=== PATIENT | male | born 1955 | race Caucasian/White ===

== ENCOUNTER 2023-05-11 09:18 | Inpatient (IN) | payer OTHER ==
--- OUTSIDE RECORDS SUMMARY | 2023-05-11 09:26 | XMS REPORT | Continuity of Care Document ---
:1955 Author Organization [facility] t Address [address] [place] [address] [place] [id number] Care Team Providers Name Role Phone Susan Hector Primary Care Physician Asaf Mosqueda RN Attending Clinician Unavailable Talya Stanley RN Attending Clinician Unavailable Margy Mike MD Attending Clinician Radha BERGMAN, Bigg Albright Attending Clinician Karoline PEÑA, Eugenio Blake Attending Clinician [phone] Domi Newman MD, Danita Attending Clinician [phone] Berry Morrow MD Attending Clinician Monty aPlm MD Attending Clinician Nisreen Haney MA Attending Clinician Unavailable Honey Hernandez RN Attending Clinician Unavailable Vandana Richard MD Attending Clinician [phone] Mary PEÑA, Virgilio Soto Attending Clinician [phone] Carol Akbar Attending Clinician Unavailable GARETT RANDLE Attending Clinician Unavailable Brittany Franco RN Attending Clinician Unavailable James SCHULTE, Aubrey Attending Clinician Unavailable Suzie Forrest RN Attending Clinician Unavailable Alex Del Valle Attending Clinician Unavailable Latoya Correa MA Attending Clinician Unavailable Faith Lux MD Attending Clinician [phone] Provider, Unknown Attending Clinician Unavailable Reny Attending Clinician Unavailable Herve PEÑA, Anoop Attending Clinician Renzo PEÑA, Leonidas Huitron Attending Clinician [phone] Scott Butler MA Attending Clinician Unavailable Mary Alice PE[facility] Gillian PEÑA, Herbie Attending Clinician Rodney MORALES, Rubens Azevedo Attending Clinician [phone] Rodriguez PEÑA, Kristopher Mckeon Attending Clinician Kayla MORALES, Linda Sewell Attending Clinician [phone] [facility], Ana Laura Attending Clinician Unavailable Natasha Toussaint Attending Clinician Unavailable Ashlie RN, Patricia Attending Clinician Unavailable Ailyn Rodriguez MA Attending Clinician Unavailable Ahmet Lamas MD Attending Clinician Kayy Attending Clinician Unavailable Talya Washington Attending Clinician Rolan Leal MD Attending Clinician Winter Mendoza APRN Attending Clinician Rajani Alves MA Attending Clinician Unavailable Cipriano Leiva MD Attending Clinician Darion Dykes Attending Clinician [phone] MD AHMET LAMAS Attending Clinician Unavailable Juaquin Tyler Attending Clinician [phone] EUGENIO MCKEON Admitting Clinician Unavailable FAITH LUX Admitting Clinician Unavailable Reny Admitting Clinician Unavailable ANOOP EDGAR Admitting Clinician Unavailable MD KRISTOPHER FRIAS Admitting Clinician Unavailable Kayy Admitting Clinician Unavailable AHMET LAMAS Admitting Clinician Unavailable ANDREW GOINS Admitting Clinician Unavailable Payers Payer Name Policy Type Policy Number Effective Date Expiration Date Margarita MCALLISTER (MEDICARE [id number] 2021 REPLACEMENT PPO) 00:00:00 ESVIN [id number] 2000 2021 00:00:00 00:00:00 Problems Condition Condition Condition Status Onset Resolution Last Treating Co mments Source Name Details Category Date Date Treatment Clinician Date Acute Acute Disease Active 2022-07 [facility] hepatic hepatic 0-08 st encephalop encephalop 00:00: Ho spita athy athy 00 l Other Other Disease Active [facility] ascites ascites 03-28 st 00:00: Hospita 00 l Disorder Disorder Disease Active [facility] di of liver of liver 03-28 st 00:00: Hospita 00 l AV block AV block Disease Active [facility] di 02-08 st 00:00: Hospita 00 l Diabetes Diabetes Disease Active [facility] di mellitus mellitus 02-08 st without without 00:00: Hospita complicati complicati 00 l on on Hyperlipid Hyperlipid Disease Active M ethodi emia emia 02-08 st 00:00: Hospita 00 l Rodney Rodney Problem Active Strong hematuria Hematuria 5-03 Metr o 00:00: Urology 00 Sick sinus Sick sinus Disease Active M ethodi syndrome syndrome 11-09 st 00:00: Hospita 00 l CAD CAD Disease Active Overview: Method i (coronary (coronary 3-15 Formattin s t artery artery 00:00: g of this Hospita disease) disease) 00 note l might be different from the original. 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 00:00: Hospit a 00 l Right Right Problem Active 2020-07 [facility] inguinal Inguinal 0-25 [facility] hernia Hernia 00:00: Urology 00 Neoplasm Neoplasm Problem Active 2018-07 [place] of of 1-13 [facility] prostate Prostate 00:00: Urolog y 00 Raised Raised Problem Active 2018-07 [facility] prostate Prostate 1-10 [facility] specific Specific 00:00: Urolog y antigen Antigen 00 Benign Benign Disease Active 2018-07 [facility] prostatic prostatic 0-03 st hyperplasi hyperplasi 00:00: Ho spita a with a with 00 l urinary urinary obstructio obstructio n n History of History of Problem Active 2018-07 H imer calculus Calculus 0-03 [facility] of kidney of Kidney 00:00: Urol ogy 00 Hypertensi Hypertensi Disease Active M ethodi ve ve 3-29 st disorder disorder 00:00: Hospit a 00 l Kidney Kidney Problem Active [facility] stone Stone 3-29 [facility] 00:00: Urology 00 Family Family Problem Active [facility] history of History of 3-29 Me tro prostate Prostate 00:00: Urolog y cancer Cancer 00 Arteriopat Arteriopat Problem Active H imer hic hic 3-29 [facility] impotence Impotence 00:00: Urol ogy 00 Liver Liver Disease Active [facility] cirrhosis cirrhosis st secondary secondary Hosp es to ANGUIANO to ANGUIANO l Allergies, Adverse Reactions, Alerts Allergy Allergy Status Severity Reaction(s) Onset Inactive Treating Comm ents Source Name Type Date Date Clinician Strawber Propensi Active Rash 2022-07 Method i ry ty to 0-09 st adverse 00:00: Hospita reaction 00 l s to drug Sulfa Propensi Active Rash 2020-07 [facility] (Sulfona ty to 1 st mide adverse 00:00: Hospita Antibiot reaction 00 l ics) s to drug SULFUR Allergy Active Moderate Hives [facility] to to severe [facility] substanc Urology e Social History Social Habit Start Date Stop Date Quantity Comments Source Gender identity 2021-05-11 Identifies as male M ethodist 10:57:57 gender (finding) Hospital Sexual orientation 2021-05-11 Heterosexual Meth odist 10:57:57 (finding) Hospital History of tobacco Passive smoker [facility] use Hospital History of Social 2023-04-24 2023-04-[address] function 00:00:00 00:00:00 Hospital Alcohol intake 2023-01-08 2023-01-08 Current drinker of Me [facility]ist 00:00:00 00:00:00 alcohol (finding) Hospita l Cigarette 2022-07-06 2022-07-06 [facility]into pack-years 00:00:00 00:00:00 Hospital Tobacco use and 2022-07-06 2022-07-06 Smokeless tobacco [facility] exposure 00:00:00 00:00:00 non-user Hospital Alcohol Comment 2022-01-02 2022-01-02 occasional [facility]into 00:00:00 00:00:00 Hospital Sex Ass[birth year] At [birth year] M [facility] 00:00:00 00:00:00 Hospital Smoking Status Start Date Stop Date Source Never smoked tobacco [facility] Medications Ordered Filled Start Stop Current Ordering Indication Dosage Frequency Signature Comments Components Source Medication Medication Date Date Medication? Clinician (SIG) Name Name lactulose 2022-07- No 200g Insert 300 M ethodi 20 gram/30 0-16 10-17 mL ([address] mL solution 00:00: 04:59 total) Hos jenni solution 00 :00 into the l rectum once for 1 dose. zinc 2022-07- Yes 1{capsu QD Take 1 [facility] sulfate 0-12 11-12 le} capsule by st (ZINCATE) 00:00: 05:59 mouth Hospit a 50 mg zinc 00 :00 daily for l (220 mg) 30 days. capsule vit 2022-07- No 1{tbl} QD Take 1 [facility] C/E/Zn/liz 0-11 10-[address] r/lutein/ze 15:33: 00:00 mouth Hosp es axan 43 :00 daily. l (PRESERVISI ON AREDS-2 ORAL) levothyroxi 2022-07 Yes 75ug QD Take 1 Meth ramesh ne 0-11 tablet (75 st (SYNTHROID) 15:33: mcg total) Hospita 75 mcg 41 by mouth l tablet every morning. cholecalcif 2022-07 Yes 5000U QD Take 1 Met hodi jass, 0-[address] vitamin D3, 15:33: (5,000 Hosp es 5,000 unit 41 Units l capsule total) by mouth daily. propranoloL 2022-07 Yes 10mg Q.5D Take 1 Meth ramesh (INDERAL) 0-11 tablet (10 st 10 MG 15:33: mg total) Hospita tablet 41 by mouth 2 l (two) times a day. AMILoride 2022-07 Yes 20mg QD Take 4 Method i (MIDAMOR) 5 0-[address] MG tablet 15:33: (20 mg Hospit a 41 total) by l mouth daily. Patient takes 4 tablets once daily traMADoL 2022-07 Yes [id number] 50mg Q6H Take 1 Method i (ULTRAM) 50 0-11 tablet (50 st mg tablet 15:33: mg total) Hos jenni 41 by mouth l every 6 (six) hours as needed for moderate pain .acute pain. lactulose 2022-07- Yes 20g [id number] Take 30 mL [facility] 20 gram/30 0-11 11-11 [id number] (20 g s t mL solution 00:00: 05:59 3D total) by Hospita 00 :00 mouth 3 l (three) times a day for 30 days. lactulose 2022-07- No 10g QD Take 15 mL M ethodi 10 gram/15 0-03 10-11 ([address] mL (15 mL) 00:00: 00:00 total) by H ospita solution 00 :00 mouth l daily for 30 days. furosemide 2022-07- Yes 40mg Q.5D Take 1 Meth ramesh (LASIX) 40 0-02 11-02 tablet (40 st mg tablet 00:00: 04:59 mg total) Ho spita 00 :00 by mouth 2 l (two) times a day for 30 days. lactulose 2022- No 10g Q.[id number] Take 15 mL [facility] (CHRONULAC) 9-12 10-02 [id number] ([address] 10 gram/15 00:00: 00:00 3D total) by H ospita mL solution 00 :00 mouth 3 l (three) times a day as needed (confusion ). riFAXimin 2022-0 Yes 550mg Q.5D Take 1 Metho di (Xifaxan) 9-[address] 550 mg 00:00: (550 mg Hospita tablet 00 total) by l mouth 2 (two) times a day. clopidogreL 2022-0 2022- No 75mg QD Take 1 Met hodi (PLAVIX) 75 12-18- tablet (75 s t mg tablet 00:00: 00:00 mg total) Ho spita 00 :00 by mouth l daily for 360 days. aspirin 2022-0 2022- No 81mg QD Take 1 [facility] (ECOTRIN) 12-18 08-10 tablet (81 st 81 MG 00:00: 00:00 mg total) Hospit a enteric 00 :00 by mouth l coated daily for tablet 360 days. aspirin 2022-0 2022- No 81mg QD Take 1 [facility] (ECOTRIN) 12-14- tablet (81 st 81 MG 11:24: 00:00 mg total) Hospit a enteric 24 :00 by mouth l coated daily. tablet Stop a year ago propranoloL 2022-0 Yes 10mg Q.5D Take 1 Meth ramesh (INDERAL) 4-29 tablet (10 st 10 MG 15:52: mg total) Hospita tablet 00 by mouth 2 l (two) times a day. AMILoride 2022-0 Yes 20mg QD Take 4 Method i (MIDAMOR) 5 4-[address] MG tablet 15:52: (20 mg Hospit a 00 total) by l mouth daily. Patient takes 4 tablets daily as per aspirin 2022-0 Yes 81mg QD Take 1 [facility] (ECOTRIN) 4-29 tablet (81 st 81 MG 15:52: mg total) Hospita enteric 00 by mouth l coated daily. tablet levothyroxi 2022-0 Yes 75ug QD Take 1 Meth ramesh ne 4-28 tablet (75 st (SYNTHROID) 15:54: mcg total) Hospita 75 mcg 15 by mouth l tablet daily. vit 2022-0 Yes Take by [facility] C/E/Zn/liz 4-[address] r/lutein/ze 15:54: Last dose H ospita axan 15 taken l (PRESERVISI 12/26/2021 ON AREDS-2 ORAL) cholecalcif 2022-0 Yes QD daily. Meth ramesh jass, 11-[address] vitamin D3, 15:54: taken Hospi ta 1,000 unit 15 12/26/2021 l tablet aspirin 2022-0 2022- No 81mg QD Take 1 [facility] (ECOTRIN) 11-09 tablet (81 st 81 MG 07:16: 00:00 mg total) Hospit a enteric 03 :00 by mouth l coated daily. tablet Last dose taken 12/26/2021 aspirin 2022-0 3- No 81mg QD Take 1 [facility] (ECOTRIN) 11-09 tablet (81 st 81 MG 07:16: 00:00 mg total) Hospit a enteric 03 :00 by mouth l coated daily. tablet Last dose taken 12/26/2021 cinnamon 2022-0 2022- No Q24H daily. Method i bark 500 mg 11-09 st capsule 07:15: 00:00 Hospita 14 :00 l cinnamon 2022-0 3- No Q24H daily. Method i bark 500 mg 11-09 st capsule 07:15: 00:00 Hospita 14 :00 l coenzyme 2022-0 2022- No 100mg QD Take 1 Metho di Q10 100 mg 11-[address] capsule 07:15: 00:00 (100 mg Hospit a 07 :00 total) by l mouth daily. Last dose taken 12/26/2021 coenzyme 2022-0 3- No 100mg QD Take 1 Metho di Q10 100 mg 11-[address] capsule 07:15: 00:00 (100 mg Hospit a 07 :00 total) by l mouth daily. Last dose taken 12/26/2021 cephalexin 2022-0 2022- No 250mg Q.5D Take 1 Met hodi (KEFLEX) 3-25 -[address] 250 MG 00:00: 04:59 (250 mg Hospita capsule 00 :00 total) by l mouth 2 (two) times a day for 7 days. cephalexin 2022-0 2022- No 250mg Q.5D Take 1 Met hodi (KEFLEX) 3-25 -[address] 250 MG 00:00: 04:59 (250 mg Hospita capsule 00 :00 total) by l mouth 2 (two) times a day for 7 days. pantoprazol 2021-07 Yes 40mg Q.5D Take 1 Meth ramesh e 0-17 tablet (40 st (PROTONIX) 00:00: mg total) Ho spita 40 MG EC 00 by mouth 2 l tablet (two) times a day. pantoprazol 2021-07 Yes 40mg Q.5D Take 1 Meth ramesh e 0-17 tablet (40 st (PROTONIX) 00:00: mg total) Ho spita 40 MG EC 00 by mouth 2 l tablet (two) times a day. spironolact 2021-07- No Metho di one 0- 04-28 st (ALDACTONE) 00:00: 00:00 Hospi ta 100 MG 00 :00 l tablet spironolact 2021-07- No Metho di one 0- 04-28 st (ALDACTONE) 00:00: 00:00 Hospi ta 100 MG 00 :00 l tablet furosemide Yes 40mg QD Take 1 Metho di (LASIX) 40 7-14 tablet (40 st mg tablet 00:00: mg total) Hos jenni 00 by mouth l daily. lactulose Yes TAKE BY Metho di (CHRONULAC) [address] 10 gram/15 00:00: TWICE A Hosp es mL solution 00 DAY l furosemide 2022- No 40mg QD Take 1 Meth ramesh (LASIX) 40 7-14 10-02 tablet (40 st mg tablet 00:00: 00:00 mg total) Ho spita 00 :00 by mouth l daily. lactulose 2022- No 10g Q.5D Take 15 mL M ethodi (CHRONULAC) 01-25-12 ([address] 10 gram/15 00:00: 00:00 total) by H ospita mL solution 00 :00 mouth 2 l (two) times a day. gabapentin 2021- No 100mg Q.[id number] Take 1 [facility] (NEURONTIN) 01-[id number] 100 mg 00:00: 04:59 3D (100 mg Hospita capsule 00 :00 total) by l mouth 3 (three) times a day for 5 days. traMADoL 2021- No [id number] 50mg Q6H Take 1 Metho di (Ultram) 50 01-12 tablet (50 s t mg tablet 00:00: 04:59 mg total) Ho spita 00 :00 by mouth l every 6 (six) hours as needed for moderate pain for up to 5 days .acute pain. acetaminoph 2021- No 1000mg Q6H Take 2 M ethodi en 01-[address] (TYLENOL) 00:00: 04:59 (1,000 mg Ho spita 500 MG 00 :00 total) by l tablet mouth every 6 (six) hours for 3 days. Lidocaine Lidocaine No Lidocaine Strong Viscous 2 % Viscous 2 % Viscous 2 [facility] mucosal mucosal % mucosal Urol ogy solution solution solution [place] 3-6-9 [facility] 3-6-9 No Q1D [place] Strong 1,200 mg 1,200 mg 3-6-9 [facility] capsule capsule 1,200 mg Urolo gy Take every Take every capsule day by oral day by oral Take every route. route. day by oral route. pantoprazol pantoprazol No pantoprazo [facility] e 40 mg e 40 mg le 40 mg [facility] tablet,jacinto tablet,jacinto tablet,del Urology yed release yed release ayed TAKE 1 TAKE 1 release TABLET BY TABLET BY TAKE 1 MOUTH TWO MOUTH TWO TABLET BY TIMES DAILY TIMES DAILY MOUTH TWO TIMES DAILY propranolol propranolol No propranolo Strong 10 mg 10 mg l 10 mg [facility] tablet TAKE tablet TAKE tablet Urology 1 TABLET BY 1 TABLET BY TAKE 1 MOUTH TWICE MOUTH TWICE TABLET BY A DAY A DAY MOUTH .START / .START /2 TWICE A DOSE FOR 1 DOSE FOR 1 DAY .START WEEK WEEK 1/2 DOSE FOR 1 WEEK tramadol 50 tramadol 50 No tramadol Strong mg tablet mg tablet 50 mg Metr o TAKE 1 TAKE 1 tablet Urology TABLET BY TABLET BY TAKE 1 MOUTH EVERY MOUTH EVERY TABLET BY 8 HOURS 8 HOURS MOUTH NEEDED FOR NEEDED FOR EVERY 8 PAIN START PAIN START HOURS AFTER AFTER NEEDED FOR PROCEDURE PROCEDURE PAIN START AFTER PROCEDURE Vitamin B6 Vitamin B6 No Vitamin B6 Strong QD QD QD [facility] Asprin Ec Asprin Ec No 1 Q1D Asprin Ec Strong Low Dose 81 Low Dose 81 Low Dose [facility] mg mg 81 mg Urology tablet,jacinto tablet,jacinto tablet,del yed release yed release ayed Take 1 Take 1 release tablet tablet Take 1 every day every day tablet by oral by oral every day route. route. by oral route. Cinnamon Cinnamon No Q1D Cinnamon Evin ston 500 mg 500 mg 500 mg [facility] capsule capsule capsule Urolog y Take every Take every Take every day by oral day by oral day by route. route. oral route. coenzyme coenzyme No coenzyme Evin ston Q10 QD Q10 QD Q10 QD [facility] Flucelvax Flucelvax No Flucelvax [facility] Quad Quad [facility] (PF) 60 mcg (PF) 60 mcg (PF) 60 (15 mcg x (15 mcg x mcg (15 4)/0.5 mL 4)/0.5 mL mcg x IM syringe IM syringe 4)/0.5 mL TO BE TO BE IM syringe ADMINISTERE ADMINISTERE TO BE D BY D BY ADMINISTER PHARMACIST PHARMACIST ED BY FOR FOR PHARMACIST IMMUNIZATIO IMMUNIZATIO FOR N N IMMUNIZATI ON irbesartan irbesartan No irbesartan [facility] 300 mg 300 mg 300 mg [facility] tablet TAKE tablet TAKE tablet Urology 1 TABLET BY 1 TABLET BY TAKE 1 MOUTH EVERY MOUTH EVERY TABLET BY DAY DAY MOUTH EVERY DAY levothyroxi levothyroxi No levothyrox [facility] ne 75 mcg ne 75 mcg ine 75 mcg [facility] tablet TAKE tablet TAKE tablet Urology 1 TABLET BY 1 TABLET BY TAKE 1 MOUTH EVERY MOUTH EVERY TABLET BY DAY DAY MOUTH EVERY DAY [facility] 3-6-9 [facility] 3-6-9 No Q1D [place] [facility] 1,200 mg 1,200 mg 3-6-9 [facility] capsule capsule 1,200 mg Urolo gy Take every Take every capsule day by oral day by oral Take every route. route. day by oral route. rosuvastati rosuvastati No rosuvastat [facility] n 10 mg n 10 mg in 10 mg [facility] tablet Take tablet Take tablet Urology 1 tablet 1 tablet Take 1 every day every day tablet by oral by oral every day route. route. by oral route. Shingrix Shingrix No Shingrix Evin ston (PF) 50 (PF) 50 (PF) 50 [facility] mcg/0.5 mL mcg/0.5 mL mcg/0.5 mL Urology intramuscul intramuscul intramuscu ar ar lar suspension, suspension, suspension kit kit , kit PHARMACY PHARMACY PHARMACY ADMINISTERE ADMINISTERE ADMINISTER D D ED Vitamin B6 Vitamin B6 No Vitamin B6 [facility] QD QD QD [facility] Asprin Ec Asprin Ec No 1 Q1D Asprin Ec [facility] Low Dose 81 Low Dose 81 Low Dose [facility] mg mg 81 mg Urology tablet,jacinto tablet,jacinto tablet,del yed release yed release ayed Take 1 Take 1 release tablet tablet Take 1 every day every day tablet by oral by oral every day route. route. by oral route. Cinnamon Cinnamon No Q1D Cinnamon Evin ston 500 mg 500 mg 500 mg [facility] capsule capsule capsule Urolog y Take every Take every Take every day by oral day by oral day by route. route. oral route. coenzyme coenzyme No coenzyme Evin ston Q10 QD Q10 QD Q10 QD [facility] Flucelvax Flucelvax No Flucelvax [facility] Quad Quad Quad [facility] (PF) 60 mcg (PF) 60 mcg (PF) 60 (15 mcg x (15 mcg x mcg (15 4)/0.5 mL 4)/0.5 mL mcg x IM syringe IM syringe 4)/0.5 mL TO BE TO BE IM syringe ADMINISTERE ADMINISTERE TO BE D BY D BY ADMINISTER PHARMACIST PHARMACIST ED BY FOR FOR PHARMACIST IMMUNIZATIO IMMUNIZATIO FOR N N IMMUNIZATI ON irbesartan irbesartan No irbesartan [facility] 300 mg 300 mg 300 mg [facility] tablet TAKE tablet TAKE tablet Urology 1 TABLET BY 1 TABLET BY TAKE 1 MOUTH EVERY MOUTH EVERY TABLET BY DAY DAY MOUTH EVERY DAY levothyroxi levothyroxi No levothyrox [facility] ne 75 mcg ne 75 mcg ine 75 mcg [facility] tablet TAKE tablet TAKE tablet Urology 1 TABLET BY 1 TABLET BY TAKE 1 MOUTH EVERY MOUTH EVERY TABLET BY DAY DAY MOUTH EVERY DAY [facility] 3-6-9 [facility] 3-6-9 No Q1D [facility] 1,200 mg 1,200 mg 3-6-9 [facility] capsule capsule 1,200 mg Urolo gy Take every Take every capsule day by oral day by oral Take every route. route. day by oral route. rosuvastati rosuvastati No rosuvastat [facility] n 10 mg n 10 mg in 10 mg [facility] tablet Take tablet Take tablet Urology 1 tablet 1 tablet Take 1 every day every day tablet by oral by oral every day route. route. by oral route. Shingrix Shingrix No Shingrix Evin ston (PF) 50 (PF) 50 (PF) 50 [facility] mcg/0.5 mL mcg/0.5 mL mcg/0.5 mL Urology intramuscul intramuscul intramuscu ar ar lar suspension, suspension, suspension kit kit , kit PHARMACY PHARMACY PHARMACY ADMINISTERE ADMINISTERE ADMINISTER D D ED Vitamin B6 Vitamin B6 No Vitamin B6 [facility] QD QD QD [facility] amiloride 5 amiloride 5 No amiloride Strong mg tablet mg tablet 5 mg [facility] TAKE 4 TAKE 4 tablet Urology TABLETS BY TABLETS BY TAKE 4 MOUTH EVERY MOUTH EVERY TABLETS BY DAY DAY MOUTH EVERY DAY Cinnamon Cinnamon No Q1D Cinnamon Evin ston 500 mg 500 mg 500 mg [facility] capsule capsule capsule Urolog y Take every Take every Take every day by oral day by oral day by route. route. oral route. coenzyme coenzyme No coenzyme Evin ston Q10 QD Q10 QD Q10 QD [facility] furosemide furosemide No furosemide [facility] 40 mg 40 mg 40 mg [facility] tablet TAKE tablet TAKE tablet Urology 1 TABLET BY 1 TABLET BY TAKE 1 MOUTH EVERY MOUTH EVERY TABLET BY DAY DAY MOUTH EVERY DAY gabapentin gabapentin No gabapentin [facility] 100 mg 100 mg 100 mg [facility] capsule capsule capsule Urolog y TAKE 1 TAKE 1 TAKE 1 CAPSULE CAPSULE CAPSULE (100 MG (100 MG (100 MG TOTAL) BY TOTAL) BY TOTAL) BY MOUTH 3 MOUTH 3 MOUTH 3 (THREE) (THREE) (THREE) TIMES A DAY TIMES A DAY TIMES A FOR 5 DAYS. FOR 5 DAYS. DAY FOR 5 DAYS. lactulose lactulose No lactulose [facility] 10 gram/15 10 gram/15 10 gram/15 [facility] mL oral mL oral mL oral Urolog y solution solution solution TAKE BY TAKE BY TAKE BY MOUTH 15ML MOUTH 15ML MOUTH 15ML TWICE A DAY TWICE A DAY TWICE A DAY levothyroxi levothyroxi No levothyrox [facility] ne 75 mcg ne 75 mcg ine 75 mcg [facility] tablet TAKE tablet TAKE tablet Urology 1 TABLET BY 1 TABLET BY TAKE 1 MOUTH EVERY MOUTH EVERY TABLET BY DAY IN THE DAY IN THE MOUTH MORNING ON MORNING ON EVERY DAY EMPTY EMPTY IN THE STOMACH FOR STOMACH FOR MORNING ON 90 DAYS 90 DAYS EMPTY STOMACH FOR 90 DAYS Lidocaine Lidocaine No Lidocaine [facility] Viscous 2 % Viscous 2 % Viscous 2 [facility] mucosal mucosal % mucosal Urol ogy solution solution solution [place] 3-6-9 [facility] 3-6-9 No Q1D [place] [facility] 1,200 mg 1,200 mg 3-6-9 [facility] capsule capsule 1,200 mg Urolo gy Take every Take every capsule day by oral day by oral Take every route. route. day by oral route. pantoprazol pantoprazol No pantoprazo Strong e 40 mg e 40 mg le 40 mg [facility] tablet,jacinto tablet,jacinto tablet,del Urology yed release yed release ayed TAKE 1 TAKE 1 release TABLET BY TABLET BY TAKE 1 MOUTH TWO MOUTH TWO TABLET BY TIMES DAILY TIMES DAILY MOUTH TWO TIMES DAILY propranolol propranolol No propranolo [facility] 10 mg 10 mg l 10 mg [facility] tablet TAKE tablet TAKE tablet Urology 1 TABLET BY 1 TABLET BY TAKE 1 MOUTH TWICE MOUTH TWICE TABLET BY A DAY A DAY MOUTH .START 07/16 .START 07/16 TWICE A DOSE FOR 1 DOSE FOR 1 DAY .START WEEK WEEK 07/16 DOSE FOR 1 WEEK tramadol 50 tramadol 50 No tramadol Strong mg tablet mg tablet 50 mg Metr o TAKE 1 TAKE 1 tablet Urology TABLET BY TABLET BY TAKE 1 MOUTH EVERY MOUTH EVERY TABLET BY 8 HOURS 8 HOURS MOUTH NEEDED FOR NEEDED FOR EVERY 8 PAIN START PAIN START HOURS AFTER AFTER NEEDED FOR PROCEDURE PROCEDURE PAIN START AFTER PROCEDURE Vitamin B6 Vitamin B6 No Vitamin B6 [facility] QD QD QD [facility] amiloride 5 amiloride 5 No amiloride Strong mg tablet mg tablet 5 mg [facility] TAKE 4 TAKE 4 tablet Urology TABLETS (20 TABLETS (20 TAKE 4 MG) BY MG) BY TABLETS MOUTH DAILY MOUTH DAILY (20 MG) BY WITH FOOD WITH FOOD MOUTH DAILY WITH FOOD Cinnamon Cinnamon No Q1D Cinnamon Evin ston 500 mg 500 mg 500 mg [facility] capsule capsule capsule Urolog y Take every Take every Take every day by oral day by oral day by route. route. oral route. coenzyme coenzyme No coenzyme Evin ston Q10 QD Q10 QD Q10 QD [facility] furosemide furosemide No furosemide [facility] 40 mg 40 mg 40 mg [facility] tablet TAKE tablet TAKE tablet Urology 1 TABLET BY 1 TABLET BY TAKE 1 MOUTH EVERY MOUTH EVERY TABLET BY DAY DAY MOUTH EVERY DAY gabapentin gabapentin No gabapentin [facility] 100 mg 100 mg 100 mg [facility] capsule capsule capsule Urolog y TAKE 1 TAKE 1 TAKE 1 CAPSULE CAPSULE CAPSULE (100 MG (100 MG (100 MG TOTAL) BY TOTAL) BY TOTAL) BY MOUTH 3 MOUTH 3 MOUTH 3 (THREE) (THREE) (THREE) TIMES A DAY TIMES A DAY TIMES A FOR 5 DAYS. FOR 5 DAYS. DAY FOR 5 DAYS. lactulose lactulose No lactulose [facility] 10 gram/15 10 gram/15 10 gram/15 [facility] mL oral mL oral mL oral Urolog y solution solution solution TAKE BY TAKE BY TAKE BY MOUTH 15ML MOUTH 15ML MOUTH 15ML TWICE A DAY TWICE A DAY TWICE A DAY levothyroxi levothyroxi No levothyrox [facility] ne 75 mcg ne 75 mcg ine 75 mcg [facility] tablet TAKE tablet TAKE tablet Urology 1 TABLET BY 1 TABLET BY TAKE 1 MOUTH EVERY MOUTH EVERY TABLET BY DAY IN THE DAY IN THE MOUTH MORNING ON MORNING ON EVERY DAY EMPTY EMPTY IN THE STOMACH FOR STOMACH FOR MORNING ON 90 DAYS 90 DAYS EMPTY STOMACH FOR 90 DAYS Immunizations Ordered Immunization Filled Immunization Date Status Commen ts Source Name Name MicroVisionID-19 2021-05-26 Completed Methodis t AD26 VACCINATION 00:00:00 [facility] FLUCELVAX QUAD PF 2021-04-[address] 00:00:00 [facility] [employer] COVID-19 2020-09-23 Completed Methodis t AD26 VACCINATION 00:00:00 [facility] zoster recombinant - zoster recombinant - 2020-05-[address] [facility] ea(s) ea(s) 00:00:00 Urology influenza, influenza, 2020-04-[address] [facility] injectable, injectable, 00:00:00 Urology quadrivalent, quadrivalent, preservative free preservative free influenza, influenza, 2020-04-[address] [facility] injectable, injectable, 00:00:00 Urology quadrivalent, quadrivalent, preservative free preservative free influenza, influenza, 2019-03-[address] [facility] injectable, injectable, 00:00:00 Urology quadrivalent quadrivalent influenza, influenza, 2019-03-[address] [facility] injectable, injectable, 00:00:00 Urology quadrivalent quadrivalent influenza, influenza, 2019-03-[address] [facility] injectable, injectable, 00:00:00 Urology quadrivalent quadrivalent influenza, influenza, 2019-03-[address] [facility] injectable, injectable, 00:00:00 Urology quadrivalent quadrivalent pneumococcal pneumococcal 2016-04-14 Completed [facility] tro polysaccharide PPV23 polysaccharide PPV23 00:00:00 Urology pneumococcal pneumococcal 2016-04-14 Completed [facility] tro polysaccharide PPV23 polysaccharide PPV23 00:00:00 Urology pneumococcal pneumococcal 2016-04-14 Completed [facility] tro polysaccharide PPV23 polysaccharide PPV23 00:00:00 Urology pneumococcal pneumococcal 2016-04-14 Completed [facility] polysaccharide PPV23 polysaccharide PPV23 00:00:00 Urology Pneumococcal 2016-04-14 Completed [facility] Pol[facility]00 [facility] P[facility] COVID-19 Unknown Completed [facility] FLUCELVAX QUAD PF Unknown [facility] Pneumococcal Unknown Completed [facility] Pol[facility] Vital Signs Vital Name Observation Time Observation Value Comments Source BP Diastolic 2022-11-21 00:00:00 80 [facility]Hg[facility] Height 2022-11-21 00:00:00 70 [in_i] [facility] BMI (Body Mass 2022-11-21 00:00:00 27.3 kg/m2 [place] Index) Urology BP Systolic 2022-11-21 00:00:00 139 mm[Hg] [facility] Body Weight 2022-11-21 00:00:00 190 [lb_av] [facility] BP Diastolic 2022-11-14 00:00:00 72 mm[Hg] [facility] Height 2022-11-14 00:00:00 70 [in_i] [facility] BMI (Body Mass 2022-11-14 00:00:00 27.3 kg/m2 [place] Index) Urology BP Systolic 2022-11-14 00:00:00 145 mm[Hg] [facility] Body Weight 2022-11-14 00:00:00 190 [lb_av] [facility] Height 2021-05-08 00:00:00 70 [in_i] [facility] BMI (Body Mass 2021-05-08 00:00:00 26.8 kg/m2 [place] Index) [facility] Body Weight 2021-05-08 00:00:00 187 [lb_av] [facility] Height 2021-04-19 00:00:00 70 [in_i] [facility] Systolic blood 2023-04-25 18:39:00 130 mm[Hg] [facility] pressure Diastolic blood 2023-04-25 18:39:00 56 mm[Hg] [facility] pressure Heart rate 2023-04-25 18:39:00 59 /min [facility] Body temperature 2023-04-25 18:39:00 35.72 Marcella [facility] Respiratory rate 2023-04-25 18:39:00 17 /min [facility] Body height 2023-04-25 18:39:00 190.5 cm [facility] Body weight 2023-04-25 18:39:00 75.388 kg [facility] BMI 2023-04-25 18:39:00 20.77 kg/m2 [facility] Oxygen saturation in 2023-04-25 18:39:00 99 /min [facility] Arterial blood by Pulse oximetry Systolic blood 2022-11-09 20:30:00 128 mm[Hg] [facility] pressure Diastolic blood 2022-11-09 20:30:00 74 mm[Hg] [facility] pressure Heart rate 2022-11-09 20:30:00 59 /min [facility] Respiratory rate 2022-11-09 20:30:00 20 /min [facility] Oxygen saturation in 2022-11-09 20:30:00 99 /min [facility] Arterial blood by Pulse oximetry Body temperature 2022-11-09 14:42:00 36.61 Marcella [facility] Body height 2022-11-09 11:59:00 179.1 cm [facility] Body weight 2022-11-09 11:59:00 84.641 kg [facility] BMI 2022-11-09 11:59:00 26.40 kg/m2 [facility] Procedures Procedure Date / Time Performing Source Performed Clinician BASIC METABOLIC PANEL 2023-05-10 17:44:00 Margy Mike [facility] CBC WITH PLATELET AND 2023-05-10 17:44:00 Margy Mike [facility] DIFFERENTIAL PROTHROMBIN TIME WITH INR 2023-05-10 17:44:00 Margy Mike [facility] HEPATIC FUNCTION PANEL 2023-05-10 17:44:00 Margy Mike [facility] CBC WITH PLATELET AND 2023-04-24 11:39:00 [facility] DI[facility]ENTIAL [place] PROTHROMBIN TIME WITH INR 2023-04-24 11:39:00 Dinakar, [facility] BASIC METABOLIC PANEL 2023-04-24 11:39:00 Dinakar, [facility] HEPATIC FUNCTION PANEL 2023-04-24 11:39:00 [facility], [facility] PHOSPHORUS LEVEL 2023-04-24 11:39:00 Dinakar, Eugenio [facility] [place] MAGNESIUM LEVEL 2023-04-24 11:39:00 Dinakar, Eugenio [facility] [place] AMMONIA LEVEL 2023-04-24 11:39:00 Domi Newman, Bernie Harrell spiliseth Danita ESTIMATED GFR 2023-04-24 11:39:00 Dinakar, Eug[facility]io [facility] [place] CBC WITH PLATELET AND 2023-04-23 08:28:00 Dinakar, [facility] DIFFERENTIAL [facility] PROTHROMBIN TIME WITH INR 2023-04-23 08:28:00 Dinakar, [facility] BASIC METABOLIC PANEL 2023-04-23 08:28:00 Dinakar, [facility] HEPATIC FUNCTION PANEL 2023-04-23 08:28:00 Dinakar, [facility] PHOSPHORUS LEVEL 2023-04-23 08:28:00 Dinakar, Eugenio [facility] MAGNESIUM LEVEL 2023-04-23 08:28:00 Dinakar, Eugenio Bernie [facility]rell [facility] [place] ESTIMATED GFR 2023-04-23 08:28:00 Dinakar, Eugenio Bernie [facility]rell [facility] [place] SMEAR REVIEW 2023-04-23 08:28:00 Dinakar, Eugenio Shinto spital [place] CBC WITH PLATELET AND 2023-04-22 09:32:00 Dinakar, [facility] DIFFERENTIAL [facility] PROTHROMBIN TIME WITH INR 2023-04-22 09:32:00 Dinakar, [facility] BASIC METABOLIC PANEL 2023-04-22 09:32:00 Dinakar, [facility] HEPATIC FUNCTION PANEL 2023-04-22 09:32:00 Dinakar, [facility] [place] PHOSPHORUS LEVEL 2023-04-22 09:32:00 Dinakar [facility] Shinto H [facility] MAGNESIUM LEVEL 2023-04-22 09:32:00 Dinakar, Eugenio Gibbs [facility] [place] ESTIMATED GFR 2023-04-22 09:32:00 DinAna María reevesh [facility] [place] SMEAR REVIEW 2023-04-22 09:32:00 Dinfrancheskar, Eugenio Shinto [facility] BLOOD CULTURE, AEROBIC & 2023-04-22 05:06:00 Dinakar, [facility] ANAEROBIC [facility] BLOOD CULTURE, AEROBIC & 2023-04-22 05:05:00 Dinakar, [facility] ANAEROBIC [facility] AMMONIA LEVEL 2023-04-22 03:41:00 Rehrer, [facility] XR CHEST 1 VW PORTABLE 2023-04-22 03:37:00 Rehrer, [facility] CT ABDOMEN PELVIS WO 2023-04-22 03:30:13 Rehrer, [facility] CONTRAST CT HEAD WO CONTRAST 2023-04-22 03:29:50 Rehrer, [facility] COVID-19, INFLUENZA A&B, AND 2023-04-22 03:06:00 Rehrer, [facility] RSV QUALITATIVE RT-PCR URINE CULTURE 2023-04-22 03:06:00 Rehrer, [facility] URINALYSIS SCREEN AND 2023-04-22 03:06:00 Rehrer, [facility] MICROSCOPY, WITH REFLEX TO CULTURE PROTHROMBIN TIME WITH INR 2023-04-22 02:29:00 Rehrer, [facility] PARTIAL THROMBOPLASTIN TIME 2023-04-22 02:29:00 Rehrer, [facility] (PTT) AMMONIA LEVEL 2023-04-22 02:28:00 Rehrer, [facility] CBC WITH PLATELET AND 2023-04-22 02:28:00 Rehrer, [facility] DIFFERENTIAL COMPREHENSIVE METABOLIC 2023-04-22 02:28:00 Rehrer, [facility] PANEL LACTIC ACID LEVEL 2023-04-22 02:28:00 [facility] ESTIMATED GFR 2023-04-22 02:28:00 Bayron Mckeon [facility] Dhruv SMEAR REVIEW 2023-04-22 02:28:00 [facility] BASIC METABOLIC PANEL 2023-04-19 16:30:00 [facility] CBC WITH PLATELET AND 2023-04-19 16:28:00 [facility] DIFFERENTIAL PROTHROMBIN TIME WITH INR 2023-04-19 16:27:00 [facility] HEPATIC FUNCTION PANEL 2023-04-19 16:25:00 [facility] PROTHROMBIN TIME WITH INR 2023-04-15 06:29:00 [facility] 2023-04-15 06:28:00 Kamille [facility] BASIC METABOLIC PANEL 2023-04-15 06:28:00 Shawnee Simental [facility] ESTIMATED GFR 2023-04-15 06:28:00 [facility] CBC WITH PLATELET AND 2023-04-15 06:28:00 Karoline [facility] DIFFERENTIAL [facility] POC GLUCOSE 2023-04-15 04:27:00 Karoline [facility] Ho spital [place] HEPATIC FUNCTION PANEL 2023-04-14 10:06:00 [facility] PROTHROMBIN TIME WITH INR 2023-04-14 10:06:00 [facility] CBC WITH PLATELET AND 2023-04-14 10:06:00 [facility] BASIC METABOLIC PANEL 2023-04-14 10:06:00 [facility] ESTIMATED GFR 2023-04-14 10:06:00 [facility] MAGNESIUM LEVEL 2023-04-14 10:06:00 [facility] PHOSPHORUS LEVEL 2023-04-14 10:06:00 Shawnee Simental [facility] POC GLUCOSE 2023-04-14 02:15:00 DinfrancheskarEugenio spital [place] MAGNESIUM LEVEL 2023-04-13 09:59:00 DinakarEugenio spital [place] PHOSPHORUS LEVEL 2023-04-13 09:59:00 DinakarEugenio ospital [place] HEPATIC FUNCTION PANEL 2023-04-13 09:59:00 [facility] PROTHROMBIN TIME WITH INR 2023-04-13 09:59:00 [facility] CBC WITH PLATELET AND 2023-04-13 09:59:00 Shawnee Simental [facility] BASIC METABOLIC PANEL 2023-04-13 09:59:00 Shawnee Simental [facility] ESTIMATED GFR 2023-04-13 09:59:00 [facility] POC GLUCOSE 2023-04-13 01:59:00 Bernie Trevino HEMOGLOBIN & HEMATOCRIT 2023-04-13 00:59:00 Jose Trevino [facility] Danita FIBRINOGEN 2023-04-12 15:03:00 Bernie Trevino PROTHROMBIN TIME WITH INR 2023-04-12 15:03:00 Margy Mike [facility] MAGNESIUM LEVEL 2023-04-12 09:46:00 DinEugenio reevestal [place] PHOSPHORUS LEVEL 2023-04-12 09:46:00 DinEugenio reeves ospital [place] HEPATIC FUNCTION PANEL 2023-04-12 09:46:00 Iris [facility] PROTHROMBIN TIME WITH INR 2023-04-12 09:46:00 Shereen [facility] BASIC METABOLIC PANEL 2023-04-12 09:46:00 Shawnee Simental [facility] HAPTOGLOBIN 2023-04-12 09:46:00 Shereen [facility] LDH 2023-04-12 09:46:00 Kamille [facility] RETICULOCYTE COUNT 2023-04-12 09:46:00 Kamille [facility] PATHOLOGIST REVIEW OF 2023-04-12 09:46:00 Iris [facility] PERIPHERAL SMEAR [place] ESTIMATED GFR 2023-04-12 09:46:[facility] P[facility]SE 2023-04-11 13:18:00 Bernie Trevino TYPE AND SCREEN 2023-04-11 10:37:00 Bernie Trevino HEMOGLOBIN & HEMATOCRIT 2023-04-11 10:37:00 Domi Newman [facility] PREPARE RBC 2023-04-11 10:37:00 Bernie Trevino BASIC METABOLIC PANEL 2023-04-11 09:28:00 Karoline [facility] CBC WITH PLATELET AND 2023-04-11 09:28:00 Karoline [facility] DIFFERENTIAL [facility] HEPATIC FUNCTION PANEL 2023-04-11 09:28:00 [facility] MAGNESIUM LEVEL 2023-04-11 09:28:00 Eugenio Mckeon [facility] PHOSPHORUS LEVEL 2023-04-11 09:28:00 Eugenio Mckeon [facility] PROTHROMBIN TIME WITH INR 2023-04-11 09:28:00 [facility] ESTIMATED GFR 2023-04-11 09:28:00 Eugenio Mckeonra SMEAR REVIEW 2023-04-11 09:28:00 Eugenio Mckeon [place] POC GLUCOSE 2023-04-11 01:56:00 Bernie Trevino TRANSFUSE CRYOPRECIPITATE 2023-04-10 22:43:00 [facility] P[facility] GLUCOSE 2023-04-10 21:12:00 Bernie Trevino TRANSFUSE CRYOPRECIPITATE 2023-04-10 21:08:00 [facility] Danita FIBRINOGEN 2023-04-10 17:45:00 Bernie Trevino PROTHROMBIN TIME WITH INR 2023-04-10 17:45:00 [facility] HEMOGLOBIN & HEMATOCRIT 2023-04-10 17:45:00 [facility] 2023-04-10 17:02:00 Bernie Trevino POC GLUCOSE 2023-04-10 13:02:00 Bernie Trevino POTASSIUM LEVEL 2023-04-10 11:49:00 Bernie Trevino AST (SGOT) 2023-04-10 11:49:00 Bernie Trevino BILIRUBIN DIRECT 2023-04-10 11:49:00 Bernie Trevino BASIC METABOLIC PANEL 2023-04-10 09:23:00 Dinakar, [facility] CBC WITH PLATELET AND 2023-04-10 09:23:00 Dinakar, [facility] DIFFERENTIAL [facility] HEPATIC FUNCTION PANEL 2023-04-10 09:23:00 [facility] MAGNESIUM LEVEL 2023-04-10 09:23:00 Dinfrancheskar, Eugenio ascencio [place] PHOSPHORUS LEVEL 2023-04-10 09:23:00 Dinakar, Eugenio Chakraborty ossharon [facility] PROTHROMBIN TIME WITH INR 2023-04-10 09:23:00 Dinleandro [facility] ESTIMATED GFR 2023-04-10 09:23:00 DinakarEugenio [place] POC GLUCOSE 2023-04-10 09:07:00 Bernie Trevino spital Danita POC GLUCOSE 2023-04-10 05:09:00 Domi PackersBernie spital [place] POC GLUCOSE 2023-04-10 01:09:00 Domi PackersBernie spital [place] POC GLUCOSE 2023-04-09 20:55:00 Domi PackersBernie spital [place] POC GLUCOSE 2023-04-09 17:00:00 Bernie Trevino spital [place] POC GLUCOSE 2023-04-09 12:58:00 Dinakar, Eugenio Harrell spital [place] BASIC METABOLIC PANEL 2023-04-09 10:31:00 Dinakar, [facility] CBC WITH PLATELET AND 2023-04-09 10:31:00 Dinakar, [facility] DIFFERENTIAL [facility] HEPATIC FUNCTION PANEL 2023-04-09 10:31:00 Dinakar, [facility] MAGNESIUM LEVEL 2023-04-09 10:31:00 Dinakar, Eugenio Gibbs [facility] PHOSPHORUS LEVEL 2023-04-09 10:31:00 Dinakar, Eugenio Chakraborty ospital [place] PROTHROMBIN TIME WITH INR 2023-04-09 10:31:00 Dinakar, [facility] ESTIMATED GFR 2023-04-09 10:31:00 Dinakar, Eugenio Harrell spital [place] POC GLUCOSE 2023-04-09 08:56:00 Dinakar, Eugenio Harrell spital [place] POC GLUCOSE 2023-04-09 04:59:00 Dinakar, Eugenio Harrell spital [place] POC GLUCOSE 2023-04-09 01:16:00 Dinakar, Eugenio Harrell spital [place] IR TIPS 2023-04-08 23:43:56 Margy Mike spital TRANSFUSE FRESH FROZEN 2023-04-08 20:58:00 Cipriano Bush [facility] PLASMA [place] ANESTHESIA INTUBATION 2023-04-08 20:53:00 Virgilio Hernandez [facility] Rhakel POC GLUCOSE 2023-04-08 19:04:00 Dinakar, Eugenio Gibbs spital [place] TRANSFUSE RED BLOOD CELLS 2023-04-08 17:29:00 [facility] William POC GLUCOSE 2023-04-08 17:00:00 Dinakar, Eugenio Gibbs spital [place] CBC WITH PLATELET AND 2023-04-08 15:56:00 [facility] DIFFERENTIAL William POTASSIUM LEVEL 2023-04-08 15:56:00 Dinakar, Eugenio Harrell spital [place] POC GLUCOSE 2023-04-08 15:46:00 Dinakar, Eugenio Harrell spital [place] POC GLUCOSE 2023-04-08 15:05:00 Dinakar, Eugenio Gibbs spital [place] POC GLUCOSE 2023-04-08 14:38:00 Dinakar, Eugenio Shinto spital [place] TRANSFUSE RED BLOOD CELLS 2023-04-08 11:24:00 Dinakar [facility] BASIC METABOLIC PANEL 2023-04-08 11:06:00 [facility] LACTIC ACID LEVEL 2023-04-08 11:06:00 [facility] ESTIMATED GFR 2023-04-08 11:06[facility]00 [facility] 2023-04-08 09:10:00 [facility] AMMONIA LEVEL 2023-04-08 09:10:00 [facility] CBC WITH PLATELET AND 2023-04-08 09:10:00 [facility] DIFFERENTIAL PROTHROMBIN TIME WITH INR 2023-04-08 09:10:00 [facility] BASIC METABOLIC PANEL 2023-04-08 09:08:00 Dinakar [facility] HEPATIC FUNCTION PANEL 2023-04-08 09:08:00 Dinakar [facility] MAGNESIUM LEVEL 2023-04-08 09:08:00 Dinakar, [facility] PHOSPHORUS LEVEL 2023-04-08 09:08:00 Eugenio Mckeon ESTIMATED GFR 2023-04-08 09:08:00 Eugenio Mckeon HEMOGLOBIN & HEMATOCRIT 2023-04-08 06:08:00 [facility] LACTIC ACID LEVEL 2023-04-08 06:08:00 Serafin Mirza [facility] POC GLUCOSE 2023-04-08 05:12:00 Eugenio Mckeon XR CHEST 1 VW PORTABLE 2023-04-08 03:16:29 [facility] CTA ABD/PEL FOR BLEEDING 2023-04-08 03:05:20 [facility] ECG 12-LEAD 2023-04-08 02:26:23 [facility] TYPE AND SCREEN 2023-04-08 02:19:00 [facility] PREPARE RBC 2023-04-08 02:19:00 Griffin Carson stefanie Thomas PREPARE FRESH FROZEN PLASMA 2023-04-08 02:19:00 Cipriano Bush [facility] Clayton PREPARE CRYOPRECIPITATE 2023-04-08 02:19:00 Domi Newman [facility] Danita POC GLUCOSE 2023-04-08 02:12:00 Eugenio Mckeon CBC WITH PLATELET AND 2023-04-08 02:00:00 [facility] DIFFERENTIAL COMPREHENSIVE METABOLIC 2023-04-08 02:00:00 [facility] PANEL LACTIC ACID LEVEL 2023-04-08 02:00:00 [facility] MAGNESIUM LEVEL 2023-04-08 02:00:00 [facility] NT-PROBNP 2023-04-08 02:00:00 [facility] PARTIAL THROMBOPLASTIN TIME 2023-04-08 02:00:00 [facility] (PTT) PHOSPHORUS LEVEL 2023-04-08 02:00:00 [facility] PROTHROMBIN TIME WITH INR 2023-04-08 02:00:00 [facility] TROPONIN T 2023-04-08 02:00:00 [facility] ESTIMATED GFR 2023-04-08 02:00:00 [facility] CBC WITH PLATELET AND 2023-04-07 23:28:00 Dinakar, [facility] DIFFERENTIAL [facility] BASIC METABOLIC PANEL 2023-04-07 10:53:00 Dinakar, [facility] CBC WITH PLATELET AND 2023-04-07 10:53:00 Dinakar, [facility] DIFFERENTIAL [facility] HEPATIC FUNCTION PANEL 2023-04-07 10:53:00 Dinakar, [facility] MAGNESIUM LEVEL 2023-04-07 10:53:00 Dinakar [facility] Shinto [facility] PHOSPHORUS LEVEL 2023-04-07 10:53:00 Dinakar, [facility] PROTHROMBIN TIME WITH INR 2023-04-07 10:53:00 Dinakar, [facility] ESTIMATED GFR 2023-04-07 10:53:00 Dinakar [facility] PROTHROMBIN TIME WITH INR 2023-04-06 08:42:00 Néstor, [facility] Usama CBC WITH PLATELET AND 2023-04-06 08:42:00 Néstor, [facility] DIFFERENTIAL Usama COMPREHENSIVE METABOLIC 2023-04-06 08:42:00 Néstor, [facility] PANEL Usama MAGNESIUM LEVEL 2023-04-06 08:42:00 Néstor, [facility]judit [facility] PHOSPHORUS LEVEL 2023-04-06 08:42:00 Néstor, [facility] ospital [place] ESTIMATED GFR 2023-04-06 08:42:00 Néstor, [facility] COMPREHENSIVE METABOLIC 2023-04-05 10:34:00 Néstor, [facility] PANEL Usama CBC WITH PLATELET AND 2023-04-05 10:34:00 Néstor [facility] DIFFERENTIAL Usama PROTHROMBIN TIME WITH INR 2023-04-05 10:34:00 [facility] Usama ESTIMATED GFR 2023-04-05 10:34:00 NéstorMonty shaver spiliseth Borreros CBC WITH PLATELET AND 2023 20:50:00 Rogelio [facility] DIFFERENTIAL Selin TTE COMPLETE, WO CONTRAST, W 2023 16:31:[address] [facility] AGITATED SALINE ([id number]) Selin CBC WITH PLATELET AND 2023 09:35:00 Dinakar, [facility] DIFFERENTIAL [facility] PROTHROMBIN TIME WITH INR 2023 09:35:00 Dinakar, [facility] BASIC METABOLIC PANEL 2023 09:35:00 Dinakar, [facility] HEPATIC FUNCTION PANEL 2023 09:35:00 Dinakar, [facility] PHOSPHORUS LEVEL 2023 09:35:00 Dinakar, [facility] Shinto H [facility]St[facility] MAGNESIUM LEVEL 2023 09:35:00 Dinakar, Eugenio [facility] [place] ESTIMATED GFR 2023 09:35:00 Dinakar, Eugenio Shinto [facility] CBC WITH PLATELET AND 2023-04-03 09:47:00 Dinakar, [facility] DIFFERENTIAL [facility] PROTHROMBIN TIME WITH INR 2023-04-03 09:47:00 Dinakar, [facility] BASIC METABOLIC PANEL 2023-04-03 09:47:00 Dinakar, [facility] HEPATIC FUNCTION PANEL 2023-04-03 09:47:00 Dinakar, [facility] PHOSPHORUS LEVEL 2023-04-03 09:47:00 Dinakar, [facility] Shinto H [facility]spi[facility] MAGNESIUM LEVEL 2023-04-03 09:47:00 Dinakar, Eugenio [facility] [place] ESTIMATED GFR 2023-04-03 09:47:00 Dinakar, Eugenio Harrell spital [place] COVID-19 QUALITATIVE RT-PCR 2023-04-02 23:04:00 Monty Palm [facility] Usama CBC WITH PLATELET AND 2023-04-02 09:21:00 Dinakar, [facility] DIFFERENTIAL [facility] PROTHROMBIN TIME WITH INR 2023-04-02 09:21:00 Dinakar, [facility] BASIC METABOLIC PANEL 2023-04-02 09:21:00 Dinakar, [facility] HEPATIC FUNCTION PANEL 2023-04-02 09:21:00 Dinakar, [facility] PHOSPHORUS LEVEL 2023-04-02 09:21:00 Dinakar, Eugenio Shinto H [facility]spiSt[facility] MAGNESIUM LEVEL 2023-04-02 09:21:00 Dinakar, Eugenio Harrell spital [place] ESTIMATED GFR 2023-04-02 09:21:00 Dinakar, Eugenio Gibbs [facility] [place] CBC WITH PLATELET AND 2023-04-01 09:36:00 Dinakar, [facility] DIFFERENTIAL [facility] PROTHROMBIN TIME WITH INR 2023-04-01 09:36:00 Dinakar, [facility] BASIC METABOLIC PANEL 2023-04-01 09:36:00 Dinakar, [facility] HEPATIC FUNCTION PANEL 2023-04-01 09:36:00 [facility], [facility] PHOSPHORUS LEVEL 2023-04-01 09:36:00 Dinakar, [facility]enio [facility] MAGNESIUM LEVEL 2023-04-01 09:36:00 Dinakar, Eugenio [facility] [place] ESTIMATED GFR 2023-04-01 09:36:00 Dinakar, Eugenio Bernie [facility] [place] CBC WITH PLATELET AND 2023-03-31 11:24:00 Dinakar, [facility] DIFFERENTIAL [facility] PROTHROMBIN TIME WITH INR 2023-03-31 11:24:00 Dinakar, [facility] BASIC METABOLIC PANEL 2023-03-31 11:24:00 Dinakar, [facility] HEPATIC FUNCTION PANEL 2023-03-31 11:24:00 Dinakar, [facility] PHOSPHORUS LEVEL 2023-03-31 11:24:00 Dinakar, Eugenio [facility]into [facility] MAGNESIUM LEVEL 2023-03-31 11:24:00 Dinakar, Eugenio Shinto [facility] [place] ESTIMATED GFR 2023-03-31 11:24:00 Dinakar, Eugenio Shinto [facility] [place] ECG 12-LEAD 2023-03-30 23:46:06 Dinakar, Eugen[facility] CBC WITH PLATELET AND 2023-03-30 09:37:00 Dinakar, [facility] DIFFERENTIAL [facility] PROTHROMBIN TIME WITH INR 2023-03-30 09:37:00 Dinakar, [facility] BASIC METABOLIC PANEL 2023-03-30 09:37:00 Dinakar, [facility] HEPATIC FUNCTION PANEL 2023-03-30 09:37:00 Dinakar, [facility] PHOSPHORUS LEVEL 2023-03-30 09:37:00 Dinakar, Eugenio [facility] MAGNESIUM LEVEL 2023-03-30 09:37:00 Dinakar, Eugenio Shinto [facility] ESTIMATED GFR 2023-03-30 09:37:00 Dinakar, [facility] GASTROINTEST[facility]AL PATHOGENS 2023-03-29 21:08:00 Dinakar, [facility] PANEL, PCR [facility] LACTIC ACID LEVEL - NOW AND 2023-03-29 09:44:00 Berry [facility] REPEAT 2X EVERY 3 HOURS CBC WITH PLATELET AND 2023-03-29 09:44:00 Dinakar, [facility] DIFFERENTIAL [facility] PROTHROMBIN TIME WITH INR 2023-03-29 09:44:00 Dinakar, [facility] BASIC METABOLIC PANEL 2023-03-29 09:44:00 Dinakar, [facility] HEPATIC FUNCTION PANEL 2023-03-29 09:44:00 Dinakar, [facility] PHOSPHORUS LEVEL 2023-03-29 09:44:00 Ana María Mckeonh [facility]into [facility]spital [place] MAGNESIUM LEVEL 2023-03-29 09:44:00 DinEugenio reeves spiliseth Blake HEMOGLOBIN A1C 2023-03-29 09:44:00 DinEugenio reeves spiliseth [place] ESTIMATED GFR 2023-03-29 09:44:00 Eugenio Mckeon [facility] [place] RESPIRATORY PATHOGEN PANEL 2023-03-28 22:51:00 Karoline [facility] WITH COVID-19 RT-PCR [facility] BLOOD CULTURE, AEROBIC & 2023-03-28 22:36:00 Karoline [facility] ANAEROBIC [facility] LACTIC ACID LEVEL - NOW AND 2023-03-28 22:36:00 [facility] REPEAT 2X EVERY 3 HOURS BLOOD CULTURE, AEROBIC & 2023-03-28 22:26:00 Karoline [facility] ANAEROBIC [facility] URINE CULTURE 2023-03-28 20:57:00 [facility] CT RENAL STONE PROTOCOL 2023-03-28 20:53:27 [facility] URINALYSIS SCREEN AND 2023-03-28 20:32:00 [facility] MICROSCOPY, WITH REFLEX TO CULTURE CBC WITH PLATELET AND 2023-03-28 20:11:00 [facility] DIFFERENTIAL COMPREHENSIVE METABOLIC 2023-03-28 20:11:00 [facility] PANEL LACTIC ACID LEVEL - NOW AND 2023-03-28 20:11:00 [facility] REPEAT 2X EVERY 3 HOURS LIPASE LEVEL 2023-03-28 20:11:00 [facility] AMMONIA LEVEL 2023-03-28 20:11:00 [facility] ESTIMATED GFR 2023-03-28 20:11:00 [facility] [place] CRITICAL CARE ILL/INJURED 2023-03-28 19:54:52 [facility] Berry [facility] PATIENT INIT 30-74 MIN BASIC METABOLIC PANEL 2023-03-28 16:56:00 Rayne [facility] HEPATIC FUNCTION PANEL 2023-03-28 16:56:00 Rayne [facility] PROTHROMBIN TIME WITH INR 2023-03-28 16:56:00 Darielwvbill [facility] CBC WITH PLATELET AND 2023-03-28 16:56:00 Darielwvbill [facility] DIFFERENTIAL ALPHA FETOPROTEIN 2023-03-28 16:56:[address] [facility] MAGNESIUM LEVEL 2023-03-28 16:56:00 Darielwvbill Margy [facility] spital PHOSPHORUS LEVEL 2023-03-28 16:56:00 [facility] ESTIMATED GFR 2023-03-28 16:56:00 [facility] US ABDOMINAL PARACENTESIS 2023-02-26 19:25:42 Rayne [facility] IMAGING BODY FLUID CULTURE 2023-02-26 18:30:[address] [address] [facility] GRAM STAIN ONLY 2023-02-26 18:30:00 Margy Mike [facility] spital PROTEIN, MISC FLUID 2023-02-26 18:30:00 Margy Mike [facility] CELL COUNT AND DIFFERENTIAL, 2023-02-26 18:30:[address] [facility] BODY FLUID BODY FLUID CONSULT 2023-02-26 18:30:[address] [facility] FIBRINOGEN 2023-02-21 21:45:00 [facility]y [facility] BASIC METABOLIC PANEL 2023-02-21 21:45:00 [facility] WITH [facility]LET AND 2023-02-21 21:45:00 Darielwvbill [facility] DIFFERENTIAL HEPATIC FUNCTION PANEL 2023-02-21 21:45:00 Darielwvbill [facility] PROTHROMBIN TIME WITH INR 2023-02-21 21:45:00 [facility] ESTIMATED GFR 2023-02-21 21:45:00 Margy Mikeist Ho spital ESTIMATED GFR 2023-02-21 21:35:00 Malik Wheat Shinto Ho spital ESTIMATED GFR 2023-02-21 20:29:00 Margy Mike spital BASIC METABOLIC PANEL 2023-01-24 15:28:00 [facility] HEPATIC FUNCTION PANEL 2023-01-24 15:28:00 [facility] PROTHROMBIN TIME WITH INR 2023-01-24 15:28:00 [facility] PARTIAL THROMBOPLASTIN TIME 2023-01-24 15:28:00 [facility] (PTT) CBC WITH PLATELET AND 2023-01-24 15:28:00 [facility] DIFFERENTIAL ALPHA FETOPROTEIN 2023-01-24 15:28:00 [facility] CBC WITH PLATELET AND 2023-01-08 17:50:00 [facility] DIFFERENTIAL Mike HEPATIC FUNCTION PANEL 2023-01-08 17:50:00 [facility] Mike PROTHROMBIN TIME WITH INR 2023-01-08 17:50:00 [facility] Mike ALPHA FETOPROTEIN 2023-01-08 17:50:00 [facility] Mike PARTIAL THROMBOPLASTIN TIME 2023-01-08 17:50:00 [facility] (PTT) Mike BASIC METABOLIC PANEL 2023-01-08 17:50:00 [facility] Mike ESTIMATED GFR 2023-01-08 17:50:00 [facility] spital Mike CT ABDOMEN W WO CONTRAST 2023-01-08 17:07:32 Margy Mike [facility] ECG PRE/POST OP 2022-12-17 20:47:53 Marquis Whitehead [facility] CV PCI STENT 2022-12-17 19:57:05 Faith Luxist H ospiliseth [place] CV LEFT HEART CATH LV GRAM 2022-12-17 19:57:05 Faith Lux [facility] WITH CORS Rolly CV RIGHT HEART CATH 2022-12-17 19:57:05 [facility] IVUS OCT CORONARY 2022-12-17 19:57:05 Agustín [facility] ACTIVATED CLOTTING TIME 2022-12-17 19:27:00 Agustín [facility] BASIC METABOLIC PANEL 2022-12-17 17:18:00 [facility] ESTIMATED GFR 2022-12-17 17:18:00 Agustín [facility] ospital [place] CBC WITH PLATELET AND 2022-12-17 17:10:00 [facility] DIFFERENTIAL [place] PROTHROMBIN TIME WITH INR 2022-12-17 17:10:00 [facility] PRE/POST OP 2022-12-17 16:27:54 Agustín [employer] Shinto H ospital [place] CT, abdomen + pelvis, w/wo 2022-11-14 00:00:00 H [facility] contrast Urology ECG 12-LEAD 2022-11-09 20:06:22 Moni Edgar Shinto Ho spital XR CHEST 1 VW PORTABLE 2022-11-09 14:55:00 [facility] EP PACEMAKER INSERTION NEW 2022-11-09 14:22:00 [facility] OR REPLACEMENT EP PACEMAKER INSERTION NEW 2022-11-09 14:22:00 [facility] OR REPLACEMENT TYPE AND SCREEN 2022-11-09 12:09:00 Moni Edgar Shinto Ho spital ECG PRE/POST OP 2022-11-09 11:17:44 Herve [facility] Shinto Ho spital COVID-19 QUALITATIVE RT-PCR 2022-11-05 15:56:00 [facility] PROTHROMBIN TIME WITH INR 2022-11-05 15:56:00 [facility] MAGNESIUM LEVEL 2022-11-05 15:56:00 Herve [facility] Shinto Ho spital CBC WITH PLATELET AND 2022-11-05 15:56:00 [facility] DIFFERENTIAL COMPREHENSIVE METABOLIC 2022-11-05 15:56:00 [facility] PANEL ESTIMATED GFR 2022-11-05 15:56:00 Anoop Edgar spital URINE CULTURE 2022-10-06 06:35:00 [facility] URINALYSIS SCREEN AND 2022-10-06 05:54:00 [facility] MICROSCOPY, WITH REFLEX TO CULTURE CT RENAL STONE PROTOCOL 2022-10-06 05:38:39 [facility] CBC WITH PLATELET AND 2022-10-06 05:08:00 [facility] DIFFERENTIAL PROTHROMBIN TIME WITH INR 2022-10-06 05:08:00 [facility] PARTIAL THROMBOPLASTIN TIME 2022-10-06 05:08:00 [facility] ([facility]) BASIC METABOLIC PANEL 2022-10-06 05:08:[address] [facility] ESTIMATED GFR 2022-10-06 05:08:00 FrenchJaylen [facility]ital SPIROMETRY, DIFFUSION, LUNG 2022-09-12 18:41:40 [facility] VOLUMES Mike ARTERIAL BLOOD GAS, 2022-09-12 18:19:00 [facility] PULMONARY FUNC DEPT Mike US CAROTID DUPLEX BILATERAL 2022-09-12 17:30:00 [facility] Mike TTE COMPLETE, WO CONTRAST, W 2022-09-12 17:00:00 [facility] AGITATED SALINE ([id number]) Mike MRI ABDOMEN W WO CONTRAST 2022-09-12 15:55:00 [facility] Mike BONE DENSITY 2022-09-10 21:07:36 Rodriguez, [facility] spital Mike XR PANOREX 2022-09-10 20:27:25 Rodriguez [facility] spital Mike XR CHEST 2 VW 2022-09-10 20:26:57 [facility] Mike LISSETH-BEGUM VIRUS ANTIBODY 2022-09-10 18:40:00 [facility] TEST Mike NICOTINE AND COTININE, SERUM 2022-09-10 18:40:00 Rodriguez [facility] Mike BASIC METABOLIC PANEL 2022-09-10 18:40:00 Rodriguez [facility] Mike HEPATIC FUNCTION PANEL 2022-09-10 18:40:00 Rodriguez [facility] Mike LIPID PANEL 2022-09-10 18:40:00 Rodriguez, [facility] spital Mike LIPOPROTEIN (A) 2022-09-10 18:40:00 Rodriguez [facility] Ho spital Mike GGT 2022-09-10 18:40:00 Rodriguez [facility] spital Mike TOTAL IRON BINDING CAPACITY 2022-09-10 18:40:00 [facility] Mike FERRITIN LEVEL 2022-09-10 18:40:00 [facility] spital Mike MAGNESIUM LEVEL 2022-09-10 18:40:00 Rodriguez [facility] spital Mike PHOSPHORUS LEVEL 2022-09-10 18:40:00 [facility] ospital Mike VITAMIN D 25 HYDROXY LEVEL 2022-09-10 18:40:00 [facility] THYROID STIMULATING HORMONE 2022-09-10 18:40:00 [facility] Mike ANTINUCLEAR ANTIBODIES (PATRICIA) 2022-09-10 18:40:00 [facility] WITH REFLEX TO TITER AND Mike PATTERN, IMMUNOFLUORESCENCE CYTOMEGALOVIRUS AB, IGG 2022-09-10 18:40:00 [facility] Mike CYTOMEGALOVIRUS AB, IGM 2022-09-10 18:40:00 [facility] Mike HEMOGLOBIN A1C 2022-09-10 18:40:00 [facility] spital Mike HEPATITIS A ANTIBODY TOTAL 2022-09-10 18:40:00 [facility] HEPATITIS A ANTIBODY IGM 2022-09-10 18:40:[address] [facility] Mike HEPATITIS B SURFACE ANTIGEN 2022-09-10 18:40:00 [facility] Mike HEPATITIS B SURFACE ANTIBODY 2022-09-10 18:40:00 [facility] Mike HEPATITIS B CORE ANTIBODY 2022-09-10 18:40:00 [facility] TOTAL Mike HEPATITIS C ANTIBODY 2022-09-10 18:40:00 [facility] Mike HIV 1/2 ANTIGEN/ANTIBODY, 2022-09-10 18:40:00 [facility] FOURTH GENERATION, WITH Mike REFLEXES SYPHILIS TREPONEMA SCREEN 2022-09-10 18:40:00 [facility] WITH RPR CONFIRMATION Mike (REVERSE ALGORITHM) SMOOTH MUSCLE ANTIBODIES 2022-09-10 18:40:[address] [facility] WITH REFLEX TO TITER, IFA Mike CBC WITH PLATELET AND 2022-09-10 18:40:00 [facility] DIFFERENTIAL Mike PROTHROMBIN TIME WITH INR 2022-09-10 18:40:00 [facility] Mike PARTIAL THROMBOPLASTIN TIME 2022-09-10 18:40:00 [facility] (PTT) Mike ABORH - TRANSPLANT 2022-09-10 18:40:00 [facility] Mike ALCOHOL LEVEL, BLOOD 2022-09-10 18:40:00 [facility] Mike ALPHA FETOPROTEIN 2022-09-10 18:40:00 [facility] Mike CARCINOEMBRYONIC ANTIGEN 2022-09-10 18:40:[address] [facility] (CEA) Mike CANCER ANTIGEN 19-9 2022-09-10 18:40:00 [facility] Mike ALPHA-1 ANTITRYPSIN LEVEL 2022-09-10 18:40:00 [facility] Mike CERULOPLASMIN LEVEL 2022-09-10 18:40:00 [facility] Mike FIBRINOGEN 2022-09-10 18:40:00 RodriguezKristopher mar spital Mike TB T-SPOT 2022-09-10 18:40:00 RodriguezKristopher bartlett spital Mike C-REACTIVE PROTEIN 2022-09-10 18:40:00 Rodriguez, [facility] PREALBUMIN LEVEL 2022-09-10 18:40:00 RodriguezKristopher [facility] o[facility] Mike ZINC LEVEL, SERUM 2022-09-10 18:40:00 Rodriguez, [facility] PROSTATE SPECIFIC ANTIGEN 2022-09-10 18:40:00 [facility] Mike DRUG LAINEZ 9, SER/ESTUARDO, SCRN 2022-09-10 18:40:00 Rodriguez [facility] W/RFLX TO CONF Mike ESTIMATED GFR 2022-09-10 18:40:00 RodriguezKristopher maher spital Mike HLA TYPING 2022-09-10 18:40:00 RodriguezKristopher maher spital Mike SINGLE ANTIGEN BEADS 2022-09-10 18:40:00 [facility] Mike HEPATITIS C VIRUS (HCV), 2022-09-10 18:40:00 Rodriguez, [facility] QUALITATIVE Mike ECG 12-LEAD 2022-09-10 15:44:54 RodriguezKristopher [facility] Mike COVID-19 QUALITATIVE RT-PCR 2022-09-10 15:30:00 Rodriguez, [facility] Mike MRI ABDOMEN W WO CONTRAST 2022-02-05 17:46:00 Margy Mike [facility] US ABDOMEN COMPLETE 2022-01-12 16:23:40 [facility] US ABDOMINAL DOPPLER 2022-01-12 16:20:02 [facility] ALPHA FETOPROTEIN 2022-01-12 14:17:00 [facility] ANTINUCLEAR ANTIBODIES (PATRICIA) 2022-01-12 14:17:00 [facility] WITH REFLEX TO TITER AND PATTERN, IMMUNOFLUORESCENCE SMOOTH MUSCLE ANTIBODIES 2022-01-12 14:17:00 [facility] WITH REFLEX TO TITER, IFA GGT 2022-01-12 14:17:00 [facility] POC GLUCOSE 2022-01-12 13:19:00 Ahmet Lamas [facility] FIBRINOGEN 2022-01-12 10:51:00 Detandre [facility] ospital LDH 2022-01-12 10:51:00 Detz [facility] ospiva hospital BASIC METABOLIC PANEL 2022-01-12 10:51:00 [facility] CBC WITH PLATELET AND 2022-01-12 10:51:00 [facility] DIFFERENTIAL [place] MAGNESIUM LEVEL 2022-01-12 10:51:00 Burt [facility] spital [place] PHOSPHORUS LEVEL 2022-01-12 10:51:00 Burt [facility] HEPATIC FUNCTION PANEL 2022-01-12 10:51:00 [facility] ESTIMATED GFR 2022-01-12 10:51:00 [facility] POC GLUCOSE 2022-01-12 09:16:00 Cydney [facility] POC GLUCOSE 2022-01-12 00:36:00 Cydney [facility] SURGICAL PATHOLOGY REQUEST 2022-01-11 18:32:00 Cydney [facility] CBC WITH PLATELET AND 2022-01-11 17:53:00 Lila [facility] DIFFERENTIAL PROTHROMBIN TIME WITH INR 2022-01-11 17:53:00 Lila [facility] PARTIAL THROMBOPLASTIN TIME 2022-01-11 17:53:00 Lila [facility] (PTT) BASIC METABOLIC PANEL 2022-01-11 17:53:00 [facility] HE[facility] PANEL 2022-01-11 17:53:00 Detandre [facility] MAGNESIUM LEVEL 2022-01-11 17:53:00 [facility] PHOSPHORUS LEVEL 2022-01-11 17:53:[address] [facility] ACUTE VIRAL HEPATITIS PANEL 2022-01-11 17:53:00 [facility] (HAV, HBV, HCV) ESTIMATED GFR 2022-01-11 17:53:00 Cydney [facility] CELL COUNT AND DIFFERENTIAL, 2022-01-11 17:35:00 [facility] BODY FLUID ALBUMIN, [facility] FLUID 2022-01-11 17:35:00 [facility] PROTEIN, [facility] FLUID 2022-01-11 17:35:00 Cydney [facility] CYTOLOGY (NON-GYNECOLOGICAL) 2022-01-11 16:44:00 Cydney [facility] REQUEST AEROBIC CULTURE 2022-01-11 16:30:00 Cydney [facility] [employer] CULTURE 2022-01-11 16:30:00 Cydney [facility] FUNGUS CULTURE 2022-01-11 16:30:[address] [facility] FUNGUS SMEAR 2022-01-11 16:30:[address] [facility] [employer] STAIN 2022-01-11 16:30:[address] [facility] ANESTHESIA INTUBATION 2022-01-11 15:32:00 Mark Larios [facility] Auriel REPAIR, HERNIA, INGUINAL, 2022-01-11 15:22:00 Ahmet Lamas [facility] LAPAROSCOPIC, ROBOT-ASSISTED COVID-19 QUALITATIVE RT-PCR 2022-01-08 17:00:[address] [facility] XR KUB KIDNEY URETER BLADDER 2022-01-08 16:38:22 Raul Leiva [facility] XR CHEST 2 VW 2022-01-02 22:12:[address] [facility] HEMOGLOBIN A1C 2022-01-02 21:43:00 Winter Mendoza [facility] ospital TYPE AND SCREEN 2022-01-02 21:43:[address] LouisAhmet schulte [facility] COMPREHENSIVE METABOLIC 2022-01-02 21:43:00 [facility] PAN[facility] CBC WITH PLATELET AND 2022-01-02 21:43:[address] LouisAhmet schulte [facility] DIFFERENTIAL ESTIMATED GFR 2022-01-02 21:43:[address] LouisAhmet schulte Luz Maria [facility] PARTIAL THROMBOPLASTIN TIME 2022-01-02 21:43:00 [facility] (PTT) PROTHROMBIN TIME WITH INR 2022-01-02 21:43:00 [facility] ECG 12-LEAD 2022-01-02 21:27:59 [facility] XR, knee, 3 view 2021-12-21 00:00:00 Ana [facility] opedic Sports Medicine Uro.alpha- Eswl 2017-04-26 00:00:00 [facility]rology Extra Corporeal Shock Wave 2017-04-26 00:00:00 mier Qureshiro Lithotripsy (Surg) Urology CARDIO- Heart Surgery 2014-07-15 00:00:00 Iris Mendenhall (Stents) Urology Diagnostic Colonoscopy 2009-07-15 00:00:00 Saumya [facility]- Knee Surgery 1982-07-15 00:00:00 [facility]- Shoulder Surgery 1971-07-15 00:00:00 [facility] - Laser Ureteral- Stone Iris vera [facility] Orchiopexy (Daniel-echevarria) Evin maldonado [facility] Urology Plan of Care Planned Activity Planned Date Details Comments Source Future Scheduled Test 2023-05-11 [facility] 09:21:29 malignant neoplasm of colon (procedure) [code = 565969161] Future Scheduled Test 2023-05-11 [facility] 09:21:29 malignant neoplasm of colon (procedure) [code = 153064288] Future Scheduled Test 2023-05-11 [facility] 09:21:29 malignant neoplasm of colon (procedure) [code = 376377377] Future Scheduled Test 2023-05-11 SHINGLES VACCINES (1 [facility] 09:21:29 of 2) [code = SHINGLES VACCINES (1 of 2)] Future Scheduled Test 2023-05-11 HEPATITIS B VACCINES [facility] 09:21:29 (1 of 3 - Risk 3-dose series) [code = HEPATITIS B VACCINES (1 of 3 - Risk 3-dose series)] Future Scheduled Test 2023-05-11 65+ PNEUMOCOCCAL [facility] 09:21:29 VACCINE (2 - PCV) [code = 65+ PNEUMOCOCCAL VACCINE (2 - PCV)] Future Scheduled Test 2023-05-11 Screening for [facility] 09:21:29 malignant neoplasm of colon (procedure) [code = 416943179] Future Scheduled Test 2023-05-11 Screening for [facility] 09:21:29 malignant neoplasm of colon (procedure) [code = 763821674] Future Scheduled Test 2023-05-11 COVID-19 VACCINE ([address] [place] [address] 09:21:29 season) [code = COVID-19 VACCINE ( season)] Future Scheduled Test 2023-05-11 INFLUENZA VACCINE [facility] 09:21:29 (#1) [code = INFLUENZA VACCINE (#1)] Diagnostic Test 2022-11-21 urinalysis, dipstick [place] Pending 00:00:00 [code = urinalysis, Urology dipstick] Future Scheduled Test 2022-11-14 COLONOSCOPY SCREENING [facility] 11:25:23 [code = COLONOSCOPY SCREENING] Future Scheduled Test 2022-11-14 SHINGLES VACCINES (1 [facility] 11:25:23 of 2) [code = SHINGLES VACCINES (1 of 2)] Future Scheduled Test 2022-11-14 HEPATITIS B VACCINES [facility] 11:25:23 (1 of 3 - Risk 3-dose series) [code = HEPATITIS B VACCINES (1 of 3 - Risk 3-dose series)] Future Scheduled Test 2022-11-14 65+ PNEUMOCOCCAL [facility] 11:25:23 VACCINE (2 - PCV) [code = 65+ PNEUMOCOCCAL VACCINE (2 - PCV)] Future Scheduled Test 2022-11-14 COVID-19 VACCINE ([address] [place] [address] 11:25:23 Booster for Porsha series) [code = COVID-19 VACCINE (3 - Booster for Porsha series)] Future Scheduled Test 2022-11-14 INFLUENZA VACCINE [facility] 11:25:23 [code = INFLUENZA VACCINE] Future Appointment 2023-05-24 Curry Major 00:00:00 [address]; , [place] [address] Instructions Ana [facility] Sports Medicine Encounters Start End Encounter Admission Attending Care Care Encounter Source Date/Time Date/Time Type Type Clinicians Facility Department ID 2023-01-28 [facility] [id number] [place] 05:39:07 [id number] Health 2023-05-10 2023-05-10 Orders Panda, [id number] Methodi 00:00:00 00:00:00 Only Asaf [id number] [id number] Hospit a .3.035432 l .8 2023-05-03 2023-05-03 Orders Panda, 1.2.840.1 [id number] 944949 9990 Methodi 00:00:00 00:00:00 Only Asaf 11580.1.[address] 3.430.2.7 Hospit a .3.563602 l .8 2023-04-29 2023-04-29 Orders Stanley, 1.2.840.1 958501994 2100 975813 Methodi 00:00:00 00:00:00 Only Talya 12954.1.[address] 3.430.2.7 Hospit a .3.343138 l .8 2023-04-26 2023-04-26 Orders Mosqueda, 1.2.840.1 [id number] 661219 1371 Methodi 00:00:00 00:00:00 Only Asaf 47157.1.[address] 3.430.2.7 Hospit a .3.832806 l .8 2023-04-25 2023-04-25 Office Rayne, 1.2.840.1 [id number] 85440 01445 Methodi 15:30:00 15:45:00 Visit Margy Lutz.1.[address] 3.430.2.7 Hospit a .3.600793 l .8 2023-04-25 2023-04-25 Outpatient RAYNE, [facility] 708162 4327 [place] 00:00:00 00:00:00 MARGY [address] 2023-04-21 2023-04-24 [facility] Clarkin 1.2.840.1 104 847710 [id number] Methodi 21:08:00 15:33:00 Encounter Eugenio Mckeon 81457.1.[address] [facility] Newman Danita 3.430.2.7 Hospita .3.759802 l .8 2023-04-21 2023-04-24 Inpatient [facility] [id number] 58 [place] 00:00:00 00:00:00 [place] [facility] Method i DANITA st 2023-04-18 2023-04-18 Orders Panda, 1.2.840.1 [id number] 620129 5572 Methodi 00:00:00 00:00:00 Only Asaf 22621.1.[address] 3.430.2.7 Hospit a .3.462993 l .8 2023-04-16 2023-04-16 Documentat Panda, 1.2.840.1 [id number] 829 [id number] Methodi 00:00:00 00:00:00 ion Asaf 03715.1.[address] 3.430.2.7 Hospit a .3.966867 l .8 2023-03-28 2023-04-15 [facility] Berry Toscano 1.2.840.1 1040 32082 [id number] Methodi 14:35:00 14:55:00 Encounter Eugenio Mckeon 20251.1.[address] NéstorMonty 3.430.2.7 Hospita [facility] Danita Newman .3.634012 l .8 2023-04-15 2023-04-15 Telephone Medina 1.2.840.1 [id number] 714 [id number] Methodi 00:00:00 00:00:[address] 3.430.2.7 Hospit a .3.737105 l .8 2023-04-15 2023-04-15 Documentat Honey Hernandez 1.2.840.1 [id number] [id number] Methodi 00:00:00 00:00:[address] 3.430.2.7 Hospit a .3.410244 l .8 2023-03-28 2023-04-15 [facility] 287 [id number] 482 [place] 00:00:00 00:00:00 [facility] [address] 2023-04-10 2023-04-10 Documentat Mosqueda, 1.2.840.1 868802081 027 [id number] Methodi 00:00:00 00:00:00 ion Asaf 82567.1.[address] 3.430.2.7 Hospit a .3.551714 l .8 2023-04-10 2023-04-10 Documentat Mosqueda, 1.2.840.1 791858301 065 4113855 Methodi 00:00:00 00:00:00 ion Asaf 25967.1.[address] 3.430.2.7 Hospit a .3.841609 l .8 2023-04-09 2023-04-09 Documentat Mosqueda, 1.2.840.1 683667749 906 [id number] Methodi 00:00:00 00:00:00 ion Asaf 44580.1.[address] 3.430.2.7 Hospit a .3.229286 l .8 2023-04-08 2023-04-08 Anesthesia Vandana Richard ta 1.2.840.1 475010478 [id number] Methodi 15:36:00 18:21:00 Event Virgilio Hernandez 44825.1.[address] 3.430.2.7 Hospit a .3.499909 l .8 2023-04-08 2023-04-08 Documentat Mosqueda, 1.2.840.1 033546917 955 [id number] Methodi 00:00:00 00:00:00 ion Asaf 44679.1.[address] 3.430.2.7 Hospit a .3.854180 l .8 2023-03-29 2023-03-29 Documentat Panda, 1.2.840.1 282695585 090 7609983 Methodi 00:00:00 00:00:00 ion Asaf 59303.1.[address] 3.430.2.7 Hospit a .3.272043 l .8 2023-03-28 2023-03-28 Office Shyambill, 1.2.840.1 349932067 60659 87137 Methodi 13:45:00 14:00:00 Visit Margy 52231.1.[address] 3.430.2.7 Hospit a .3.664186 l .8 2023-03-28 2023-03-28 Outpatient [facility], [facility] 048255 1420 [place] 00:00:00 00:00:00 MARGY [address] 2023-03-28 2023-03-28 Outpatient [facility] 754106 6650 [place] 00:00:00 00:00:00 MARGY [address] 2023-03-26 2023-03-26 Refill Lizeth, 1.2.840.1 647526534 2100 023455 Methodi 00:00:00 00:00:[address] 3.430.2.7 Hospit a .3.447477 l .8 2023-03-21 2023-03-21 Telephone Raffy 1.2.840.1 879285124 454 0961064 Methodi 00:00:00 00:00:00 Carol Araiza 41333.1.[address] 3.430.2.7 Hospit a .3.052694 l .8 2023-03-21 2023-03-21 Orders Lizeth 1.2.840.1 119293642 2100 074802 Methodi 00:00:00 00:00:00 Only Talya 45044.1.[address] 3.430.2.7 Hospit a .3.400801 l .8 2023-03-20 2023-03-20 Telephone Stanley, 1.2.840.1 [id number] 21 [id number] Methodi 00:00:00 00:00:[address] 3.430.2.7 Hospit a .3.855646 l .8 2023-03-08 2023-03-08 Orders Duchini, 1.2.840.1 426107467 18892 35936 Methodi 00:00:00 00:00:00 Only Margy 01870.1.[address] 3.430.2.7 Hospit a .3.170651 l .8 2023-03-06 2023-03-06 Outpatient [facility] 444311 8770 [place] 00:00:00 00:00:00 GARETT [address] 2023-03-01 2023-03-01 Orders Duchibill, 1.2.840.1 712935335 82739 69288 Methodi 00:00:00 00:00:00 Only Margy 23317.1.[address] 3.430.2.7 Hospit a .3.668108 l .8 2023-02-26 2023-02-26 Hospital Ducwvbill, 1.2.840.1 641014507 2100 360813 Methodi : 23:59:00 Encounter Margy 90700.1.[address] 3.430.2.7 Hospit a .3.902464 l .8 2023-02-26 2023-02-26 Outpatient [facility] 348538 5843 [place] 00:00:00 00:00:00 MARGY [address] 2023-02-22 2023-02-22 Transcribe Duchini, 1.2.840.1 277555509 21 [id number] Methodi 00:00:00 00:00:00 Orders Margy 20167.1.[address] 3.430.2.7 Hospit a .3.191583 l .8 2023-02-22 2023-02-22 Telephone Salvador, 1.2.840.1 302521723 2100 155795 Methodi 00:00:00 00:00:[address] 3.430.2.7 Hospit a .3.126891 l .8 2023-02-21 2023-02-21 Office Ducrosana, 1.2.840.1 789944843 85286 88780 Methodi 14:45:00 15:00:00 Visit Margy 80696.1.[address] 3.430.2.7 Hospit a .3.233750 l .8 2023-02-21 2023-02-21 Telephone Pops, 1.2.840.1 744149546 2099 237667 Methodi 00:00:00 00:00:[address] 3.430.2.7 Hospit a .3.843160 l .8 2023-02-21 2023-02-21 Orders Stanley, 1.2.840.1 459555087 2099 676555 Methodi 00:00:00 00:00:00 Only Talya 38895.1.[address] 3.430.2.7 Hospit a .3.934090 l .8 2023-02-21 2023-02-21 Outpatient DUCHINI, [facility] 574502 9204 [place] 00:00:00 00:00:00 MARGY [address] 2023-02-21 2023-02-21 Outpatient DUCHINI, [facility] 350627 6323 [place] 00:00:00 00:00:00 MARGY [address] 2023-02-18 2023-02-18 Orders Lizeth, 1.2.840.1 992091790 2099 681691 Methodi 00:00:00 00:00:00 Only Talya 52041.1.[address] 3.430.2.7 Hospit a .3.090933 l .8 2023-01-29 2023-01-29 Outpatient DUCHINI, [facility] 252485 9256 [place] 00:00:00 00:00:00 MARGY [address] 2023-01-25 2023-01-25 Documentat Lon, 1.2.840.1 008884956 21 32626266 Methodi 00:00:00 00:00:00 ion Shezmine 40163.1.[address] Cruz 3.430.2.7 Hospit a .3.113732 l .8 2023-01-23 2023-01-23 Orders Lon, 1.2.840.1 160323951 75546 18567 Methodi 00:00:00 00:00:00 Only Shezmine 13380.1.[address] Cruz 3.430.2.7 Hospit a .3.780106 l .8 2023-01-23 2023-01-23 Telephone Lon, 1.2.840.1 753641313 622 5903990 Methodi 00:00:00 00:00:[address] Cruz 3.430.2.7 Hospit a .3.498079 l .8 2023-01-08 2023-01-08 Hospital Duchini, 1.2.840.1 417639001 2100 384506 Methodi 10:53:01 23:59:00 Encounter Margy 02839.1.[address] 3.430.2.7 Hospit a .3.263678 l .8 2023-01-08 2023-01-08 Orders Lon, 1.2.840.1 334908124 97838 95574 Methodi 00:00:00 00:00:00 Only Shezmine 20453.1.[address] Cruz 3.430.2.7 Hospit a .3.515561 l .8 2023-01-08 2023-01-08 Outpatient DUCHINI, [facility] [id number] 1316 [place] 00:00:00 00:00:00 MARGY [address] 2023-01-08 2023-01-08 Outpatient DUCHINI, [facility] 436907 1267 [place] 00:00:00 00:00:00 MARGY [address] 2023-01-01 2023-01-01 Documentat Lon, 1.2.840.1 106220251 21 [id number] Methodi 00:00:00 00:00:00 ion Shezmine 79852.1.[address] Cruz 3.430.2.7 Hospit a .3.092240 l .8 2023-01-01 2023-01-01 Orders Eligio, 1.2.840.1 787203076 141550 4863 Methodi 00:00:00 00:00:00 Only Alex 97298.1.[address] Doug 3.430.2.7 Hospit a .3.624896 l .8 2023-01-01 2023-01-01 Orders Lon, 1.2.840.1 525923001 84872 22425 Methodi 00:00:00 00:00:00 Only Shezmine 75198.1.[address] Cruz 3.430.2.7 Hospit a .3.867952 l .8 2023-01-01 2023-01-01 Telephone Correa, 1.2.840.1 292595636 191 7360988 Methodi 00:00:00 00:00:[address] 3.430.2.7 Hospit a .3.155717 l .8 2022-12-17 2022-12-17 [facility], 1.2.840.1 [id number] 2099 025197 Methodi 11:00:00 19:55:00 Encounter Faith 32198.1.[address] Rolly 3.430.2.7 Hospit a .3.106800 l .8 2022-12-17 2022-12-17 [facility], 1.2.840.1 627600177 37598 15745 Methodi 13:00:00 14:20:[address] Rolly 3.430.2.7 Hospit a .3.015950 l .8 2022-12-17 2022-12-17 Travel 1.2.840.1 1.2.642.754 6716 125856 Methodi 00:00:00 00:00:[address] 3.430.2.7 0.2.7.3.698 Ho spita .3.058065 084.8 l .8 2022-12-17 2022-12-17 [facility] 021 985460 7137 [place] 00:00:00 00:00:00 FAITH [address] 2022-12-14 2022-12-14 Documentat Provider, 1.2.840.1 [id number] 2 [id number] Methodi 00:00:00 00:00:00 ion Unknown 47675.1.[address] 3.430.2.7 Hospit a .3.280698 l .8 2022-11-21 2022-11-21 Outpatient Boon_M [facility] [place] [place] 2360 [place]utz 00:00:00 00:00:00 70986 [facility] 2022-11-21 2022-11-21 Outpatient Boon_M [facility] 2360 [place] 00:00:00 00:00:00 79930 [facility] 2022-11-21 2022-11-21 Cipriano [facility] - [id number] [facility] 00:00:00 00:00:00 BowillaTae MD: 65[address] [facility] [address], [place] [address] , Ph. 2022-11-14 2022-11-14 Outpatient Abbie_M [facility] [place] [place] 2360 [place] 00:00:00 00:00:00 52165 [facility] 2022-11-14 2022-11-14 Cipriano [facility] - [id number] [facility] 00:00:00 00:00:00 BowillaTae MD: 65[address] [facility] [address], [place] [address] , Ph. 2022-11-12 2022-11-12 Outpatient Abbie_M U U 2360 [place] 00:00:00 00:00:00 75820 [facility] 2022-11-09 2022-11-09 [facility] Herve, 1.2.840.1 [id number] 06444 79425 Methodi 05:55:00 15:52:00 Encounter Nadim 98194.1.[address] 3.430.2.7 Hospit a .3.118611 l .8 2022-11-09 2022-11-09 Anesthesia Renzo, 1.2.840.1 733191303 [id number] Methodi 07:48:00 09:43:00 Event Leonidas 86678.1.[address] [place] 3.430.2.7 Hos jenni .3.668217 l .8 2022-11-09 2022-11-09 Anesthesia Renzo, 1.2.840.1 [id number] Methodi 07:48:00 09:43:00 Event Leonidas 42658.1.[address] [facility] 3.430.2.7 Hos jenni .3.857907 l .8 2022-11-09 2022-11-09 Surgery Herve, 1.2.840.1 952248445 565476 9333 Methodi 07:30:00 09:00:[address] 3.430.2.7 Hospit a .3.406147 l .8 2022-11-09 2022-11-09 Surgery Herve, 1.2.840.1 921142324 513315 6765 Methodi 07:30:00 09:00:[address] 3.430.2.7 Hospit a .3.670669 l .8 2022-11-09 2022-11-09 Travel 1.2.840.1 1.2.902.994 4778 340496 Methodi 00:00:00 00:00:[address] 3.430.2.7 0.2.7.3.698 Ho spita .3.944937 084.8 l .8 2022-11-09 2022-11-09 [facility] 021 [id number] 0 Strong 00:00:00 00:00:00 Encounter NADIM [address] 2022-11-09 2022-11-09 Travel 1.2.840.1 1.2.047.154 1845 445580 Methodi 00:00:00 00:00:[address] 3.430.2.7 0.2.7.3.698 Ho spita .3.200103 084.8 l .8 2022-11-05 2022-11-05 Lab Herve, 1.2.840.1 565873238 660942 2230 Methodi 10:40:00 10:45:[address] 3.430.2.7 Hospit a .3.606031 l .8 2022-11-05 2022-11-05 Lab Herve, 1.2.840.1 990004460 896477 7768 Methodi 10:40:00 10:45:[address] 3.430.2.7 Hospit a .3.170314 l .8 2022-11-05 2022-11-05 Travel 1.2.840.1 1.2.539.826 6910 655747 Methodi 00:00:00 00:00:[address] 3.430.2.7 0.2.7.3.698 Ho spita .3.427994 084.8 l .8 2022-11-05 2022-11-05 [facility], 1.2.840.1 [id number] 2099996 Methodi 00:00:00 00:00:00 Orders Nadim 08934.1.[address] 3.430.2.7 Hospit a .3.163509 l .8 2022-11-05 2022-11-05 Travel 1.2.840.1 1.2.929.235 5217 615150 Methodi 00:00:00 00:00:[address] 3.430.2.7 0.2.7.3.698 Ho spita .3.319387 084.8 l .8 2022-11-05 2022-11-05 [facility], 1.2.840.1 152156545 2099996 Methodi 00:00:00 00:00:00 Orders Nadim 02063.1.[address] 3.430.2.7 Hospit a .3.944999 l .8 2022-10-10 2022-10-10 Telephone Luke, 1.2.840.1 847756146 2099 349409 Methodi 00:00:00 00:00:[address] 3.430.2.7 Hospit a .3.929353 l .8 2022-10-10 2022-10-10 Orders Mary Alice, 1.2.840.1 [id number] 231938 8875 Methodi 00:00:00 00:00:00 Only Malki 57870.1.[address] 3.430.2.7 Hospit a .3.997932 l .8 2022-10-10 2022-10-10 Telephone Luke, 1.2.840.1 186198740 2099 434930 Methodi 00:00:00 00:00:[address] 3.430.2.7 Hospit a .3.322044 l .8 2022-10-10 2022-10-10 Orders Mary Alice, 1.2.840.1 224857140 980376 7059 Methodi 00:00:00 00:00:00 Only Malik 62000.1.[address] 3.430.2.7 Hospit a .3.041672 l .8 2022-10-05 2022-10-06 Emergency French, 1.2.840.1 876171107 2099 693870 Methodi 22:07:00 02:00:[address] 3.430.2.7 Hospit a .3.401621 l .8 2022-10-06 2022-10-06 Travel 1.2.840.1 1.2.794.502 2964 395909 Methodi 00:00:00 00:00:[address] 3.430.2.7 0.2.7.3.698 Ho spita .3.104432 084.8 l .8 2022-10-06 2022-10-06 Travel 1.2.840.1 1.2.128.952 4296 616239 Methodi 00:00:00 00:00:[address] 3.430.2.7 0.2.7.3.698 Ho spita .3.838936 084.8 l .8 2022-10-05 2022-10-06 [facility], [facility] [id number] [place] [address] 00:00:00 00:00:[address] 2022-09-10 2022-10-02 Office Delantar, 1.2.840.1 [id number] 2099 041294 Methodi 10:30:00 09:34:33 Visit Rechel 90421.1.[address] Guinares 3.430.2.7 Hospi ta .3.627233 l .8 2022-09-10 2022-10-02 [facility], 1.2.840.1 849689117 2099 403547 Methodi 10:30:00 09:34:33 Visit Rechel 58904.1.[address] Guinares 3.430.2.7 Hospi ta .3.594678 l .8 2022-09-10 2022-09-29 Office Kristopher Frias Mike 1.2.840.1 104 747760 9964337730 Methodi 10:15:00 12:48:10 Visit KaylaLawLindapatricia Masseye 89297.1.[address] 3.430.2.7 Hospit a .3.658830 l .8 2022-09-10 2022-09-29 Office Kristopher Frias Mike 1.2.840.1 104 204491 9968905959 Methodi 10:15:00 12:48:10 Visit Victor MreidLinda Patrese 43078.1.[address] 3.430.2.7 Hospit a .3.810865 l .8 2022-09-26 2022-09-26 Orders Kayla, 1.2.840.1 [id number] 21 [id number] Methodi 00:00:00 00:00:00 Only Linda 64447.1.[address] Patrese 3.430.2.7 Hospit a .3.649336 l .8 2022-09-26 2022-09-26 Orders Kayla, 1.2.840.1 003425950 21 [id number] Methodi 00:00:00 00:00:00 Only Linda 92382.1.[address] Patrese 3.430.2.7 Hospit a .3.011118 l .8 2022-09-20 2022-09-20 Documentat Huetter, Happy 1.2.840.1 588487045 [id number] Methodi 00:00:00 00:00:[address] 3.430.2.7 Hospit a .3.566895 l .8 2022-09-20 2022-09-20 Documentat [facility] 1.2.840.1 [id number] [id number] Methodi 00:00:00 00:00:[address] 3.430.2.7 Hospit a .3.441836 l .8 2022-09-16 2022-09-16 Documentat Eligio, 1.2.840.1 086786165 259 9963550 Methodi 00:00:00 00:00:00 ion Alex 57698.1.[address] Doug 3.430.2.7 Hospit a .3.088487 l .8 2022-09-16 2022-09-16 Documentat Eligio, 1.2.840.1 416169474 471 5518162 Methodi 00:00:00 00:00:00 ion Alex 40202.1.[address] Doug 3.430.2.7 Hospit a .3.945115 l .8 2022-09-12 2022-09-12 [facility], 1.2.840.1 933127804 941 6869239 Methodi 11:37:07 23:59:00 Encounter Marsabi Mike 64541.1.[address] 3.430.2.7 Hospit a .3.804910 l .8 2022-09-12 2022-09-12 [facility], 1.2.840.1 [id number] 999 5481482 Methodi 11:37:07 23:59:00 Encounter Rafik Mike 89350.1.[address] 3.430.2.7 Hospit a .3.939622 l .8 2022-09-12 2022-09-12 [facility], 1.2.840.1 985690668 109 2658939 Methodi 10:48:52 11:36:00 Encounter Rafik Mike 21323.1.[address] 3.430.2.7 Hospit a .3.135890 l .8 2022-09-12 2022-09-12 [facility], 1.2.840.1 037983982 943 6022069 Methodi 10:48:52 11:36:00 Encounter Rafik Mike 56106.1.[address] 3.430.2.7 Hospit a .3.404233 l .8 2022-09-12 2022-09-12 [facility], 1.2.840.1 009959591 771 3604683 Methodi 10:00:00 10:47:00 Encounter Rafik Mike 16019.1.[address] 3.430.2.7 Hospit a .3.901549 l .8 2022-09-12 2022-09-12 [facility], 1.2.840.1 529665342 664 4772724 Methodi 10:00:00 10:47:00 Encounter Rafik Mike [address]3350.1.[address] 3.430.2.7 Hospit a .3.357499 l .8 2022-09-12 2022-09-12 [facility], 1.2.840.1 [id number] 497 9252781 Methodi 09:00:00 09:59:00 Encounter Rafik Mike 33498.1.[address] 3.430.2.7 Hospit a .3.119348 l .8 2022-09-12 2022-09-12 [facility], 1.2.840.1 739498455 373 4120570 Methodi 09:00:00 09:59:00 Encounter Rafik Mike [address]2658.1.[address] 3.430.2.7 Hospit a .3.982790 l .8 2022-09-12 2022-09-12 Travel 1.2.840.1 1.2.281.667 7878 232096 Methodi 00:00:00 00:00:[address] 3.430.2.7 0.2.7.3.698 Ho spita .3.077115 084.8 l .8 2022-09-12 2022-09-12 Travel 1.2.840.1 1.2.876.758 9807 597711 Methodi 00:00:00 00:00:[address] 3.430.2.7 0.2.7.3.698 Ho spita .3.412868 084.8 l .8 2022-09-10 2022-09-10 [facility], 1.2.840.1 [id number] 844 8590623 Methodi 14:04:37 23:59:00 Encounter Rafik Mike 21342.1.[address] 3.430.2.7 Hospit a .3.131558 l .8 2022-09-10 2022-09-10 [facility], 1.2.840.1 [id number] 874 2743091 Methodi 14:04:37 23:59:00 Encounter Rafik Mike 69806.1.[address] 3.430.2.7 Hospit a .3.373479 l .8 2022-09-10 2022-09-10 [facility], 1.2.840.1 [id number] 297 1905021 Methodi 14:04:04 23:59:00 Encounter Rafik Mike 80731.1.[address] 3.430.2.7 Hospit a .3.487522 l .8 2022-09-10 2022-09-10 [facility], 1.2.840.1 305304819 538 6986816 Methodi 14:04:04 23:59:00 Encounter Rafik Mike [address]808.1.[address] 3.430.2.7 Hospit a .3.521935 l .8 2022-09-10 2022-09-10 [facility], 1.2.840.1 [id number] 495 1667888 Methodi 14:03:43 14:03:43 Encounter Kristopher Mike 19331.1.[address] 3.430.2.7 Hospit a .3.260811 l .8 2022-09-10 2022-09-10 [facility], 1.2.840.1 [id number] 926 [id number] Methodi 14:03:43 14:03:43 Encounter Kristopher Mike 85746.1.[address] 3.430.2.7 Hospit a .3.402245 l .8 2022-09-10 2022-09-10 [facility], 1.2.840.1 [id number] 132 [id number] Methodi 14:00:00 14:02:00 Encounter Kristopher Mike 13193.1.[address] 3.430.2.7 Hospit a .3.783771 l .8 2022-09-10 2022-09-10 [facility], 1.2.840.1 [id number] 046 [id number] Methodi 14:00:00 14:02:00 Encounter Kristopher Mike 44039.1.[address] 3.430.2.7 Hospit a .3.613372 l .8 2022-09-10 2022-09-10 [facility]1 [id number] 209 [id number] Methodi 13:00:00 14:00:00 Work Dherlene 29728.1.[address] 3.430.2.7 Hospit a .3.575470 l .8 2022-09-10 2022-09-10 [facility].2.840[facility]1 [id number] 679 [id number] Methodi 13:00:00 14:00:00 Work Dherlene 58674.1.[address] 3.430.2.7 Hospit a .3.146589 l .8 2022-09-10 2022-09-10 Nutrition 1.2.840.1 [id number] 2099 918295 Methodi 10:00:00 11:00:[address] 3.430.2.7 Hospit a .3.332857 l .8 2022-09-10 2022-09-10 Nutrition 1.2.840.1 [id number] 2099 171639 Methodi 10:00:00 11:00:[address] 3.430.2.7 Hospit a .3.634682 l .8 2022-09-10 2022-09-10 Clinical Ulysses Randleish 1.2.840.1 [id number] [id number] Methodi 09:00:00 10:30:00 Support Natasha Toussaint 37553.1.1 952 s t 3.430.2.7 Hospit a .3.128767 l .8 2022-09-10 2022-09-10 Clinical Hermelindo Garett 1.2.840.1 8282809 [id number] Methodi 09:00:00 10:30:00 Support Natasha Toussaint 52411.1.1 952 s t 3.430.2.7 Hospit a .3.657474 l .8 2022-09-10 2022-09-10 [facility]1 [id number] 21 [id number] Methodi 00:00:00 00:00:00 ion Patricia 33693.1.[address] 3.430.2.7 Hospit a .3.109205 l .8 2022-09-10 2022-09-10 Travel 1.2.840.1 1.2.904.771 6378 964566 Methodi 00:00:00 00:00:[address] 3.430.2.7 0.2.7.3.698 Ho spita .3.850141 084.8 l .8 2022-09-10 2022-09-10 Documentat [facility], 1.2.840.1 [id number] 21 [id number] Methodi 00:00:00 00:00:00 ion Patricia 17640.1.[address] 3.430.2.7 Hospit a .3.377942 l .8 2022-09-10 2022-09-10 Travel 1.2.840.1 1.2.349.809 3319 145704 Methodi 00:00:00 00:00:[address] 3.430.2.7 0.2.7.3.698 Ho spita .3.596296 084.8 l .8 2022-09-10 2022-09-10 Outpatient [facility] [address]06 [address]13 [place] 00:00:00 00:00:[address] 2022-09-10 2022-09-10 Outpatient [facility] 80597 40359 [place] 00:00:00 00:00:[address] 2022-09-08 2022-09-08 Travel 1.2.840.1 1.2.375.684 1538 918601 Methodi 00:00:00 00:00:[address] 3.430.2.7 0.2.7.3.698 Ho spita .3.262096 084.8 l .8 2022-09-08 2022-09-08 Travel 1.2.840.1 1.2.276.807 2950 200889 Methodi 00:00:00 00:00:[address] 3.430.2.7 0.2.7.3.698 Ho spita .3.636768 084.8 l .8 2022-09-06 2022-09-06 Orders Eligio, 1.2.840.1 [id number] 766548 5924 Methodi 00:00:00 00:00:00 Only Alex 46100.1.[address] Doug 3.430.2.7 Hospit a .3.044744 l .8 2022-09-06 2022-09-06 Orders Eligio, 1.2.840.1 [id number] 360737 0666 Methodi 00:00:00 00:00:00 Only Alex 90051.1.[address] Doug 3.430.2.7 Hospit a .3.144333 l .8 2022-08-07 2022-08-07 Orders Eligio, 1.2.840.1 100039253 900541 1609 Methodi 00:00:00 00:00:00 Only Alex 31639.1.[address] Doug 3.430.2.7 Hospit a .3.519889 l .8 2022-08-07 2022-08-07 Orders Eligio, 1.2.840.1 [id number] 190836 5815 Methodi 00:00:00 00:00:00 Only Alex 66337.1.[address] Doug 3.430.2.7 Hospit a .3.067082 l .8 2022-07-13 2022-07-13 Telephone Michael, 1.2.840.1 [id number] 203 [id number] Methodi 00:00:00 00:00:[address] 3.430.2.7 Hospit a .3.612802 l .8 2022-07-13 2022-07-13 Telephone Michael, 1.2.840.1 [id number] 847 [id number] Methodi 00:00:00 00:00:[address] 3.430.2.7 Hospit a .3.600016 l .8 2022-07-05 2022-07-05 Telephone Pops, 1.2.840.1 [id number] 2099 607742 Methodi 00:00:00 00:00:[address] 3.430.2.7 Hospit a .3.766614 l .8 2022-07-05 2022-07-05 Telephone Pops, 1.2.840.1 [id number] 2099 547150 Methodi 00:00:00 00:00:[address] 3.430.2.7 Hospit a .3.928815 l .8 2022-04-20 2022-04-20 Outpatient AbbieJose Juan [facility] [address] [place] 00:00:00 00:00:00 [address]47[address] [facility] 2022-04-18 2022-04-18 Outpatient [facility] [address] [place] 00:00:00 00:00:00 [facility] 2022-04-09 2022-04-09 Outpatient [facility] [address] [place] 00:00:00 00:00:00 47027 [facility] 2022-03-31 2022-03-31 Outpatient [facility] [address] [place] 00:00:00 00:00:00 42582 [facility] 2022-02-23 2022-02-23 Outpatient [facility] [address] [place] 00:00:00 00:00:00 92329 [facility] 2022-02-05 2022-02-[address] [facility], 1.2.840.1 [id number] 2100 939779 Methodi 10:54:52 23:59:00 Encounter Margy 88777.1.[address] 3.430.2.7 Hospit a .3.713354 l .8 2022-02-05 2022-02-05 Travel 1.2.840.1 1.2.257.138 2957 217986 Methodi 00:00:00 00:00:[address] 3.430.2.7 0.2.7.3.698 [facility]3.798146 084.8 l .8 2022-01-29 2022-01-29 Office [facility], 1.2.840.9 [id number] 54003 90376 Methodi 14:15:00 16:20:40 Visit Ahmet Herrera 99596.1.1 412 [address] t 3.430.2.7 Hospit a .3.055856 l .8 2022-01-29 2022-01-29 Travel 1.2.840.1 1.2.288.203 7111 842369 Methodi 00:00:00 00:00:[address] 3.430.2.7 0.2.7.3.698 lavonneta .3.056219 084.8 l .8 2022-01-26 2022-01-26 [facility] Rayne, 1.2.840.1 [id number] 908 [id number] Methodi 00:00:00 00:00:00 George Aguilar 87940.1.[address] 3.430.2.7 Hospit a .3.929357 l .8 2022-01-24 2022-01-24 Outpatient FOG_Elkousy [facility] AO 629 7244-20 Ana 05:16:00 05:16:00 _Mayte 626947 [facility] 2022-01-20 2022-01-20 Outpatient Reny [facility] [address] [place] 04:00:00 04:00:00 51617 [facility] 2022-01-11 2022-01-12 [facility], 1.2.840.1 [id number] 60087 05599 Methodi 08:08:00 14:35:00 Encounter Ahmet Herrera 26334.1.[address] 3.430.2.7 Hospit a .3.923817 l .8 2022-01-12 2022-01-12 Outpatient Reny [facility] [address] [place] 07:10:00 07:10:00 20825 [facility] 2022-01-12 2022-01-12 Documentat Felix, 1.2.840.1 [id number] Methodi 00:00:00 00:00:[address] 3.430.2.7 Hospit a .3.768520 l .8 2022-01-11 2022-01-11 [facility] 1.2.840.1 [id number] Methodi 10:30:00 13:30:00 Ahmet Herrera 58014.1.1 458 s t 3.430.2.7 Hospit a .3.387351 l .8 2022-01-11 2022-01-11 Anesthesia Rolan Leal 1.2.840.1 [id number] Methodi 10:22:00 12:19:00 Event Winter Mendoza 51344.1.[address] 3.430.2.7 Hospit a .3.970380 l .8 2022-01-11 2022-01-11 Travel 1.2.840.1 1.2.493.703 3471 [id number] Methodi 00:00:00 00:00:[address] 3.430.2.7 0.2.7.3.698 Ho spita .3.251335 084.8 l .8 2022-01-10 2022-01-10 Telephone Alves, 1.2.840.8 [id number] 21 [id number] Methodi 00:00:00 00:00:[address] 3.430.2.7 Hospit a .3.931439 l .8 2022-01-08 2022-01-08 [facility], 1.2.840.1 [id number] 697 [id number] Methodi 11:24:53 23:59:00 Encounter Cipriano 93472.1.[address] 3.430.2.7 Hospit a .3.891743 l .8 2022-01-08 2022-01-08 Pre-Admiss [facility], 1.2.840.1 [id number] Methodi 13:00:00 14:00:00 gabriele Herrera 98167.1.1 389 s t Testing 3.430.2.7 Hospit a .3.568561 l .8 2022-01-08 2022-01-08 Outpatient Abbie_[facility] [address] 11:35:00 11:35:00 [facility] 2022-01-02 2022-01-08 Pre-Admiss [facility], 1.2.840.1 [id number] Methodi 16:40:00 00:05:25 gabriele Herrera 90104.1.1 441 s t Testing 3.430.2.7 Hospit a .3.157691 l .8 2022-01-08 2022-01-08 Travel 1.2.840.1 1.2.496.165 8421 [id number] Methodi 00:00:00 00:00:[address] 3.430.2.7 0.2.7.3.698 Ho spita .3.178515 084.8 l .8 2022-01-08 2022-01-08 Transcribe Chudinora, 1.2.840.1 [id number] 2 [id number] Methodi 00:00:00 00:00:00 Orders Cipriano 57406.1.[address] 3.430.2.7 Hospit a .3.953216 l .8 2022-01-02 2022-01-02 Hospital [facility], 1.2.840.1 [id number] 88626 21487 Methodi 16:15:00 23:59:00 Encounter Ahmet Herrera 49063.1.[address] 3.430.2.7 Hospit a .3.986257 l .8 2022-01-02 2022-01-02 Travel 1.2.840.1 1.2.889.929 2334 [id number] Methodi 00:00:00 00:00:[address] 3.430.2.7 0.2.7.3.698 Ho spita .3.283717 084.8 l .8 2021-12-21 2021-12-21 Outpatient FOG_[place] AOSM AOSM 629 7244-20 Ana 12:22:00 12:22:00 _Richard_ [id number] Orth ope dic [facility] Medicin e 2021-12-21 2021-12-21 Outpatient [place], AOSM AOSM 2648fd e8-e 00:00:00 00:00:00 Darion Eubanks 810-11ec-a [id number]-593e1c ce2b70 2021-12-21 2021-12-21 Darion Eubanks AOSM [place] - Ortho 56291 609 Ana 00:00:00 00:00:00 Jenny Dykes MD: 7401 FOG_Ofc dic [facility] [place] [address] , Ph. [id number] 2021-12-05 2021-12-05 Orders Long, 1.2.840.8 [id number] 2100 [id number] Methodi 00:00:00 00:00:00 Only Rajani 86251.1.[address] 3.430.2.7 Hospit a .3.008723 l .8 2021-11-27 2021-11-27 Office Cydney, 1.2.840.5 [id number] 11580 Methodi 14:15:00 16:49:07 Visit Ahmet Herrera 29466.1.1 054 s t 3.430.2.7 Hospit a .3.194399 l .8 2021-11-27 2021-11-27 Travel 1.2.840.1 1.2.788.055 6057 [id number] Methodi 00:00:00 00:00:[address] 3.430.2.7 0.2.7.3.698 Ho spita .3.849367 084.8 l .8 2021-11-14 2021-11-14 Travel 1.2.840.1 1.2.232.163 1870 238671 Methodi 00:00:00 00:00:[address] 3.430.2.7 0.2.7.3.698 Ho spita .3.615628 084.8 l .8 2021-06-26 2021-06-26 Outpatient Chudinoraon_M [facility] [address] 02:32:00 02:32:00 02882 [facility] 2021-05-24 2021-05-24 Outpatient Boon_M [facility] [address] 01:13:00 01:13:00 87746 [facility] 2021-05-16 2021-05-16 [id number] [address] 00:00:00 00:00:00 AHMET Joshua [facility] 2021-05-09 2021-05-09 Outpatient Lewitton_M [facility] [address] 09:50:00 09:50:00 03230 [facility] 2021-05-08 2021-05-08 Outpatient [place]on_M [facility] [address] 02:41:00 02:41:00 77336 [facility] 2021-05-08 2021-05-08 Outpatient RIMMA Leiva [facility] 06a58 38e-3 00:00:00 00:00:00 Cipriano 0g0-62fb-c [id number] 2a77e8 2021-05-08 2021-05-08 Cipriano U [place] - [id number] H imer 00:00:00 00:00:00 Tae Leiva MD: 6560 [facility] [place] [id number] [facility], [place] [address] , Ph. 2021-05-04 2021-05-04 Outpatient [place]on_M [facility] [address] 12:43:00 12:43:00 22582 [facility] 2021-04-28 2021-04-28 Outpatient [place]on_M [facility] [address] 02:17:00 02:17:00 36516 [facility] 2021-04-27 2021-04-27 Outpatient [place]on_M [facility] [address] 05:54:00 05:54:00 47101 [facility] 2021-04-25 2021-04-25 Outpatient [place]on_M [facility] [address] 02:01:00 02:01:00 48551 [facility] 2021-04-19 2021-04-19 Outpatient [place]on_M [facility] [address] 02:49:00 02:49:00 25917 [facility] 2021-04-19 2021-04-19 Outpatient JaysonJuaquin [facility] a9c2 2a50-2 00:00:00 00:00:00 Long Howard 7f7-56mg-0 g0d-et6n96 d01e3e 2021-04-19 2021-04-19 Juaquin Alves [facility] [place] [place] - [id number] 00:00:00 00:00:00 Anita Tyler MD: [place] [facility] [address] [facility] [place], [place] [address] , Ph. 2020-11-15 2020-11-15 Outpatient Reny [facility] [address] 03:33:00 03:33:00 35284 [facility] Results Test Description Test Time Test Comments Results Result Comments Source Basic metabolic panel 2023-05-11 08:21:00 Test Item Value Reference Range Interpretation Comme nts Glucose (test code = 142 mg/dL 65-139 H Non-fa sting reference 2345-7) interval BUN (test code = 3094-0) 10 mg/dL 7-25 Creatinine (test code = 0.87 mg/dL 0.70-1.35 2160-0) eGFR (test code = 66958-4) 95 See_Comment [Automated message] The system MD2U generated this result transmitted ref erence range: > OR = 6 0 mL/min/1.73m2. The reference range was not used to int erpret this result as normal/abnormal . BUN/creatinine ratio (test SEE NOTE: See_Comment Not Reported: BUN and code = 3097-3) Creatinine ar e within reference range . [Automated mess age] The system MD2U generated this result transmitted ref erence range: 6 - 22 ( calc). The reference r linda was not used to interpret this result as normal/abnor mal. Sodium (test code = 138 mmol/L 639-077 6728-2) Potassium (test code = 3.8 mmol/L 3.5-5.3 2823-3) Chloride (test code = 101 mmol/L 98-110 2075-0) CO2 (test code = 2027-9) 30 mmol/L 20-32 Calcium (test code = 9.3 mg/dL 8.6-10.3 74892-7) ISAIAH (test code = ISAIAH) FASTING:NO FASTING: NO RAC (test code = RAC) Performing Organization Information: Site ID: AILYN [email or web address] Lab Address: [address] [place] [id number] Director: Olga Mccabe Lab Interpretation (test Abnormal code = 83050-8) [facility] Antonio[facility] function [id number] 08:21:00 Test Item Value Reference Range Interpretation Comments Protein (test code = 7.4 g/dL 6.1-8.1 2885-2) Albumin (test code = 3.3 g/dL 3.6-5.1 L 7) Globulin, total 4.1 See_Comment H [Automated (test code = message] The ) system which generated this result transmitted reference range : 1.9 - 3.7 g/dL (calc). The reference range was not used to interpret this result as normal/abnormal . Albumin/globulin 0.8 See_Comment L [Automated ratio (test code = message] The ) system which generated this result transmitted reference range : 1.0 - 2.5 (calc ). The reference range was not used to interpr et this result as normal/abnormal . Total bilirubin 3.5 mg/dL 0.2-1.2 H (test code = 1974-08) Bilirubin direct 1.3 mg/dL See_Comment H [Automated (test code = 1968-01) message ] The system which generated this result transmitted reference range : < OR = 0.2. The reference range was not used to interpret this result as normal/abnormal . Bilirubin, indirect 2.2 See_Comment H [Automa fermín (test code = 1970-07) message ] The system which generated this result transmitted reference range : 0.2 - 1.2 mg/dL (calc). The reference range was not used to interpret this result as normal/abnormal . Alkaline phosphatase 209 U/L 35-144 H (test code = 6768-6) AST (test code = 62 U/L 10-35 H 1920-8) ALT (test code = 37 U/L 9-46 1742-6) ISAIAH (test code = FASTING:NO ISAIAH) FASTING: NO RAC (test code = Performing RAC) Organization Information: Site ID: ARDIANAA [facility] Address: [address] [place] [address] Director: Olga Mccabe Lab Interpretation Abnormal (test code = 64851-9) [facility] with platelet and njmfwvgnbzyq2497-92-68 08:21:00 Test Item Value Reference Range Interpretation Comments WBC (test code = 6.0 See_Comment [Automated 6690-2) message] The system which generated this result transmitted reference range : 3.8 - 10.8 Thousand/uL. Th e reference range was not used to interpret this result as normal/abnormal . RBC (test code = 3.79 See_Comment L [Automated 789-8) message] The system which generated this result transmitted reference range : 4.20 - 5.80 Million/uL. The reference range was not used to interpret this result as normal/abnormal . HGB (test code = 11.7 g/dL 13.2-17.1 L 718-7) HCT (test code = 33.7 % 38.5-50.0 L 4544-3) MCV (test code = 88.9 fL 80.0-100.0 787-2) MCH (test code = 30.9 pg 27.0-33.0 785-6) MCHC (test code = 34.7 g/dL 32.0-36.0 786-4) RDW (test code = 15.6 % 11.0-15.0 H 788-0) Platelet count (test 114 See_Comment L [Autom ated code = 777-3) message] The system which generated this result transmitted reference range : 140 - 400 Thousand/uL. Th e reference range was not used to interpret this result as normal/abnormal . MPV (test code = 11.8 fL 7.5-12.5 776-5) Neutrophils, 3810 See_Comment [Automated absolute (test code message] The = 751-8) system which generated this result transmitted reference range : 1,500 - 7,800 cells/uL. The reference range was not used to interpret this result as normal/abnormal . Lymphocytes, 1224 See_Comment [Automated absolute (test code message] The = 731-0) system which generated this result transmitted reference range : 850 - 3,900 cells/uL. The reference range was not used to interpret this result as normal/abnormal . Monocytes, absolute 654 See_Comment [Automa fermín (test code = 742-7) message] The system which generated this result transmitted reference range : 200 - 950 cells/uL. The reference range was not used to interpret this result as normal/abnormal . Eosinophils, 240 See_Comment [Automated absolute (test code message] The = 711-2) system which generated this result transmitted reference range : 15 - 500 cells/uL. The reference range was not used to interpret this result as normal/abnormal . Basophils, absolute 72 See_Comment [Automa fermín (test code = 704-7) message] The system which generated this result transmitted reference range : 0 - 200 cells/u L. The reference range was not used to interpr et this result as normal/abnormal . Neutrophils (test 63.5 % code = 770-8) Lymphocytes (test 20.4 % code = 736-9) Monocytes (test code 10.9 % = 5905-5) Eosinophils (test 4.0 % code = 713-8) Basophils + RC (test 1.2 % code = 706-2) ISAIAH (test code = FASTING:NO ISAIAH) FASTING: NO RAC (test code = Performing RAC) Organization Information: Site ID: RGA Name: [facility] Lab Address: [address] [place] [address] Director: Olga Mccabe Lab Interpretation Abnormal (test code = 37737-9) [facility] AntonioProthrombin time with [id number] 08:21:00 Test Item Value Reference Range Interpretation Comments INR (test code = 1.6 H Reference R linda 6301-6) 0.9-1.1Moderate -i ntensity Warfar in Therapy 2.0-3.0Higher-i nt ensity Warfarin Therapy 3.0-4.0 Prothrombin time 16.1 See_Comment H For additio nal (test code = 5902-2) informa tion, please refer tohttp://educat io n.questdiagnost [facility]/faq/FAQ10 4( This link is being provided for informational/e du cational purpos es only.) [Automat ed message] The system which generated this result transmitted reference range : 9.0 - 11.5 sec. The reference range was not used to interpr et this result as normal/abnormal . ISAIAH (test code = FASTING:NO ISAIAH) FASTING: NO RAC (test code = Performing RAC) Organization Information: Site ID: RGA Name: [facility] Lab Address: [address] [place] [address] Director: Olga Mccabe Lab Interpretation Abnormal (test code = 93879-0) [facility] Antonio[facility]rine [id number] 03:42:00 Test Item Value Reference Range Interpretation Comments Urine culture (test SEE COMMENT Bacteriu guero screen code = 7984242) negative. [facility] AntonioInfluenza virus A and B [id number] 00:01:44 Test Item Value Reference Range Interpretation Comments SARS-CoV-2 (COVID-19) RNA [Presence] Detected in Respiratory specimen by CRYSTAL with probe detection (test code = 78959-1) Whether patient resides in a No congregate care setting (test code = 34569-3) Date and time of symptom onset (test Unknown code = 61513-2) Whether the patient was hospitalized No for condition of interest (test code = 35231-3) Whether the patient was admitted to No intensive care unit (ICU) for condition of interest (test code = 59999-8) Whether patient is employed in a No healthcare setting (test code = 45302-8) Whether the patient has symptoms No related to condition of interest (test code = 27987-0) status (test code = No 86697-3) [facility] [id number] 04:33:00 Test Item Value Reference Range Interpretation Comments POC glucose (test code 138 mg/dL 65-99 H Opera tor Name: Asaolu = 62940-0) AbiodunDevice I D: [id number] able: [facility] Notified contact center representative Interpretation Abnormal (test code = 22059-4) [facility] Antonio[facility]are RBC, 1 [id number] 14:31:00 Test Item Value Reference Range Interpretation Comments Product name (test code Red Cells AS1 Leukored = 25) Irrad Unit number (test code [id number] = 7347394) Product code (test code X8263N96 = 3092) Dispense status (test Transfused code = 24) Blood expiration date (test code = 302) Blood type code (test 5100 code = 308) Blood type (test code = O POSITIVE 1314) Compatibility (test Compatible code = 6400) ISAIAH (test code = ISAIAH) [facility] cryoprecipitate, 10 [id number] 20:50:00 Test Item Value Reference Range Interpretation Comments Product name (test Pooled Cryoprecipitate code = 25) Thawed Unit number (test code [id number] = 7967302) Product code (test Z5086P19 code = 3092) Dispense status (test Transfused code = 24) Blood expiration date (test code = 302) Blood type code (test 6200 code = 308) Blood type (test code A POSITIVE = 1314) Compatibility (test Not required code = 6400) [facility] fresh frozen plasma, 1 [id number] 20:34:00 Test Item Value Reference Range Interpretation Comments Product name (test code = 25) Thawed Plasma Unit number (test code = [id number] 7821315) Product code (test code = 3092) [id number] Dispense status (test code = Transfused 24) Blood expiration date (test code = 302) Blood type code (test code = 6200 308) Blood type (test code = 1314) A POSITIVE Compatibility (test code = Not required 6400) [facility] 12 [id number] 13:16:14 Test Item Value Reference Range Interpretation Comments Ventricular rate (test 77 code = 253) Atrial rate (test code = 77 255) FL interval (test code = 162 266) QRSD interval (test code 120 = 260) QT interval (test code = 446 264) QTC interval (test code 504 = 265) P axis 1 (test code = -53 267) QRS axis 1 (test code = 18 268) T wave axis (test code = 29 270) EKG impression (test Unusual P axis, code = 273) possible ectopic atrial rhythm-Low voltage QRS-Right bundle branch block-Abnormal [facility] RNA [Presence] in Respiratory specimen by CRYSTAL with probe [id number] 21:39:34 Test Item Value Reference Range Interpretation Comments SARS-CoV-2 (COVID-19) RNA Not detected [Presence] in Respiratory specimen by CRYSTAL with probe detection (test code = 49800-0) Whether patient is employed in a Unknown healthcare setting (test code = 83473-7) Whether the patient has symptoms Unknown related to condition of interest (test code = 03603-9) Whether the patient was Unknown hospitalized for condition of interest (test code = 33882-6) Whether the patient was admitted Unknown to intensive care unit (ICU) for condition of interest (test code = 03982-0) Whether patient resides in a Unknown congregate care setting (test code = 58466-3) status (test code = Unknown 99231-8) Date and time of symptom onset Unknown (test code = 83960-6) [facility] WESTCell count and differential, body [id number] 16:14:00 Test Item Value Reference Range Interpretation Comments Misc fluid type (test Ascitic code = 81937-3) Color, fluid (test Pale yellow code = 6824-7) Appearance, fluid Hazy (test code = 9335-1) RBC, fluid (test code SEE COMMENT See_Comment 2+ (50 0 - 10,000 = 33763-4) RBC/CMM) [Autom ated message] The sy stem which generated this result transmit fermín reference range : /CMM. The refer ence range was not u sed to interpret this result as normal/abnor mal. Nucleated cells, 452 See_Comment [Automated message] fluid (test code = The syste m which 59506-3) generated this result transmitted ref erence range: /CMM. Th e reference range was not used to int erpret this result as normal/abnormal . Fluid mononuclear See Diff cell (test code = 1407) Neutrophils, fluid 20 % Reviewed by Eriberto (test code = 19918-1) Torrey parada M.D. Lymphocytes, fluid 4 % (test code = 48594-8) Mesothelial cells, 51 % fluid (test code = 98912-4) Macrophages, fluid 23 % (test code = 32821-2) Plasma cells, fluid 2 % (test code = 90012-0) [facility] CenterBody fluid [id number] 16:14:00 Test Item Value Reference Range Interpretation Comments Body fluid consult Done Reactive mesothelial cells (test code = 987) and mixed inflammation.Re viewed by Eriberto Nunez M.D. [facility] AntonioGram stain [id number] 10:47:00 Test Item Value Reference Range Interpretation Comments Gram stain No WBC's or Specimen result (test organisms seen InformationSp ecimen code = 664-3) Source: Ascite s FluidSpecimen S ite: Not otherwise speci fied [facility] AntonioProtein, misc [id number] 00:44:00 Test Item Value Reference Range Interpretation Comments Fluid type (test Ascitic code = 77875-9) Protein, fluid 1.0 g/dL The reference interval(s) (test code = and other metho d 2881-1) performance spe cifications have not been e stablished for this body f luid. The test results mu st be integrated into the clinical contex t for interpretation. This test has been modifi ed from the record keeper?s instructions. T he performance bere racteristics were determined by [facility] in a manner consiste nt with CLIA requirements. T his test has not been cleare d or approved by the U.S. Food and Drug Admini stration. [facility] AntonioECG Pre/Post Op (in AM)2022-12-18 01:20:24 Test Item Value Reference Range Interpretation Comments Ventricular rate (test 50 code = 253) Atrial rate (test code 50 = 255) FL interval (test code 198 = 266) QRSD interval (test 134 code = 260) QT interval (test code 502 = 264) QTC interval (test code 457 = 265) QRS axis 1 (test code = 36 268) T wave axis (test code 49 = 270) EKG impression (test Atrial-paced code = 273) rhythm-Right bundle branch block-Abnormal ECG-In automated comparison with ECG of 17-DEC-2022 11:27,-No significant change was found- [facility] AntonioActivated clotting [id number] 19:34:00 Test Item Value Reference Range Interpretation Comments Activated clotting time 468 See_Comment H Oper ator Name: (test code = 5298) Dani Appiah ID: [id number] [Automated mess age] The system MD2U generated this result transmitted ref erence range: 96 - 152 sec. The reference r linda was not used to interpret this result as normal/abnor mal. Lab Interpretation (test Abnormal code = 43018-8) [facility]Urinalysis macro (dipstick) panel - [id number] 12:55:00 Test Item Value Reference Range Interpretation Comments leukocytes (test code negative neg = leukocytes) urobilinogen (test 0.2 E.U./dL sm amt (.5-1mg/dL) code = urobilinogen) protein (test code = negative See_Comment [Autom ated protein) message] The sy stem which generated this result transmitted reference range : <=150 mg/d. The reference range was not used to interpret this result as normal/abnormal . pH (test code = pH) 6.5 4.5-8 blood (test code = negative See_Comment [Automat ed blood) message] The sy stem which generated this result transmitted reference range : <=3 RBC. The reference range was not used to interpret this result as normal/abnormal . specific gravity 1.015 1.005-1.025 (test code = specific gravity) ketone (test code = negative none ketone) bilirubin (test code negative neg = bilirubin) glucose (test code = negative See_Comment [Autom ated glucose) message] The sy stem which generated this result transmitted reference range : <=130 mg/d. The reference range was not used to interpret this result as normal/abnormal . color (test code = yellow yellow color) clarity (test code = clear clear or cloudy clarity) nitrite (test code = negative neg nitrite) [facility] UrologyCytology report of Specimen Cyto [id number] 00:00:00 Non-oxygen therapy teacher [facility]ologySt. [facility] UrologyECG 12 [id number] 23:26:24 Test Item Value Reference Range Interpretation Comments Ventricular rate (test 50 code = 253) Atrial rate (test code 50 = 255) FL interval (test code 198 = 266) QRSD interval (test 134 code = 260) QT interval (test code 484 = 264) QTC interval (test code 441 = 265) P axis 1 (test code = 83 267) QRS axis 1 (test code = 12 268) T wave axis (test code 35 = 270) EKG impression (test Atrial-paced code = 273) rhythm-Right bundle branch block-Abnormal ECG-In automated comparison with ECG of 09-NOV-2022 06:17,-Electronic atrial pacemaker has replaced Sinus rhythm- [facility] AntonioEC Pre/Post [id number] 20:18:45 Test Item Value Reference Range Interpretation Comments Ventricular rate (test 56 code = 253) Atrial rate (test code 56 = 255) FL interval (test code 200 = 266) QRSD interval (test 134 code = 260) QT interval (test code 498 = 264) QTC interval (test code 480 = 265) P axis 1 (test code = -4 267) QRS axis 1 (test code = 24 268) T wave axis (test code 36 = 270) EKG impression (test Sinus code = 273) bradycardia-Right bundle branch block-Abnormal ECG-In automated comparison with ECG of 10-SEP-2022 09:44,-No significant change was found- [facility] AntonioCOVID-19 qualitative [id number] 19:52:48 Test Item Value Reference Interpretation Comments Range Interpretation Negative results do (test code = not preclude COVID-19 7472040) infection and should not be used asthe sole basis for treatment or other patient management decisions. Negativeresults must be combined with clinical observations, patient history, andepidemiological information. COVID-19 Not-Detected Not-Detected DISCLAIMER:This qualitative RT-PCR test was result (test code performed using = 99744-0) the [employer] SARS-CoV-2 Assa y ([employer]). This assay is available for i n vitro diagnosti c use under Food and Drug Administration (FDA) Emergency Use Authorizati on (EUA) and has been verified f or clinical use by the [facility]. Information on the FDA policy for diagnostic tests for coronavirus disease- 2019 i s available at:https://www. fd a.gov/medical-d ev ices/emergency- si tuations-medica l- devices/faqs-di ag nostic-testing- sa rs-cov-2It is critical that health care providers and patients review the applicable fact sheet(s) i n interpreting or understanding t he test results th at are available upon request.RADHAO ROSSY GY:This assay utilizes reagen ts for nucleic aci d extraction, amplification, and real-time reverse drafter electromechanical polymerase reji n reaction. COVID-19 See link below for PDF Case Number: qualitative RT-PCR Lab Report [id number] PDF (test code = 7070) Bernie StatonARS-CoV-2 (COVID-19) RNA [Presence] in Respiratory specimen by CRYSTAL with probe [id number] 14:52:48 Test Item Value Reference Range Interpretation Comments SARS-CoV-2 (COVID-19) RNA Not detected [Presence] in Respiratory specimen by CRYSTAL with probe detection (test code = 22361-1) Whether patient is employed in a Unknown healthcare setting (test code = 11253-6) Whether the patient has symptoms Unknown related to condition of interest (test code = 10936-9) Whether the patient was Unknown hospitalized for condition of interest (test code = 71779-2) Whether the patient was admitted Unknown to intensive care unit (ICU) for condition of interest (test code = 85402-1) Whether patient resides in a Unknown congregate care setting (test code = 87280-0) status (test code = Unknown 80720-1) Date and time of symptom onset Unknown (test code = 10191-6) TAE GIBBS WESTUrine [id number] 21:14:00 Test Item Value Reference Range Interpretation Comments Urine culture growth after Specimen isolate (test 24 hours InformationSpe [facility] 43141-2) Source: Urin eSpecimen Site: Clean cat [facility], [facility], lung [id number] 18:41:40 Test Item Value Reference Range Interpretation Comments VC Pre (test code = 4.33 L 5374) VC Predicted (test 4.79 code = 5372) VC LLN (test code = 3.81 5373) VC % Pre of Predicted 90.5 % (test code = 5375) TLC Pre (test code = 7.87 L 5416) TLC Predicted (test 7.18 code = 5414) TLC LLN (test code = 5.71 5415) TLC % Pre of Predicted 109.7 % (test code = 5417) RV Pre (test code = 3.54 L 5402) RV Predicted (test 2.42 code = 5400) RV LLN (test code = 1.47 5401) RV % Pre of Predicted 146.2 % (test code = 5403) RV % TLC Pre (test 44.95 % code = 5409) RV % TLC Predicted 33 (test code = 5407) RV % TLC LLN (test 23 code = 5408) RV % TLC % Pre of 135.1 % Predicted (test code = 5410) R0.5IN Pre (test code 1.89 cmH2O*s/L = 5514) R0.5IN Predicted (test 3.06 code = 5512) R0.5IN LLN (test code 3.06 = 5513) R0.5IN % Pre of 61.7 % Predicted (test code = 5515) FRCpl Pre (test code = 4.50 L 5388) FRCpl % Predicted 3.78 (test code = 5386) FRCpl % LLN (test code 2.62 = 5387) FRCpl % Pre of 119.2 % Predicted (test code = 5389) ERV Pre (test code = 0.97 L 5381) ERV Predicted (test 1.27 code = 5379) ERV LLN (test code = 0.43 5380) ERV % Pre of Predicted 76.1 % (test code = 5382) IC Pre (test code = 3.37 L 5395) IC Predicted (test 3.46 code = 5393) IC LLN (test code = 2.42 5394) IC % Pre of Predicted 97.3 % (test code = 5396) sR0.5IN Pre (test code 8.88 cmH2O*s = 5521) sR0.5IN LLN (test code 12.00 = 5520) sR0.5IN Predicted 12.00 (test code = 5519) sR0.5IN % Pre of 74.0 % Predicted (test code = 5522) Raw Pre (test code = 2.70 cmH2O*s/L 5507) Raw Predicted (test 3.06 code = 5505) Raw LLN (test code = 3.06 5506) Raw % Pre of Predicted 88.3 % (test code = 5508) sGaw Predicted (test 0.08 See_Comment [Autom ated message] code = 5528) The system MD2U generated this result transmitted ref erence range: 1/(cmH2O *s). The reference range was not used to interpr et this result as normal/abnormal . sGaw Predicted (test 0.08 code = 5526) sGaw LLN (test code = 0.08 5527) sGaw % Pre of 94.3 % Predicted (test code = 5529) FEV1 Pre (test code = 2.92 L 5348) FEV1 Predicted (test 3.35 code = 5302) FEV1 LLN (test code = 2.46 5347) FEV1 % Pre of 87.2 % Predicted (test code = 5308) FVC Pre (test code = 4.18 L 5354) FVC Predicted (test 4.39 code = 5307) FVC LLN (test code = 3.29 5353) FVC % Pre of Predicted 95.3 % (test code = 5355) FEV1/FVC % Pre (test 69.76 % code = 5361) FEV1/FVC % Predicted 77 (test code = 5359) FEV1/FVC % LLN (test 64 code = 5360) FEV1/FVC % Pre of 91.2 % Predicted (test code = 5362) FEF 25-75% Pre (test 1.78 L/s code = 5547) FEF 25-75% Predicted 2.63 (test code = 5546) FEF 25-75% LLN (test 1.20 code = 5545) FEF 25-75% % Pre of 67.9 % Predicted (test code = 5548) PEF Pre (test code = 7.32 L/s 5367) PEF Predicted (test 8.74 code = 5310) PEF LLN (test code = 6.42 5366) PEF % Pre of Predicted 83.8 % (test code = 5368) DLCO Pre (test code = 22.96 See_Comment [Auto mated message] 5423) The system MD2U generated this result transmitted ref erence range: 19.61 - 34.63 ml/(min*mmHg). The reference range was not used to interpr et this result as normal/abnormal . DLCO Predicted (test 26.48 code = 5421) DLCO LLN (test code = 19.61 5422) DLCO % Pre of 86.7 % Predicted (test code = 5424) DLCOc Pre (test code = 23.58 See_Comment [Aut omated message] 5430) The system MD2U generated this result transmitted ref erence range: 19.61 - 34.63 ml/(min*mmHg). The reference range was not used to interpr et this result as normal/abnormal . DLCOc Predicted (test .48 code = 5428) DLCOc LLN (test code = 19.61 5429) DLCOc % Pre of 89.1 % Predicted (test code = 5431) DL/VA Pre (test code = 3.41 See_Comment [Aut omated message] 5437) The system MD2U generated this result transmitted ref erence range: 3.08 - 5 .25 ml/(min*mmHg*L) . The reference range was not used to interpr et this result as normal/abnormal . DL/VA Predicted (test 4.12 code = 5435) DL/VA LLN (test code = 3.08 5436) DL/VA % Pre of 82.9 % Predicted (test code = 5438) KCOc SB Pre (test code 3.50 See_Comment [Aut omated message] = 5535) The system MD2U generated this result transmitted ref erence range: 3.08 - 5 .25 ml/(min*mmHg*L) . The reference range was not used to interpr et this result as normal/abnormal . KCOc SB Predicted 4.12 (test code = 5533) KCOc SB LLN (test code 3.08 = 5534) KCOc SB % Pre of 85.1 % Predicted (test code = 5536) VA SB Pre (test code = 6.73 L 5.22-7.82 5444) VA SB Predicted (test 6.47 code = 5442) VA SB LLN (test code = 5.22 5443) VA SB % Pre of 104.0 % Predicted (test code = 5445) Hb Pre (test code = 13.70 g(Hb)/dL 5540) [facility], diffusion, lung [id number] 18:41:40 Test Item Value Reference Range Interpretation Comments VC Pre (test code = 4.33 L 5374) VC Predicted (test 4.79 code = 5372) VC LLN (test code = 3.81 5373) VC % Pre of Predicted 90.5 % (test code = 5375) TLC Pre (test code = 7.87 L 5416) TLC Predicted (test 7.18 code = 5414) TLC LLN (test code = 5.71 5415) TLC % Pre of Predicted 109.7 % (test code = 5417) RV Pre (test code = 3.54 L 5402) RV Predicted (test 2.42 code = 5400) RV LLN (test code = 1.47 5401) RV % Pre of Predicted 146.2 % (test code = 5403) RV % TLC Pre (test 44.95 % code = 5409) RV % TLC Predicted 33 (test code = 5407) RV % TLC LLN (test 23 code = 5408) RV % TLC % Pre of 135.1 % Predicted (test code = 5410) R0.5IN Pre (test code 1.89 cmH2O*s/L = 5514) R0.5IN Predicted (test 3.06 code = 5512) R0.5IN LLN (test code 3.06 = 5513) R0.5IN % Pre of 61.7 % Predicted (test code = 5515) FRCpl Pre (test code = 4.50 L 5388) FRCpl % Predicted 3.78 (test code = 5386) FRCpl % LLN (test code 2.62 = 5387) FRCpl % Pre of 119.2 % Predicted (test code = 5389) ERV Pre (test code = 0.97 L 5381) ERV Predicted (test 1.27 code = 5379) ERV LLN (test code = 0.43 5380) ERV % Pre of Predicted 76.1 % (test code = 5382) IC Pre (test code = 3.37 L 5395) IC Predicted (test 3.46 code = 5393) IC LLN (test code = 2.42 5394) IC % Pre of Predicted 97.3 % (test code = 5396) sR0.5IN Pre (test code 8.88 cmH2O*s = 5521) sR0.5IN LLN (test code 12.00 = 5520) sR0.5IN Predicted 12.00 (test code = 5519) sR0.5IN % Pre of 74.0 % Predicted (test code = 5522) Raw Pre (test code = 2.70 cmH2O*s/L 5507) Raw Predicted (test 3.06 code = 5505) Raw LLN (test code = 3.06 5506) Raw % Pre of Predicted 88.3 % (test code = 5508) sGaw Predicted (test 0.08 See_Comment [Autom ated message] code = 5528) The system MD2U generated this result transmitted ref erence range: 1/(cmH2O *s). The reference range was not used to interpr et this result as normal/abnormal . sGaw Predicted (test 0.08 code = 5526) sGaw LLN (test code = 0.08 5527) sGaw % Pre of 94.3 % Predicted (test code = 5529) FEV1 Pre (test code = 2.92 L 5348) FEV1 Predicted (test 3.35 code = 5302) FEV1 LLN (test code = 2.46 5347) FEV1 % Pre of 87.2 % Predicted (test code = 5308) FVC Pre (test code = 4.18 L 5354) FVC Predicted (test 4.39 code = 5307) FVC LLN (test code = 3.29 5353) FVC % Pre of Predicted 95.3 % (test code = 5355) FEV1/FVC % Pre (test 69.76 % code = 5361) FEV1/FVC % Predicted 77 (test code = 5359) FEV1/FVC % LLN (test 64 code = 5360) FEV1/FVC % Pre of 91.2 % Predicted (test code = 5362) FEF 25-75% Pre (test 1.78 L/s code = 5547) FEF 25-75% Predicted 2.63 (test code = 5546) FEF 25-75% LLN (test 1.20 code = 5545) FEF 25-75% % Pre of 67.9 % Predicted (test code = 5548) PEF Pre (test code = 7.32 L/s 5367) PEF Predicted (test 8.74 code = 5310) PEF LLN (test code = 6.42 5366) PEF % Pre of Predicted 83.8 % (test code = 5368) DLCO Pre (test code = 22.96 See_Comment [Auto mated message] 5423) The system MD2U generated this result transmitted ref erence range: 19.61 - 34.63 ml/(min*mmHg). The reference range was not used to interpr et this result as normal/abnormal . DLCO Predicted (test 26.48 code = 5421) DLCO LLN (test code = 19.61 5422) DLCO % Pre of 86.7 % Predicted (test code = 5424) DLCOc Pre (test code = 23.58 See_Comment [Aut omated message] 5430) The system MD2U generated this result transmitted ref erence range: 19.61 - 34.63 ml/(min*mmHg). The reference range was not used to interpr et this result as normal/abnormal . DLCOc Predicted (test 26.48 code = 5428) DLCOc LLN (test code = 19.61 5429) DLCOc % Pre of 89.1 % Predicted (test code = 5431) DL/VA Pre (test code = 3.41 See_Comment [Aut omated message] 5437) The system MD2U generated this result transmitted ref erence range: 3.08 - 5 .25 ml/(min*mmHg*L) . The reference range was not used to interpr et this result as normal/abnormal . DL/VA Predicted (test 4.12 code = 5435) DL/VA LLN (test code = 3.08 5436) DL/VA % Pre of 82.9 % Predicted (test code = 5438) KCOc SB Pre (test code 3.50 See_Comment [Aut omated message] = 5535) The system MD2U generated this result transmitted ref erence range: 3.08 - 5 .25 ml/(min*mmHg*L) . The reference range was not used to interpr et this result as normal/abnormal . KCOc SB Predicted 4.12 (test code = 5533) KCOc SB LLN (test code 3.08 = 5534) KCOc SB % Pre of 85.1 % Predicted (test code = 5536) VA SB Pre (test code = 6.73 L 5.22-7.82 5444) VA SB Predicted (test 6.47 code = 5442) VA SB LLN (test code = 5.22 5443) VA SB % Pre of 104.0 % Predicted (test code = 5445) Hb Pre (test code = 13.70 g(Hb)/dL 5540) [facility] CampusScirkrupBXAE-XiO-4 (COVID-19) RNA [Presence] in Respiratory specimen by CRYSTAL with probe [id number] 13:35:40 Test Item Value Reference Range Interpretation Comments SARS-CoV-2 (COVID-19) RNA Not detected [Presence] in Respiratory specimen by CRYSTAL with probe detection (test code = 61967-5) Whether patient is employed in a Unknown healthcare setting (test code = 28015-1) Whether the patient has symptoms Unknown related to condition of interest (test code = 28089-1) Whether the patient was Unknown hospitalized for condition of interest (test code = 74162-3) Whether the patient was admitted Unknown to intensive care unit (ICU) for condition of interest (test code = 80948-1) Whether patient resides in a Unknown congregate care setting (test code = 05762-5) status (test code = Unknown 47209-0) Date and time of symptom onset Unknown (test code = 91320-2) STRONG BERNIE DONOVANAFB [id number] 00:14:00 Test Item Value Reference Range Interpretation Comments AFB culture No growth Specimen isolate (test after 6 weeks InformationSp ecimen code = 543-9) of Source: Ascite s incubation. FluidSpecimen S ite: Not otherwise speci fied [facility]Fung[facility] [id number] 00:15:00 Test Item Value Reference Range Interpretation Comments Fungus culture No growth Specimen isolate (test after 4 weeks InformationSp ecimen code = 580-1) of Source: Ascite s incubation. FluidSpecimen S ite: Not otherwise speci fied [facility] [id number] 16:32:30 Test Item Value Reference Range Interpretation Comments Case number (test code = [id number]) Surgical pathology See link below for report (test code = PDF Lab Report 2251) Result status (test code This is Final Report = [id number]) for [id number] [facility]Aerobic [id number] 21:47:00 Test Item Value Reference Range Interpretation Comments Aerobic culture No growth Specimen isolate (test after 3 days. InformationSp ecimen code = 25756-1) Source: Asci steve FluidSpecimen S ite: Not otherwise speci fied [facility]Cytology (non-gynecological) [id number] 18:55:30 Test Item Value Reference Range Interpretation Comments Case number (test code = [id number]) Cytology See link below for (non-gynecological) PDF Lab Report report (test code = 1178) Result status (test code This is Final Report = [id number]) for [id number] [facility] HospitalAFB [id number] 18:07:00 Test Item Value Reference Range Interpretation Comments AFB stain No acid fast Specimen (test code = bacilli (AFB) InformationSpe cimen 676-7) seen. Source: Ascites FluidSpecimen S ite: Not otherwise speci fied [facility] HospitalFungus [id number] 17:18:00 Test Item Value Reference Range Interpretation Comments Fungus smear No fungi Specimen (test code = observed. InformationSpec imen Source: 1443) Ascites FluidSp ecimen Site: Not otherwise s pecified [facility] [id number] 13:20:00 Test Item Value Reference Range Interpretation Comments POC glucose (test code = 117 mg/dL 65-99 H Ope rator Name: [id number]) Terry Moyer ID: [id number] able: [facility] Notified contact center representative Interpretation (test Abnormal code = 84106-0) [facility]Cell count and differential, body [id number] 03:19:00 Test Item Value Reference Range Interpretation Comments Misc fluid type (test Ascitic code = 97497-3) Color, fluid (test Yellow code = 6824-7) Appearance, fluid Hazy (test code = 9335-1) RBC, fluid (test code SEE COMMENT See_Comment 2+ (50 0 - 10,000 = 91928-4) RBC/CMM) [Autom ated message] The sy stem which generated this result transmit fermín reference range : /CMM. The refer ence range was not u sed to interpret this result as normal/abnor mal. Nucleated cells, 219 See_Comment [Automated message] fluid (test code = The syste m which 88449-4) generated this result transmitted ref erence range: /CMM. Th e reference range was not used to int erpret this result as normal/abnormal . Fluid mononuclear See Diff cell (test code = 1407) Neutrophils, fluid 1 % (test code = 99868-7) Lymphocytes, fluid 63 % (test code = 43315-4) Eosinophils, fluid 1 % (test code = 78349-4) Mesothelial cells, 5 % fluid (test code = 76417-0) Macrophages, fluid 30 % (test code = 60841-8) [facility] AntonioGram [id number] 23:56:00 Test Item Value Reference Range Interpretation Comments Gram stain No WBC's or Specimen isolate (test organisms seen. Information Specimen code = 1469) Source: Ascites FluidSpecimen S ite: Not otherwise speci fied [facility] AntonioAlbum[facility], [facility] [place] [id number] 22:07:00 Test Item Value Reference Range Interpretation Comments Fluid type (test Ascitic code = 75396-3) Albumin, fluid 0.5 g/dL The reference interval(s) (test code = and other metho d 1747-5) performance spe cifications have not been e stablished for this body f luid. The test results mu st be integrated into the clinical contex t for interpretation. This test has been modifi ed from the record keeper?s instructions. T he performance bere racteristics were determined by [facility] in a manner consiste nt with CLIA requirements. T his test has not been cleare d or approved by the U.S. Food and Drug Admini stration. [facility] AntonioProtein, [facility] [place] [id number] 22:07:00 Test Item Value Reference Range Interpretation Comments Fluid type (test Ascitic code = 63445-4) Protein, fluid 0.9 g/dL The reference interval(s) (test code = and other metho d 2881-1) performance spe cifications have not been e stablished for this body f luid. The test results mu st be integrated into the clinical contex t for interpretation. This test has been modifi ed from the record keeper?s instructions. T he performance bere racteristics were determined by [facility] in a manner consiste nt with CLIA requirements. T his test has not been cleare d or approved by the U.S. Food and Drug Admini stration. Bernie Menendez-CoV-2 (COVID-19) RNA [Presence] in Respiratory specimen by CRYSTAL with probe [id number] 19:36:11 Test Item Value Reference Range Interpretation Comments SARS-CoV-2 (COVID-19) RNA Not detected [Presence] in Respiratory specimen by CRYSTAL with probe detection (test code = 58624-3) Whether patient is employed in a Unknown healthcare setting (test code = 48409-7) Whether the patient has symptoms Unknown related to condition of interest (test code = 29167-2) Whether the patient was Unknown hospitalized for condition of interest (test code = 96200-6) Whether the patient was admitted Unknown to intensive care unit (ICU) for condition of interest (test code = 09425-2) Whether patient resides in a Unknown congregate care setting (test code = 08216-0) status (test code = Unknown 35901-0) Date and time of symptom onset Unknown (test code = 15765-8) TAE NICKERSON-CoV-2 (COVID-19) RNA [Presence] in Respiratory specimen by CRYSTAL with probe [id number] 18:52:05 Test Item Value Reference Range Interpretation Comments SARS-CoV-2 (COVID-19) RNA Not detected Not-Detected [Presence] in Respiratory specimen by CRYSTAL with probe detection (test code = 06622-2) Whether patient is employed in a healthcare setting (test code = 85602-0) Whether the patient has symptoms related to condition of interest (test code = 31785-2) Patient was hospitalized because of this condition (test code = 47071-2) Whether the patient was admitted to intensive care unit (ICU) for condition of interest (test code = 83350-6) Whether patient resides in a congregate care setting (test code = 89483-1) TAE DONOVAN
[2023-05-11] MEDS ORDERED: HYDROMORPHONE HCL 1 MG/ML INJ ONE (10:13)
[2023-05-11] MEDS ORDERED: ONDANSETRON 4 MG/2 ML VIAL ONE (10:13)
[2023-05-11 11:18] LABS: Absolute Lymphocytes (CBC) 0.8 K/uL (0.7-4.9); Hematocrit 35.1 % (39.6-49.0); Lymphocytes % 13.2 % (15.3-44.8); MCV 94.9 fL (80-100); MPV 9.1 fL (7.6-11.3); Platelets 103 thou/uL (152-406)
[2023-05-11 11:35] LABS: Bilirubin Total 3.7 mg/dL (0.2-1.0); Potassium 3.9 mEq/L (3.5-5.1); Protein, Total 7.8 g/dL (6.4-8.2)
--- NOTE | 2023-05-11 12:03 | RAD REPORT ---
EXAM DESCRIPTION: CTAbdomen Pelvis W Contrast - 05/11/2023 11:51 am CLINICAL HISTORY: inguinal hernia;Abd pain COMPARISON: No comparisons TECHNIQUE: CT of the abdomen and pelvis was performed. All CT scans are performed using dose optimization technique as appropriate and may include automated exposure control or mA/KV adjustment according to patient size. FINDINGS: Lower chest: Coronary artery calcifications. Liver: Cirrhotic liver morphology with TIPS in place. Biliary: No biliary ductal dilatation. Stomach: No significant focal abnormality. Duodenum: No significant focal abnormality. Pancreas: No significant abnormality. Spleen: Mild splenomegaly. Mild perihepatic ascites. Adrenal: No suspicious lesions. Kidney/ureter: No hydronephrosis. No renal calculi. Mild right renal scarring. Retroperitoneum: No retroperitoneal adenopathy. Vascular: No aneurysm. Bowel: Small bowel containing right inguinal hernia as noted below. No bowel obstruction. Moderate st ool.. Peritoneum: Small volume of pleural free fluid. Narrow neck small bowel containing right inguinal her rodrigo. The mesentery within the hernia has vascular engorgement. There is diminished enhancement of the loops of small bowel within the hernia. There is also some fluid within the hernia. Mild nonspecific omental mesenteric edema. Bladder: Grossly unremarkable. Reproductive: No adnexal masses. Bones: No acute fracture. Other: n/a IMPRESSION: Narrow neck small bowel containing right inguinal hernia. Diminished enhancement and mes enteric edema could reflect incarceration and/or strangulation. Recommend surgical consultation.
--- NOTE | 2023-05-11 12:23 | EDPHYS ---
Physician Documentation [facility] Name: Eamon Mullen Age: 68 yrs Sex: Male : 1955 Arrival Date: 05/11/2023 Time: 09:18 Bed 15 Private MD: ED Physician Olegario Mora HPI: 05/11 09:53 This 68 yrs old Male presents to ER via Wheelchair with complaints of Abdominal Pain, sb4 hernia. 09:53 The patient presents with abdominal pain. sb4 10:32 patient with complicated medical history, has chronic liver failure, TIPs procedure sb4 done 1 month ago, on liver transplant list. has a known right inguinal hernia that they have been monitoring. states this morning it became larger and significantly more painful. was trying to get him to [facility] where his medical team is but the pain was too severe. Historical: - Allergies: 09:40 Sulfa (Sulfonamide Antibiotics); hb 09:40 Strawberries; hb - Home Meds: 09:45 Lactulose Oral [Active]; Temazepam Oral [Active]; Lasix Oral [Active]; amlodipine oral hb [Active]; cholecalciferol (vitamin D3) oral [Active]; levothyroxine oral [Active]; Protonix Oral [Active]; Propranolol Oral [Active]; Xifaxan oral [Active]; clopidogrel oral [Active]; Zinc Sulfate Oral [Active]; - PMHx: 09:40 Ascites; Acute Hepatic Encephalopathy; Enlarged Prostate; HTN; Hyperlipidemia; Sick hb Sinus Syndrome; Inguinal hernia; Cirrhosis s/t ANGUIANO; CAD; Adenocarcinoma of Prostate; 09:44 ON LIVER TRANSPLANT LIST; hb - PSHx: 09:44 Hernia Repair; Cardiac Stents; Shoulder - Left; Knee - Right; Pacemaker; TIPS; hb Testicular Torsion; - Immunization history:: Adult Immunizations up to date. - Social history:: Smoking status: Patient denies any tobacco usage or history of. ROS: 10:32 Constitutional: Negative for fever, chills, and weight loss, sb4 10:32 Abdomen/GI: Positive for abdominal pain, 10:32 Abdomen/GI: Positive for 10:32 : Positive for 10:32 All other systems are negative, 10:34 Abdomen/GI: Positive for nausea, sb4 Exam: 10:34 Head/Face: Normocephalic, atraumatic. Cardiovascular: Regular rate and rhythm with a sb4 normal S1 and S2. Respiratory: Lungs have equal breath sounds bilaterally, clear to auscultation and percussion. No rales, rhonchi or wheezes noted. No increased work of breathing, no retractions or nasal flaring. MS/ Extremity: Pulses equal, no cyanosis. Neurovascular intact. Full, normal range of motion. Neuro: Awake and alert, GCS 15, oriented to person, place, time, and situation. Motor strength 5/5 in all extremities. Sensory grossly intact. 10:34 Constitutional: The patient appears alert, awake, in obvious pain, 10:34 Eyes: Sclera: icterus, is present, 10:34 Abdomen/GI: Palpation: severe abdominal tenderness, Hernia: noted in the right inguinal area, tenderness, that is severe, 10:34 Skin: Appearance: Color: jaundiced, Vital Signs: 09:38 BP 158 / 76; Pulse 50; Resp 16; Temp 97.6(O); Pulse Ox 100% on R/A; Weight 76.2 kg; hb Height 5 ft. 10 in. ; Pain 10/10; 11:05 BP 152 / 63; Pulse 50; Resp 18; Pulse Ox 99% ; Pain 10/10; nj1 12:23 BP 161 / 64; Pulse 50; Resp 18; Pulse Ox 100% on R/A; Pain 10/10; nj1 14:51 Pain 8/10; ld1 14:52 BP 142 / 54; Pulse 50; Resp 18; Pulse Ox 99% ; Pain 8/10; ld1 15:45 Pain 7/10; nj1 16:00 BP 176 / 76; Pulse 50; Resp 16; Pulse Ox 99% ; Pain 7/10; nj1 09:38 Body Mass Index 24.11 (76.20 kg, 177.8 cm) hb 09:38 Pain Scale: Adult hb 11:05 Pain Scale: Adult nj1 12:23 Pain Scale: Adult nj1 14:51 Pain Scale: Adult ld1 14:52 Pain Scale: Adult ld1 15:45 Pain Scale: Adult nj1 16:00 Pain Scale: Adult nj1 MDM: 09:31 Patient medically screened. sb4 10:36 Differential diagnosis: incarcerated hernia, SBO. sb4 05/12 10:29 Data reviewed: vital signs, nurses notes, lab test result(s), radiologic studies, I sb4 have discussed the patient's presentation/case with the attending Emergency Department Physician; and as a result, I will admit patient. Consideration of Admission/Observation Patient was admitted/placed on observation. Management of patient was discussed with the following: Hospitalist: Dr. Morales, accepts patient for admission. [employer] Agent [employer] Insurance: Dr. Funez, saw patient at bedside, attempted to reduce unsuccessfully. Will take patient to OR shortly. Care significantly affected by the following chronic conditions: Hypertension, Liver Disease. Counseling: I had a detailed discussion with the patient and/or guardian regarding the historical points, exam findings, and any diagnostic results supporting the discharge/admit diagnosis, the presence of at least one elevated blood pressure reading (>120/80) during this emergency department visit, lab results, radiology results, the need for further work-up and treatment in the hospital. 05/11 09:47 Order name: CBC with Diff; Complete Time: 11:21 sb4 05/11 09:47 Order name: CMP; Complete Time: 11:39 sb4 05/11 09:47 Order name: Lipase; Complete Time: 11:39 sb4 05/11 09:47 Order name: Lactate w/ 2H reflex if indic.; Complete Time: 11:52 sb4 05/11 15:19 Order name: PT-INR; Complete Time: 16:10 sb4 05/11 16:32 Order name: Lactate Sepsis 2 HR Follow-up; Complete Time: 16:32 EDMS 05/11 09:47 Order name: CT Abd/Pelvis - IV Contrast Only; Complete Time: 12:06 sb4 05/11 09:47 Order name: IV Saline Lock; Complete Time: 11:13 sb4 05/11 09:47 Order name: Labs collected and sent; Complete Time: 11:13 sb4 Administered Medications: 05/11 11:05 Drug: Ondansetron IVP 4 mg IVP once; over 2 minutes Route: IVP; Site: left upper arm; nj1 12:28 Follow up: Response: No adverse reaction nj1 11:05 Drug: HYDROmorphone IVP 1 mg IVP once Route: IVP; Site: left upper arm; nj1 12:27 Follow up: Response: No adverse reaction; Pain is unchanged, physician notified nj1 13:01 Drug: morphine IVP or IV 4 mg IVP once over 4 mins Route: IVP; Infused Over: 4 mins; nj1 Site: left upper arm; 14:51 Follow up: Pain 8/10 Adult; Response: No adverse reaction; Pain is decreased ld1 13:05 Drug: Promethazine IVP 12.5 mg IVP once Route: IVP; Site: left upper arm; nj1 14:51 Follow up: Response: No adverse reaction ld1 14:51 Drug: morphine IVP or IV 4 mg IVP once over 4 mins Route: IVP; Infused Over: 4 mins; ld1 Site: left upper arm; 15:45 Follow up: Pain 7/10 Adult; Response: No adverse reaction; Pain is decreased nj1 15:12 Drug: NS 0.9% IV 250 ml IV at bolus once Route: IV; Rate: bolus; Site: left upper arm; ld1 15:40 Follow up: IV Status: Completed infusion; IV Intake: 250ml nj1 Disposition Summary: 05/11/23 16:06 Hospitalization Ordered Notes: Hospitalization Status: Inpatient Admission sb4 Provider: Darrel Morales sb4 Location: Telemetry/[facility] (Inpatient)(05/11/23 16:06) sb4 Condition: Stable(05/11/23 16:06) sb4 Problem: new(05/11/23 16:06) sb4 Symptoms: are unchanged(05/11/23 16:06) sb4 Bed/Room Type: Standard sb4 Room Assignment: sb4 Diagnosis - Unilateral inguinal hernia, with obstruction, without gangrene, not specified as sb4 recurrent(05/11/23 16:06) Forms: - Medication Reconciliation Form sb4 - SBAR form sb4 - Leadership Thank You Letter sb4 Addendum: 05/12/2023 16:43 I was immediately available for consultation during this patient's visit. I did not e c2 personally see the patient or guide the patient's care.. Signatures: Dispatcher [employer] Sharon Prater RN RN Yuly Garcia RN RN ld1 Medina Medina PA-C PACarrie sb4 Teresa Bruno RN RN nj1 Olegario Mora MD MD ec2 Corrections: (The following items were deleted from the chart) 10/28 13:28 09:40 PMHx: COPD; hb sb4 14:13 12:23 gen surg sb4 sb4 14: 12:23 Gnosticism System sb4 sb4 14: 12:23 Higher level of care sb4 sb4 14: 12:23 Fair sb4 sb4 14: 12:23 new sb4 sb4 14: 12:23 are unchanged sb4 sb4 14: 12:23 Unilateral inguinal hernia, with obstruction, without gangrene, not specified as sb4 recurrent sb4 14:49 14:15 Home sb4 sb4 14:49 14:15 new sb4 sb4 14:49 14:15 are unchanged sb4 sb4 14:49 14:15 Serious sb4 sb4 14:49 14:15 Unilateral inguinal hernia, with obstruction, without gangrene, not specified as sb4 recurrent sb4
--- NOTE | 2023-05-11 12:23 | ER ---
Nurse's Notes [facility] Name: Eamon Mullen Age: 68 yrs Sex: Male : 1955 Arrival Date: 05/11/2023 Time: 09:18 Bed 15 Private MD: Diagnosis: Unilateral inguinal hernia, with obstruction, without gangrene, not specified as recurrent Presentation: 05/11 09:38 Chief complaint: Right sided groin pain that radiates to abdomen and severe nausea hb since last night. Pt reports known right inguinal hernia that feels bigger and more painful today. Coronavirus screen: At this time, the client does not indicate any symptoms associated with coronavirus-19. Ebola Screen: No symptoms or risks identified at this time. Initial Sepsis Screen: Does the patient meet any 2 criteria? No. Patient's initial sepsis screen is negative. Does the patient have a suspected source of infection? No. Patient's initial sepsis screen is negative. Risk Assessment: Do you want to hurt yourself or someone else? Patient reports no desire to harm self or others. Onset of symptoms was May 10, 2023. 09:38 Method Of Arrival: Wheelchair hb 09:38 Acuity: HANK 2 hb 09:[address] Susan Garza, Crusher Setter is Dr. Mike at [facility]. hb Historical: - Allergies: 09:40 Sulfa (Sulfonamide Antibiotics); hb 09:40 Strawberries; hb - Home Meds: 09:45 Lactulose Oral [Active]; Temazepam Oral [Active]; Lasix Oral [Active]; amlodipine oral hb [Active]; cholecalciferol (vitamin D3) oral [Active]; levothyroxine oral [Active]; Protonix Oral [Active]; Propranolol Oral [Active]; Xifaxan oral [Active]; clopidogrel oral [Active]; Zinc Sulfate Oral [Active]; - PMHx: 09:40 Ascites; Acute Hepatic Encephalopathy; Enlarged Prostate; HTN; Hyperlipidemia; Sick hb Sinus Syndrome; Inguinal hernia; Cirrhosis s/t ANGUIANO; CAD; Adenocarcinoma of Prostate; 09:44 ON LIVER TRANSPLANT LIST; hb - PSHx: 09:44 Hernia Repair; Cardiac Stents; Shoulder - Left; Knee - Right; Pacemaker; TIPS; hb Testicular Torsion; - Immunization history:: Adult Immunizations up to date. - Social history:: Smoking status: Patient denies any tobacco usage or history of. Screenin:15 [facility] ED Fall Risk Assessment (Adult) Score/Fall Risk Level 0 - 2 = Low Risk nj1 Oriented to surroundings, Maintained a safe environment, Hourly rounding (assess needs \T\ fall precautionary measures) done. Abuse screen: Denies threats or abuse. Denies injuries from another. Nutritional screening: No deficits noted. Tuberculosis screening: No symptoms or risk factors identified. Assessment: 10:10 General: Appears in no apparent distress. uncomfortable, Behavior is calm, cooperative, nj1 appropriate for age. Pain: Complains of pain in abdomen Pain currently is 10 out of 10 on a pain scale. Neuro: Level of Consciousness is awake, alert, obeys commands, Oriented to person, place, time, situation. Cardiovascular: Patient's skin is warm and dry. Respiratory: Airway is patent Respiratory effort is even, unlabored. GI: Guarding Reports lower abdominal pain. 11:05 Reassessment: No changes from previously documented assessment. nj1 12:27 Reassessment: Patient appears in no apparent distress at this time. Patient and/or nj1 family updated on plan of care and expected duration. Pain level reassessed. Patient is alert, oriented x 3, equal unlabored respirations, skin warm/dry/pink. 14:51 Reassessment: Patient appears in no apparent distress at this time. No changes from ld1 previously documented assessment. Patient and/or family updated on plan of care and expected duration. Pain level reassessed. Patient is alert, oriented x 3, equal unlabored respirations, skin warm/dry/pink. 16:00 Reassessment: Patient appears in no apparent distress at this time. No changes from nj1 previously documented assessment. Patient and/or family updated on plan of care and expected duration. Pain level reassessed. Patient is alert, oriented x 3, equal unlabored respirations, skin warm/dry/pink. 16:34 Reassessment:. nj1 Vital Signs: 09:38 BP 158 / 76; Pulse 50; Resp 16; Temp 97.6(O); Pulse Ox 100% on R/A; Weight 76.2 kg; hb Height 5 ft. 10 in. ; Pain 10/10; 11:05 BP 152 / 63; Pulse 50; Resp 18; Pulse Ox 99% ; Pain 10/10; nj1 12:23 BP 161 / 64; Pulse 50; Resp 18; Pulse Ox 100% on R/A; Pain 10/10; nj1 14:51 Pain 8/10; ld1 14:52 BP 142 / 54; Pulse 50; Resp 18; Pulse Ox 99% ; Pain 8/10; ld1 15:45 Pain 7/10; nj1 16:00 BP 176 / 76; Pulse 50; Resp 16; Pulse Ox 99% ; Pain 7/10; nj1 09:38 Body Mass Index 24.11 (76.20 kg, 177.8 cm) hb 09:38 Pain Scale: Adult hb 11:05 Pain Scale: Adult nj1 12:23 Pain Scale: Adult nj1 14:51 Pain Scale: Adult ld1 14:52 Pain Scale: Adult ld1 15:45 Pain Scale: Adult nj1 16:00 Pain Scale: Adult nj1 ED Course: 09:21 Patient arrived in ED. im 09:22 Medina Medina PA-C is PHCP. sb4 09:22 Olegario Mora MD is Attending Physician. sb4 09:40 Triage completed. hb 09:50 Arm band placed on. hb 09:56 Teresa Bruno, RN is Primary Nurse. nj1 10:10 Missed attempt(s): 22 gauge in left forearm. nj1 10:15 No provider procedures requiring assistance completed. nj1 11:05 Inserted saline lock: 20 gauge in left upper arm, using aseptic technique. ,using nj1 aseptic technique. Ultrasound guided. Catheter tip well visualized within vasculature during placement. Blood collected. 11:15 Patient has correct armband on for positive identification. Bed in low position. Call nj1 light in reach. Adult w/ patient. 11:15 Provided Education on: call light, fall precautions. nj1 11:53 CT Abd/Pelvis - IV Contrast Only In Process Unspecified. EDMS 12:20 paged the correction officer head physician for Dr. Mike at [phone]/ patient's yardage control clerk. eb 12:51 attempted to initiate a transfer with the [facility] transfer olga and placed on eb immediate hold at the request of the patient and Dr. Duenas /. 12:[address] Neeraj Gonzales the physician correction officer head with [facility] Cabrera for patient eb consultation. 12:59 initiated a transfer with Gladys from the [facility] transfer Center. eb 13:07 per Gladys [facility] will have to decline the patient in transfer due to being at eb capacity. 14:51 initiated a transfer with Syeda Franco Rn from the [facility] Transfer [place]. eb 15:[address] Ford Roberson the general sugeon correction officer head for [facility] with [facility] Cabrera eb for patient transfer consultation. 16:00 Darrel Morales MD is Hospitalizing Provider. sb4 16:32 Notified Juanita STARK RN of 2.6 lactate (reflex). nj1 16:33 Patient admitted, IV remains in place. nj1 Administered Medications: 11:05 Drug: Ondansetron IVP 4 mg IVP once; over 2 minutes Route: IVP; Site: left upper arm; nj1 12:28 Follow up: Response: No adverse reaction nj1 11:05 Drug: HYDROmorphone IVP 1 mg IVP once Route: IVP; Site: left upper arm; nj1 12:27 Follow up: Response: No adverse reaction; Pain is unchanged, physician notified nj1 13:01 Drug: morphine IVP or IV 4 mg IVP once over 4 mins Route: IVP; Infused Over: 4 mins; nj1 Site: left upper arm; 14:51 Follow up: Pain 8/10 Adult; Response: No adverse reaction; Pain is decreased ld1 13:05 Drug: Promethazine IVP 12.5 mg IVP once Route: IVP; Site: left upper arm; nj1 14:51 Follow up: Response: No adverse reaction ld1 14:51 Drug: morphine IVP or IV 4 mg IVP once over 4 mins Route: IVP; Infused Over: 4 mins; ld1 Site: left upper arm; 15:45 Follow up: Pain 7/10 Adult; Response: No adverse reaction; Pain is decreased nj1 15:12 Drug: NS 0.9% IV 250 ml IV at bolus once Route: IV; Rate: bolus; Site: left upper arm; ld1 15:40 Follow up: IV Status: Completed infusion; IV Intake: 250ml nj1 Medication: 16:29 VIS not applicable for this client. nj1 Intake: 15:40 IV: 250ml; Total: 250ml. nj1 Outcome: 12:23 ER care complete, transfer ordered by . sb4 16:06 Decision to Hospitalize by Provider. sb4 16:32 Admitted to OR accompanied by nurse, family with patient, via stretcher, Report called nj1 to Juanita SCHULTE 16:32 Condition: stable 16:32 Instructed on the need for admit, 16:33 Patient left the ED. nj1 Signatures: Dispatcher [employer] EDSharon Minor, RN RN [place] Vincent Yuly Garcia RN RN ld1 Medina Medina, PASonnyC PASonnyC sb4 Teresa Bruno RN RN nj1 Patricia Macario Corrections: (The following items were deleted from the chart) 09:50 09:38 Chief complaint: Right sided groin pain that radiates to abdomen and severe hb nausea since last night. Pt reports known right inguinal hernia that feels bigger and more painful today. hb 13:02 12:[address] Duenas the physician correction officer head with [facility] Cabrera for patient eb consultation. eb 13:28 09:40 PMHx: COPD; sb4 14:52 14:50 initiated a transfer with Syeda Franco Rn from the [facility] Transfer Center eb eb
[2023-05-11] MEDS ORDERED: PROMETHAZINE INJ 25 MG/ML AMP ONE (13:10)
[2023-05-11] MEDS ORDERED: MORPHINE 4 MG/ML SYR ONE ×2 (13:10→14:57)
[2023-05-11] MEDS ORDERED: NA CHLORIDE 0.9% 250 ML ONE (15:17)
[2023-05-11 16:09] LABS: Protime INR 1.99
[2023-05-11] MEDS ORDERED: ALBUTEROL 2.5 MG/3 ML NEB SOL NEB PRN (16:50)
[2023-05-11] MEDS ORDERED: ONDANSETRON 4 MG/2 ML VIAL IV PRN (16:50)
--- NOTE | 2023-05-11 17:05 | P.HP ---
Certification for Inpatient With expected LOS: <2 Midnights <Quoc Dacosta - Last Filed: 05/11/23 17:40> Patient History Date of Service: 05/11/23 Reason for admission: Abdominnal Pain, Inguinl hernia, liver failure History of Present Illness: Mr. Mullen 68-year-old male with primary history of hypertension, hyperlipidemia, sick sinus syndrome, cirrhosis of liver, CAD, adenocarcinoma of prostate Presented to the emergency room via wheelchair with complaints of abdominal pain. Patient's reports that patient is on a liver transplant list and has known to have inguinal hernia that they have been monitoring. patient with complicated medical history, has chronic liver failure, TIPs procedure on April 08, 2023 . patient reports this morning it became larger and became more painful the pain got really worse that day had to come to the nearest hospital rather going to the [facility] where his medical team is. Patient is positive for severe abdominal pain, denies chest pain, palpitation. Patient positive for nausea. ED course Blood pressure 158/76, pulse 50, respirations 16, temperature 97.6, pulse ox 100% on room air Cardiovascular regular sinus rhythm Patient was given analgesics and antiemetics Labs significant for elevated lactic acid 2.4, elevated bilirubin 3.47, elevated hepatic panel AST 71 ALT 50 lipase 105, CT abdomen and pelvis: With contrast shows narrow neck small bowel containing right inguinal hernia recommended surgical consultation. Patient is admitted to the hospital with a diagnosis of unilateral inguinal hernia with obstruction without gangrene not specified. <Quoc Dacosta - Last Filed: 05/11/23 17:40> Date of Service: 05/11/23 <Darrel Morales - Last Filed: 05/12/23 06:42> Allergies Sulfa (Sulfonamide Antibiotics) Allergy (Verified 05/11/23 17:10) Rash Review of Systems 10-point ROS is otherwise unremarkable <Quoc Dacosta - Last Filed: 05/11/23 17:40> Physical Examination - Physical Exam General: Alert, Oriented x3 HEENT: Atraumatic, Normocephalic Neck: Supple, JVD not distended Respiratory: Clear to auscultation bilaterally, Normal air movement Cardiovascular: No edema, Normal pulses, Regular rate/rhythm Capillary refill: <2 Seconds Gastrointestinal: Normal bowel sounds, No ascites, Tenderness Musculoskeletal: No clubbing, No swelling Integumentary: No breakdown Neurological: Normal speech, Normal affect - Studies Laboratory Data (last 24 hrs) 05/11/23 05/11/23 05/11/23 15:45 11:05 11:05 WBC 6.30 Hgb 11.7 L Hct 35.1 L Plt Count 103 L PT 21.9 H INR 1.99 Sodium 136 Potassium 3.9 BUN 13 Creatinine 1.14 Glucose 141 H Total Bilirubin 3.7 H AST 71 H ALT 50 Alkaline Phosphatase 236 H Lipase 105 H <Quoc Dacosta - Last Filed: 05/11/23 17:40> - Studies Laboratory Data (last 24 hrs) 05/11/23 05/11/23 05/11/23 15:45 11:05 11:05 WBC 6.30 Hgb 11.7 L Hct 35.1 L Plt Count 103 L PT 21.9 H INR 1.99 Sodium 136 Potassium 3.9 BUN 13 Creatinine 1.14 Glucose 141 H Total Bilirubin 3.7 H AST 71 H ALT 50 Alkaline Phosphatase 236 H Lipase 105 H <Darrel Morales - Last Filed: 05/12/23 06:42> Assessment and Plan - Plan Assessment and plan Unilateral inguinal hernia with obstruction, without gangrene, recurrent Abdominal pain Hypertension Hyperlipidemia Cirrhosis of liver -ANGUIANO, ([facility] restorative coordinator Talya lainey Lauren telephone #[phone]) CAD Liver cirrhosis on liver transplant list Assessment and plan Unilateral inguinal hernia with obstruction, without gangrene, recurrent Abdominal pain * Patient was admitted with a severe abdominal pain since this morning, * TIPs procedure on April 08, 2023 * elevated lactic acid 2.4, elevated bilirubin 3.47, elevated hepatic panel AST 71 ALT 50 lipase 105, CT abdomen and pelvis: With contrast shows narrow neck small bowel containing right inguinal hernia * Dr. Funez is consulted, patient is for the repair of inguinal hernia, * patient will be admitted to ICU for close monitoring postoperatively Hypertension * Chronic controlled on home medication * Will resume home medication Hyperlipidemia * Chronic controlled on home meds Cirrhosis of liver -ANGUIANO liver transplant list * Patient with a history of chronic liver failure in the transplant list .elevated bilirubin 3.47, elevated hepatic panel AST 71 ALT 50 lipase 105 * Will continue to monitor his liver enzymes CAD * Chronic controlled patient denies chest pain or chest discomfort * Will continue to monitor CODE STATUS Full code DVT prophylaxis SCDs Code diet N.p.o. Discharge Plan: Home Plan to discharge in: 48 Hours - Advance Directives Does patient have a Living Will: No Does patient have a Durable POA for Healthcare: No - Code Status/Comfort Care Code Status Assessed: Yes (Full code) Code Status: Full Code Physician Review: Patient Assessed, Agree with Above Assessment and Plan Critical Care: Yes Time Spent Managing Pts Care (In Minutes): 55 (Minutes) <Quoc Dacosta - Last Filed: 05/11/23 17:40> - Plan Discussed plan of care with ED / Dr. Funez, and CREATIVE RECRUITER Praneeth on 05/11 ED reported attempting transfer of patient from ED due to liver failure history, recent TIPS procedure and incarcerated hernia for specialist backup monitoring post-op / increased risk of complications. Patient had care at [facility] which denied due to capacity. [facility] was attempted however [facility] [place] not [place] patient needed to be transferred for higher level of care. ~4pm, Discussed with Dr. Funez, who stated time is of the essence and definitive/surgical treatment should not be further delayed. Given patient's history /risk, and the amount of time patient has already been waiting in the ED without definitive/surgical treatment. Patient to be admitted here and go to OR. Will monitor in ICU post-op. By report, ED explained to patient and family that we currently do not have GI coverage, no 24/7 financial aid advisor, and inpatient transfer can take quite some time recently that all increase patient's risk of morbidity/mortality. They expressed understanding. Risk of further delay of surgical/definitive treatment outweigh the above. <Darrel Morales - Last Filed: 05/12/23 06:42>
[2023-05-11] MEDS ORDERED: SUCCINYLCHOLINE 20 MG/ML (10 ML) IV ONE (17:13)
[2023-05-11] MEDS ORDERED: Ringers Lactate 1,000 ML IV ONE ×2 (17:20→18:59)
[2023-05-11] MEDS ORDERED: FENTANYL CITR 100 MCG/2 ML ONE (17:26)
[2023-05-11] MEDS ORDERED: ROCURONIUM 50 MG/5 ML VIAL IV ONE (17:26)
[2023-05-11] MEDS ORDERED: propofoL 200 MG/20 ML VIAL IV ONE (17:26)
[2023-05-11] MEDS ORDERED: MIDAZOLAM HCL 2 MG/2 ML INJ ONE (17:26)
[2023-05-11] MEDS ORDERED: CEFAZOLIN SODIUM 1 GM/VIAL ONE (17:30)
[2023-05-11] MEDS ORDERED: PIPER TAZO 3.375 GM in NA CHLORIDE 0.9% 100 ML IV SCH (18:00)
[2023-05-11] MEDS ORDERED: GLYCOPYRROLATE 0.2 MG/ML SYR ONE (18:44)
--- NOTE | 2023-05-11 18:47 | P.HP ---
Date of Service: 05/11/23 PC: I was asked to see this 68-year-old male in regards to left inguinal pain. HPC: Patient has a left inguinal hernia. Up until now abdomen easily reducible. He is a cirrhotic who is on the transplant list. He recently underwent a TIPS. He says that his hernia popped out early this morning, he could not get it back and began to suffer increased pain, and came to the emergency room for evaluation and treatment. PSHx: Right inguinal hernia repair PMHx: Patient has a history of cirrhosis, also has a history of cardiac issues, recently had some stents placed a few months ago. He also has had a TIPS procedure a few weeks ago as well. With that he said he has had about a 40 pound weight loss, his abdomen is gone down markedly as well as his ankles and other places. Social Hx: Allergic to sulfa Sys R: States he is actually feeling quite well, breathing better, has been having regular bowel movements. O/E: Awake alert, ill looking at the moment. In his considerable discomfort. HEENT: Not jaundiced clinically Chest: Chest movement equal bilaterally Abd: Abdomen is soft, however in the right inguinal area 1 can see that the patient has a bulge measuring approximately 8 cm x 4 cm in size. There is no color changes over the skin. It is however markedly tender. It per CT scan contains an incarcerated inguinal hernia. I was unable to reduce it easily in the ER [place]: Intact Data: CT scan shows incarcerated right inguinal hernia, Impression: Incarcerated right inguinal hernia Plan: I will take him to the operating room for laparoscopic possible open reduction and repair of this right incarcerated inguinal hernia. The risks of this procedure have been discussed. The possibility of bleeding, infection, infection, need for bowel resections, possible need for further surgeries and procedures was described. He understands and wants us to proceed.
--- NOTE | 2023-05-11 18:53 | P.OP ---
Preoperative diagnosis: Incarcerated right inguinal hernia Postoperative diagnosis: The same Primary procedure: Laparoscopic reduction of incarcerated right inguinal hernia Secondary procedure: Laparoscopic repair [CATERINA] of incarcerated right indirect inguinal hernia Anesthesia: General Estimated blood loss: Less than 20 cc Specimen: None sent Operative Technique: Patient brought the operating room placed supine on the table. After the induction of adequate general endotracheal anesthesia, and the placement of a Todd catheter, the area of the abdomen was prepped with a DuraPrep solution, and he was draped in the usual aseptic manner. Attention was turned towards the umbilicus. A subumbilical incision was made. We were now able to use the Visiport to carefully visualize the tissue as we came down to the peritoneum and entered the peritoneal cavity under direct vision. Having successfully done so, pneumoperitoneum was created to approximately 12 mmHg. With care we were able to place a 5 mm trocar on the right lateral side by bringing the camera up to the anterior abdominal wall transilluminating and make sure we did not injure enter any of the vessels of the anterior abdominal wall. [place] having been obtained, this maneuver was repeated on the left side. The patient was now placed in marked Trendelenburg. We could see the right inguinal area. We could see that there was a congested loop of bowel going through the anterior abdominal wall. By applying gentle pressure, and mild traction to the intestine we were able to reduce it back into the peritoneal cavity. We could see that it was congested, but did not have any areas of riley nonviability. At this point attention was turned towards the indirect inguinal hernia itself. The peritoneal that had gone through here was grasped with a grasper. It was retracted well back into the peritoneal cavity. An opening was made to do a Preperitoneal repair of this hernia. We were able to dissect the peritoneum off of the spermatic cord. It was cleared and came away actually quite easily due to the amount of edema that was in the subcutaneous tissue with very little bleeding at all. Having reduced well back into the peritoneal cavity, the redundant portion was resected. We were able now to clear and see the Flaco's ligament. A piece of right immediate mesh was now placed into the peritoneal space. It was brought to the preperitoneal opening that we had made, and anchored to Flaco's ligament. This was repeated out laterally. We had were able to get a good dissection superiorly to get the mesh tucked underneath the peritoneum itself. At this point we were able to bring up the inferior portion and reperitonealized the peritoneal cavity. We had a look around the peritoneal cavity at this point. We could see in the right upper quadrant of very nodular white liver. We did take photographs of it but did not move tissue around to get a better view, we did not want to cause bleeding and area that was sign of our concerns today. At this point the bowel was inspected to ensure we still had good viability. This having been done the umbilical trocar site was closed with 2 sutures placed using the Endo Close under direct vision. The pneumoperitoneum was now collapsed, the sutures tied, and madhuri applied to the skin. It was interesting to note during this case, there was minimal ascitic fluid seen throughout the peritoneal cavity. Complications: None Transferred to: Recovery Room Condition: Good
[2023-05-11] MEDS ORDERED: NEOSTIGMINE 1 MG/ML -10 ML VIAL ONE (18:57)
[2023-05-11] MEDS ORDERED: MEPERIDINE HCL 25 MG/ML SYR ONE (19:07)
[2023-05-11] MEDS: NA CHLORIDE 0.9% 1,000 ML IV SCH (19:59)
[2023-05-12] MEDS: PIPER TAZO 3.375 GM in NA CHLORIDE 0.9% 100 ML IV SCH ×3 (03:29→20:24)
[2023-05-12] MEDS: NA CHLORIDE 0.9% 1,000 ML IV SCH ×3 (03:31→19:22)
[2023-05-12 04:48] LABS: Absolute Lymphocytes (CBC) 1.3 K/uL (0.7-4.9); Hematocrit 32.1 % (39.6-49.0); Lymphocytes % 6.5 % (15.3-44.8); MPV 9.8 fL (7.6-11.3); Platelets 152 thou/uL (152-406); RBC Red Blood Cell Count 3.35 M/uL (4.33-5.43)
[2023-05-12 04:49] LABS: Protime INR 2.15
[2023-05-12 05:06] LABS: Albumin 2.5 g/dL (3.4-5.0); Magnesium 1.7 mg/dL (1.6-2.4); Phosphorus 3.9 mg/dL (2.5-4.9); Protein, Total 7.1 g/dL (6.4-8.2)
[2023-05-12] MEDS ORDERED: NA CHLORIDE 0.9% 500 ML IV ONE (05:07)
[2023-05-12 05:18] LABS: Potassium 6.2 mEq/L (3.5-5.1)
[2023-05-12] MEDS ORDERED: GLUCAGON 1 MG/VIAL IM PRN (05:35)
[2023-05-12] MEDS ORDERED: D50W 25 GM/50 ML SYRINGE IV PRN (05:35)
[2023-05-12] MEDS ORDERED: D50W 25 GM/50 ML SYRINGE IV ONE (05:40)
[2023-05-12] MEDS ORDERED: D10W 125 ML IV PRN (05:42)
[2023-05-12] MEDS ORDERED: INSULIN REGULAR (HUMAN) 100 UNIT/ML IV ONE (05:45)
[2023-05-12] MEDS ORDERED: D10W 125 ML IV ONE (06:00)
--- NOTE | 2023-05-12 06:55 | P.PN ---
Date of Service: 05/12/23 Subjective: Feeling better today; abdominal pain improving taken to OR yesterday for Laparoscopic reduction and repair of hernia with Dr. Funez yesterday minimal urinary output per nurses; ~20 ml emptied this morning hasn't been drinking much fluids recently - was NPO for entire day before surgery last night; not much IVF in ED afebrile ROS: 10 point ROS as noted above, otherwise negative Physical Exam: GEN: Alert, oriented, NAD HEENT: Normal conjunctiva, scleral icterus, mild CV: Regular rate and rhythm (paced), trace pedal edema Pulm: Nonlabored respirations on room air, clear bilaterally ABD: Soft, mild abdominal tenderness, dressing in place c/d/i Neuro: Normal speech, normal affect vitals reviewed Problem List: Incarcerated right inguinal hernia, now s/p lap reduction and repair of incarcerated right inguinal hernia (05/11) Lactic acidosis ARNEL, prerenal Hyperkalemia Cirrhosis of liver -ANGUIANO (on transplant list) h/o CAD s/p stents Hypertension Hyperlipidemia h/o prostate cancer Incarcerated right inguinal hernia, now s/p Laparoscopic reduction and repair of incarcerated right inguinal hernia (05/11) Lactic acidosis Admitted to ICU CT abdomen (05/11): Incarcerated right inguinal hernia General surgery consulted- Dr. Funez s/p lap reduction and repair of incarcerated right inguinal hernia (05/11) clear liquids serial abdominal exams continue empiric zosyn (05/12-) afebrile, leukocytosis 6.3 -> 19.3 (05/12) PRN analgesics/antiemetics lactic acid 2.9 -> 5.9 -> 6.8 (05/12); continue to monitor patient does not appear toxic / septic. suspect lactic acidosis more s econdary to reperfusion of incarcerated intestines given patient's liver disease, arnel, surgery, lactic acidosis, overall perioperative morbidity/mortality risk, [facility] - Dr. Arias consulted Encourage incentive spirometry; PRN nebs trend lactate until improves increased IVF 05/12 seems to not have received much IVF in ED yesterday; EMR notes 250ml given. Complicated by waiting for transfer, then going to OR ARNEL Hyperkalemia Nephrology consulted increased IVF 05/12 nurses report low UOP; ~20 ml emptied this morning Patient reports minimal PO intake; +received 250 ml NS bolus in ED suspect dehydration; likely prerenal state but will check PVR to r/o other etiologies Bladder scan ordered (05/12): to check PVR renal u/s ordered (05/12): for further eval Monitor renal function Cirrhosis of liver -ANGUIANO (on transplant list) Patient with a history of chronic liver failure; currently on the transplant list. based on admission labs, which reportedly are near/at baseline: MELD: 21 Child-Biswas: Class C patient high risk of morbidity/mortality, especially perioperatively of abdominal surgeries admitted here for urgent hernia repair due to delay / denial of transfer to [facility] (at capacity), and [facility] general surgeon [facility] life skills coordinator volunteer Talya lainey Lauren telephone #[phone] s/p recent TIPS 04/08/23 Tbili worse 05/12, likely dehydration / post-op will monitor closely monitor while on antibiotics, zosyn with risk of cholestatic injury h/o CAD s/p stents Hypertension Hyperlipidemia h/o prostate cancer confirm home medications, restart as appropriate VTE: SCD Code: Full Dispo: Home Pending further improvement, ~1-2 days Continue ICU level of care for now, downgrade within 24-48hrs
[2023-05-12] MEDS ORDERED: TAMSULOSIN 0.4 MG SR CAP PO SCH (09:00)
[2023-05-12 09:37] LABS: Albumin 2.5 g/dL (3.4-5.0); Bilirubin Total 4.8 mg/dL (0.2-1.0); Magnesium 1.7 mg/dL (1.6-2.4); Phosphorus 3.8 mg/dL (2.5-4.9); Potassium 4.4 mEq/L (3.5-5.1)
[2023-05-12] MEDS ORDERED: HYDROCODONE/APAP 5/325 MG TAB PO PRN (09:59)
[2023-05-12] MEDS ORDERED: MORPHINE 2 MG/ML SYR IV PRN (09:59)
[2023-05-12] MEDS: TRAMADOL HCL 50 MG TAB PO PRN ×2 (10:16→22:07)
--- NOTE | 2023-05-12 11:49 | RAD REPORT ---
EXAM DESCRIPTION: US - Urinary Bladder - 05/12/2023 11:32 am CLINICAL HISTORY: Anuria FINDINGS: Prevoid bladder volume equals 202 cc Postvoid bladder volume equals 206 cc IMPRESSION: Prevoid bladder volume equals 202 cc The patient claims he voided. The postvoid bladder volume is slightly greater than the prevoid volume . Postvoid bladder volume equals 206 cc
--- NOTE | 2023-05-12 11:50 | RAD REPORT ---
EXAM DESCRIPTION: US - Renal Ultrasound-Complete - 05/12/2023 11:32 am CLINICAL HISTORY: anuria COMPARISON: None FINDINGS: The right kidney not visualized secondary to overlying bowel gas The left kidney measures 13 cm with a normal echotexture. Hydronephrosis is not seen. IMPRESSION: Unremarkable left renal ultrasound Right kidney not seen secondary to overlying bowel gas
--- NOTE | 2023-05-12 16:55 | P.PN ---
Date of Service: 05/12/23 S: Patient feels much better, very thankful, says that the pain he had yesterday was on merciful. Much improved today. Delighted that he is peeing on his own. States that he feels like his intestines are already rumbling, and he can feel gas pressure building up in his rectum. O: Vital signs are stable, incisions are clean. Good hernia repair. A: Patient is doing well, while his lactate level is still elevated, he appears to be stable. I would prefer to wait for 24 hours before resuming his lactulose, as I am sure the intestine that was stuck in his hernia will be swollen and edematous. I would prefer not to have him throwing up. P: Continue current therapy, encourage ambulation, encourage incentive spirometry.
[2023-05-12 18:26] LABS: Albumin 2.1 g/dL (3.4-5.0); Bilirubin Total 3.2 mg/dL (0.2-1.0); Potassium 4.3 mEq/L (3.5-5.1); Protein, Total 5.7 g/dL (6.4-8.2)
--- NOTE | 2023-05-12 21:20 | CON ---
Date of Consultation: 05/12/2023 Chief Complaint: Acute kidney injury and hyperkalemia. Subjective: The patient is a 68-year-old man with history of hypertension, hyperlipidemia, sick sinu s syndrome, cirrhosis of liver, coronary artery disease, and adenocarcinoma of prostate. He presente d to emergency room because of abdominal pain. 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 He underwent TIPS procedure on April 08, 2023. The patient was complaining of severe abdominal pain. He decided to come to [facility] for evaluation of abdominal pain. He denies chest pain or palpitation. He had Todd c atheter placed for surgery and he underwent hernia surgery yesterday. Blood pressure was 158/76, hea rt rate 50, respiratory rate 16. CT scan of the abdomen was done with contrast and showed narrow nec k small bowel containing right inguinal hernia, recommended surgical consultation. Review of Systems: Constitutional: Currently, the patient is in ICU. He denies pain. Eyes: Denies new vision changes. Ears, Nose, Mouth, and Throat: Denies sore throat or earache. Respiratory: Denies chest pain or palpitation. GI: Denies nausea or vomiting. : Denies dysuria or hematuria, although he has some painful urination today. Had some difficulty voiding. All other systems reviewed and all are negative. Past Medical History: Hyperlipidemia, hypertension, sick sinus syndrome, cirrhosis of liver, coronar y artery disease, and adenocarcinoma of prostate. Social History: Denies tobacco, alcohol, and drugs. Family History: No kidney disease in the family. Physical Examination: General: The patient is awake, alert, follows commands. Eyes: Anicteric sclerae. EOMI. Ears, Nose, Mouth, and Throat: Oral mucosa moist. No pallor. Neck: Supple. No bruits. Lungs: Diminished breath sounds at bases. Heart: S1, S2. Abdomen: Soft. Extremities: No edema. Neurological: Moving extremities. Cranial nerves intact. Psychiatric: Alert and oriented x3. Normal affect. Laboratory Data: WBC 19.3, hemoglobin 10.5, hematocrit 32.1, platelet count is 152,000, neutrophils 86.7, lymphocytes 6.5. Sodium 136, potassium 6.2, chloride 105, CO2 of 22, BUN 21, creatinine 1.51, glucose 171. AST 58, ALT 39, albumin 2.5, total protein 7.1. Later blood work showed sodium 135, po tassium 4.3, chloride 107, CO2 of 24, BUN 19, creatinine 0.98, lactic acid 4.9, glucose 166, calcium 7.8, total bilirubin 3.2. AST 58, ALT 31, albumin 2.5. Impression And Plan: 1.Hyperkalemia, acute kidney injury. The patient had a bladder scan done, which showed postvoid uri nary retention of 200. The patient was started on Flomax. The patient had Todd catheter placed pos t surgery. Currently, he is voiding with some difficulties, although the patient will have bladder s can re-evaluated after Flomax is started. The patient may require Todd catheter if there is no impr ovement in postvoid bladder volume evaluation. 2.Hyperkalemia. The patient was treated medically for hyperkalemia and potassium level has improved . There is no evidence of significant metabolic acidosis. Likely hyperkalemia is related to bladder distention and mild case of obstructive uropathy. Renal ultrasound showed left kidney 13 cm and nor mal echotexture. Right kidney is not visualized due to overlying bowel gas. 3.Plan is to check UA and screen for urinary tract infection in this particular patient. Acute kidn ey injury due to prerenal azotemia. Renal function is already improving with adequate hydration. Av oid nephrotoxic medication. The patient cannot take nonsteroidal antiinflammatory medication. 4.The patient was medicated with IV dextrose and insulin for hyperkalemia. Monitor potassium level closely. Avoid high potassium foods. EB/MODL Voice ID: [id number] Report ID: [id number]
[2023-05-13] MEDS: NA CHLORIDE 0.9% 1,000 ML IV SCH ×4 (02:29→20:15)
[2023-05-13] MEDS ORDERED: NA CHLORIDE 0.9% 1,000 ML ONE (02:40)
[2023-05-13 03:03] LABS: Specific Gravity 1.025 (1.005-1.030); Urine Bacteria None Seen /HPF (<20); Urine Bilirubin NEGATIVE (Negative); Urine Blood Negative (Negative); Urine Clarity Clear (Clear); Urine Color Yellow (Yellow); Urine Glucose NEGATIVE (Negative); Urine Protein NEGATIVE (Negative); Urine RBC <5 /HPF (None Seen); Urine Urobilinogen Normal (Normal); Urine pH 5.5 (5.0-7.0)
[2023-05-13] MEDS: PIPER TAZO 3.375 GM in NA CHLORIDE 0.9% 100 ML IV SCH ×4 (04:55→20:00)
[2023-05-13 05:26] LABS: Absolute Lymphocytes (CBC) 1.1 K/uL (0.7-4.9); Hematocrit 22.4 % (39.6-49.0); Lymphocytes % 13.2 % (15.3-44.8); MCV 95.6 fL (80-100); MPV 9.4 fL (7.6-11.3); Platelets 66 thou/uL (152-406); RBC Red Blood Cell Count 2.34 M/uL (4.33-5.43)
[2023-05-13 05:32] LABS: Protime INR 2.39
[2023-05-13 05:45] LABS: Albumin 2.2 g/dL (3.4-5.0); Bilirubin Total 3.2 mg/dL (0.2-1.0); Magnesium 1.5 mg/dL (1.6-2.4); Protein, Total 5.7 g/dL (6.4-8.2)
--- NOTE | 2023-05-13 07:05 | P.PN ---
Date of Service: 05/13/23 Subjective: Abdomen feels sore; slowly improving 1.2L voided yesterday per I/O documentation 05/13 patient reports GI bleed ~1 month ago; states before TIPS procedure on 04/08/23 1 uPRBC ordered today no BM, +flatus afebrile ecchymosis of abdominal wall ROS: 10 point ROS as noted above, otherwise negative Physical Exam: GEN: Alert, orientedx3, NAD HEENT: Normal conjunctiva, scleral anicteric CV: Regular rate and rhythm (paced), trace pedal edema Pulm: Non-labored respirations on room air, clear bilaterally ABD: Soft, mild abdominal tenderness, with ecchymosis surrounding surgical incisions Neuro: Normal speech, normal affect vitals reviewed Problem List: Incarcerated right inguinal hernia, now s/p lap reduction and repair of incarcerated right inguinal hernia (05/11) Lactic acidosis acute blood loss anemia h/o reported GI bleed (~1 month ago) ARNEL, prerenal; resolved Hyperkalemia, resolved Cirrhosis of liver -ANGUIANO (on transplant list) h/o carotid artery stenosis s/p stent (summer 2022) h/o CAD s/p stents Hypertension Hyperlipidemia h/o prostate cancer Incarcerated right inguinal hernia, now s/p lap reduction and repair of incarcerated right inguinal hernia (05/11) Lactic acidosis acute blood loss anemia h/o reported GI bleed (~1 month ago) Admitted to ICU CT abdomen (05/11): Incarcerated right inguinal hernia General surgery consulted- Dr. Funez s/p lap reduction and repair of incarcerated right inguinal hernia (05/11) serial abdominal exams continue empiric zosyn (05/12-) PRN analgesics/antiemetics lactic acid 6.8 -> 4.9 (05/12); continue to monitor patient does not appear toxic / septic. suspect lactic acidosis more secondary to reperfusion of incarcerated intestines given patient's liver disease, arnel, surgery, lactic acidosis, overall perioperative morbidity/mortality risk, Burn Table Operator - Dr. Arias consulted Encourage incentive spirometry; PRN nebs hold IV fluids H&H downtrending. 10.5 -> 7.4 -> 7.3 suspect 10.5 false read secondary to dehydration; probably closer to high 7s/low 8s 05/13 patient reports GI bleed ~1 month ago, new info; states before TIPS procedure on 04/08/23 Monitor H&H closely. Transfuse for hgb < 7 1 uPRBC ordered 05/13 ARNEL, prerenal; resolved Hyperkalemia, resolved Nephrology consulted decrease IVF 05/12 nurses report low UOP; ~20 ml emptied Patient reports minimal PO intake; +received 250 ml NS bolus in ED suspect dehydration; likely prerenal state but will check PVR to r/o other etiologies renal u/s ordered (05/12): unremarkable left renal ultrasound. right kidney not seen secondary to bowel gas Monitor renal function voided 1.2L yesterday improving Cirrhosis of liver -ANGUIANO (on transplant list) h/o carotid artery stenosis s/p stent (summer 2022) Patient with a history of chronic liver failure; currently on the transplant list. based on admission labs, which reportedly are near/at baseline: MELD: 21 Child-Biswas: Class C patient high risk of morbidity/mortality, especially perioperatively of abdominal surgeries admitted here for urgent hernia repair due to delay / denial of transfer to [facility] (at capacity), and [facility] general surgeon [facility] community health education coordinator Talya retana Leonidas telephone #[phone] s/p recent TIPS 04/08/23 Tbili improving; 4.8 -> 3.2; LFTs ok /improved INR worsening recent carotid artery stenting 12/2022 will monitor closely monitor while on antibiotics, zosyn with risk of cholestatic injury h/o CAD s/p stents Hypertension Hyperlipidemia h/o prostate cancer confirm home medications, restart as appropriate VTE: SCD Code: Full Dispo: Home Pending further improvement, hgb stabilizes ~1-2 days Continue ICU level of care for now, downgrade within 24-48hrs
[2023-05-13 07:08] LABS: MCV 96.1 fL (80-100); MPV 9.3 fL (7.6-11.3); Platelets 61 thou/uL (152-406); RBC Red Blood Cell Count 2.29 M/uL (4.33-5.43)
[2023-05-13 08:00] LABS: Blood Morphology Comment NOT SEEN (NOT SEEN); Platelet Estimate DECR; White Blood Cell Scan OK (OK)
[2023-05-13] MEDS ORDERED: Magnesium Sulfate 2gm IVPB 2 G/50 ML BAG IV ONE (08:05)
[2023-05-13] MEDS: TAMSULOSIN 0.4 MG SR CAP PO SCH (10:44)
[2023-05-13 11:19] LABS: Hematocrit 21.6 % (39.6-49.0); MCV 95.8 fL (80-100); MPV 9.2 fL (7.6-11.3); Platelets 60 thou/uL (152-406); RBC Red Blood Cell Count 2.26 M/uL (4.33-5.43)
[2023-05-13] MEDS ORDERED: VITAMIN K (ADULT) 10 MG/ML SQ ONE (12:00)
--- NOTE | 2023-05-13 12:00 | P.CNS ---
Date of Consult: 05/13/23 Reason for Consult: Possible sepsis elevated lactic acid Chief Complaint: Abdominnal Pain, Inguinl hernia, liver failure History of Present Illness: Patient is 68 years of age admitted with incarcerated inguinal hernia secondly went an operation He has some discomfort from the recent surgery denies any pulmonary complaints no shortness of breath or cough/history of cirrhosis of the liver secondary to [place] awaiting liver transplant Allergies Sulfa (Sulfonamide Antibiotics) Allergy (Verified 05/11/23 17:10) Rash Home Medications: Amiloride HCl [Midamor] 20 mg PO DAILY 05/11/23 Cholecalciferol (Vitamin D3) [Vitamin D 5,000 Iu Cap] 5,000 unit PO DAILY 05/11/23 Clopidogrel Bisulfate [Plavix] 75 mg PO DAILY 05/11/23 Furosemide 40 mg PO BIDL 05/11/23 Lactulose 20 gm PO TID 05/11/23 Levothyroxine [Synthroid] 75 mcg PO [id number] 05/11/23 Pantoprazole [Protonix Tab*] 40 mg PO BID 05/11/23 Perservision Areds-2 1 tab PO DAILY 05/11/23 Propranolol [Inderal] 10 mg PO BID 05/11/23 Temazepam [Restoril] 7.5 mg PO BEDTIME 05/11/23 Tramadol HCl [Ultram] 50 mg PO PRN 05/11/23 Zifoxan 550 mg PO BID 05/11/23 Zinc Sulfate 220 mg PO NOON 05/11/23 - Past Medical/Surgical History Diabetic: No -: HTN, CAD, HLD - Social History Alcohol use: No CD- Drugs: No Caffeine use: No Place of Residence: Home Review of Systems 10-point ROS is otherwise unremarkable Gastrointestinal: Abdominal Pain Physical Examination Temp Pulse Resp BP Pulse Ox 97.3 F 65 13 122/59 L 97 05/13/23 08:00 05/13/23 11:00 05/13/23 11:00 05/13/23 11:00 05/13/23 11:00 General: Alert, Oriented x3 Respiratory: Clear to auscultation bilaterally Cardiovascular: No edema, Regular rate/rhythm, Normal S1 S2 Gastrointestinal: Normal bowel sounds, Soft and benign - Problems (1) Cirrhosis of liver Current Visit: Yes Status: Acute Plan: Patient is 68 years of age admitted with incarcerated inguinal hernia no pulmonary complaints elevated lactic acid I suspect is from due to underlying cirrhosis some abdominal discomfort there is slight decline in his hemoglobin patient is auto anticoagulated 1 dose of vitamin K subcu patient is renal func tion is now normal has some electrolyte imbalance that needs to be addressed otherwise vital signs are all stable
[2023-05-13] MEDS ORDERED: NA CHLORIDE 0.9% 250 ML ONE (12:34)
[2023-05-13] MEDS ORDERED: ALBUTEROL 2.5 MG/3 ML NEB SOL NEB PRN (15:00)
[2023-05-13 18:09] LABS: Hematocrit 26.8 % (39.6-49.0)
--- NOTE | 2023-05-13 20:53 | PN ---
Date of Progress Note: 05/13/2023 Chief Complaint: Acute kidney injury associated with hyperkalemia and decreased urine output. Subjective: Patient is a 68-year-old man with history of hypertension, hyperlipidemia, sick sinus sy ndrome, cirrhosis of liver, coronary artery disease, adenocarcinoma of prostate. [facility]. Patient reported a history of liver failure, chronic liver di sease. He underwent TIPS procedure on April 08, 2023. He came with severe abdominal pain and he underwent hernia surgery. He remains hemodynamically stable. CT scan of the abdomen and pelvis was done with contrast showed narrow neck small bowel containing right inguinal hernia and surgical cons ultation was requested for surgery. Patient is hemodynamically stable. Urine output has improved. Patient had lower urinary tract symptoms after Todd catheter was removed. Patient had a Todd mario ter placed for surgery. Patient is on Flomax. Urine output has improved and the patient denies bello turia or dysuria. Review of Systems: Denies chest pain, palpitation. Physical Examination: Lungs: Clear to auscultation bilaterally. Heart: S1, S2. Abdomen: Soft, benign. Extremities: No edema. Laboratory Data: BUN was 21, creatinine 1.51, potassium 6.2, chloride 105, total CO2 22, glucose 171 and potassium improved to 4.3, creatinine level was 0.98. Impression And Plan: 1.Hyperkalemia, acute kidney injury. Patient had bladder scan done which showed postvoid urinary re tention of 200. The patient was started on Flomax. The patient had a Todd catheter placed post mitchell sharath. Currently, he is voiding with some difficulties, although plan is to continue Flomax and monit or bladder scan. Renal function has improved. 2.Elevated lactic acid likely secondary to liver cirrhosis. Monitor lab work and renal panel. 3.Hyperkalemia, resolved. The patient was treated medically for hyperkalemia and potassium level harrison s improved. There was no significant metabolic acidosis. Likely hyperkalemia was related to bladder distention and mild case of obstructive uropathy. Renal ultrasound showed left kidney 13 cm with no rmal echotexture. Right kidney was not visualized due to overlying bowel gas. 4.Plan is to check UA and screen for urinary tract infection in this particular patient. Acute kidn ey injury due to prerenal azotemia. Patient although has an underlying history of liver failure and plan is to continue IV fluids and to wean him off IV fluids as he is starting p.o. intake. EB/MODL Voice ID: [id number] Report ID: [id number]
[2023-05-13] MEDS: DIAZEPAM 5 MG TABLET PO PRN (21:22)
[2023-05-14] MEDS: PIPER TAZO 3.375 GM in NA CHLORIDE 0.9% 100 ML IV SCH ×3 (02:22→18:21)
[2023-05-14 06:42] LABS: Protime INR 1.93
[2023-05-14 06:43] LABS: Absolute Lymphocytes (CBC) 0.7 K/uL (0.7-4.9); Hematocrit 24.9 % (39.6-49.0); Lymphocytes % 7.8 % (15.3-44.8); MCV 94.6 fL (80-100); MPV 9.2 fL (7.6-11.3); Platelets 73 thou/uL (152-406); RBC Red Blood Cell Count 2.64 M/uL (4.33-5.43)
[2023-05-14 06:51] LABS: Albumin 2.3 g/dL (3.4-5.0); Bilirubin Total 3.7 mg/dL (0.2-1.0); Magnesium 1.8 mg/dL (1.6-2.4); Phosphorus 1.6 mg/dL (2.5-4.9); Potassium 3.7 mEq/L (3.5-5.1); Protein, Total 6.3 g/dL (6.4-8.2)
[2023-05-14] MEDS ORDERED: POTASSIUM PHOS IN 0.9 % NACL 15 MMOL/250 ML BAG IV ONE (07:41)
[2023-05-14] MEDS ORDERED: MAGNESIUM SULFATE 1 gm IVPB 1 GM/100 ML BAG IV ONE ×2 (07:42→11:00)
[2023-05-14] MEDS: TAMSULOSIN 0.4 MG SR CAP PO SCH (08:32)
--- NOTE | 2023-05-14 13:01 | P.PN ---
Subjective Date of Service: 05/14/23 Chief Complaint: Abdominnal Pain, Inguinl hernia, liver failure Patient has no new complaint. He states his pain is well controlled. He has been tolerating liquid diet. He has been out of bed. Physical Examination - Vital Signs Temperature: 98.2 F Blood Pressure: 133/55 Pulse: 84 Respirations: 16 Pulse Ox (%): 100 Assessment And Plan - Plan Physical Exam: GEN: Alert, orientedx3, NAD HEENT: Scleral anicteric CV: Regular rate and rhythm (paced), trace pedal edema Pulm: clear to auscultation bilaterally, adequate breath sounds bilaterally. ABD: Soft, mild abdominal tenderness, with ecchymosis surrounding trocar incisions Neuro: Normal speech, normal affect vitals reviewed Problem List: Incarcerated right inguinal hernia, now s/p lap reduction and repair of incarcerated right inguinal hernia (05/11) Lactic acidosis acute blood loss anemia h/o reported GI bleed (~1 month ago) ARNEL, prerenal; resolved Hyperkalemia, resolved Cirrhosis of liver -ANGUIANO (on transplant list) h/o carotid artery stenosis s/p stent (summer 2022) h/o CAD s/p stents Hypertension Hyperlipidemia h/o prostate cancer Incarcerated right inguinal hernia, now s/p lap reduction and repair of incarcerated right inguinal hernia (05/11) Lactic acidosis acute blood loss anemia h/o reported GI bleed (~1 month ago) CT abdomen (05/11): Incarcerated right inguinal hernia General surgery consulted- Dr. Funez s/p laparoscopic reduction and repair of incarcerated right inguinal hernia (05/11) On empiric zosyn (05/12-) PRN analgesics/antiemetics lactic acid 6.8 -> 4.9 (05/12); likely related to liver cirrhosis. Encourage incentive spirometry; PRN nebs Status post 1 unit PRBC transfusion Monitor H&H closely. Transfuse PRBC for hgb < 7 ARNEL, prerenal; resolved Hyperkalemia, resolved Nephrology consulted Status post IV fluid renal u/s ordered (05/12): unremarkable left renal ultrasound. right kidney not seen secondary to bowel gas. Monitor renal function Cirrhosis of liver -ANGUIANO (on transplant list) h/o carotid artery stenosis s/p stent (summer 2022) Patient with a history of chronic liver failure; currently on the transplant list. based on admission labs, which reportedly are near/at baseline: MELD: 21 Child-Biswas: Class C patient high risk of morbidity/mortality, especially perioperatively of abdominal surgeries admitted here for urgent hernia repair due to delay / denial of transfer to [facility] (at capacity), and [facility] general surgeon [facility] shift coordinator Talya Lauren telephone #[phone] s/p recent TIPS 04/08/23 Tbili improved recent carotid artery stenting 12/2022 h/o CAD s/p stents Hypertension Hyperlipidemia h/o prostate cancer Continue home medications. VTE: SCD Code: Full Dispo: Home
--- NOTE | 2023-05-14 13:19 | PN ---
Date of Progress Note: 05/14/2023 Subjective: Patient was admitted with acute kidney injury and acidosis with obstructive uropathy, hydronephrosis. Patient had Todd. Patient had prolonged INR. Patient on transplant list. Physical Examination: Vital Signs: Blood pressure 145/62, pulse of 66, afebrile. Patient had good urine output, voiding 1500, positive of 2300. Chest: Clear to auscultation. Heart: S1, S2, regular. Abdomen: Soft, nontender. Extremities: No edema. Neurologic: Alert. No focality. Laboratory Data: WBC 9.2, hemoglobin 8.5. Sodium 136, potassium 3.7, bicarb 24, BUN 11, creatinine 0.8, calcium 8.2. Phosphorus 1.6, magnesium 1.8. Current Medications: The patient is on include Zosyn, IV fluid 30 per hour. Assessment And Plan: 1. Acute kidney injury secondary to prerenal/obstructive uropathy. Continue to recover, resolve. 2. Acidosis secondary to lactic acidosis, resolved. 3. Hyperkalemia secondary to renal failure. Currently, potassium normalized. In fact, slightly on the lower side. We will supplement. 4. Hypophosphatemia, hypokalemia secondary to malnourished. We will supplement. 5. Hypomagnesemia with the presence of hypokalemia. I will supplement. time spent examining the patient [id number] reviewing that her lab and the radiology placing order discussing the case with the patient discussing the case with the juice bar team member including hospitalists and nursing staff more than 35 minutes DESTINEY Voice ID: [id number] Report ID: [id number] JOSE J
[2023-05-14] MEDS ORDERED: MINERAL OIL 30 ML UCUP PO ONE ×2 (14:47→14:56)
--- NOTE | 2023-05-14 14:56 | P.PN ---
Date of Service: 05/14/23 S: Patient looks very well today, no specific complaints. Anxious to get to the regular floor as he like to walk around more. O: Vital signs are stable, incisions are clean, still has some bruising as expected. Was given 1 unit of blood, with a rise in H&H which appears to be stable at the moment. Clinically the patient is much improved since we initially met. A: Surgically stable P: There was a possibility patient be transferred to another facility. We will continue to do our normal postoperative care. He is going to be transferred to the floor, we will encourage ambulation, incentive spirometry, the patient may shower and change dressings as needed. The patient continues to do very well, is in good spirits, anticipates discharge soon.
[2023-05-14] MEDS: DIAZEPAM 5 MG TABLET PO PRN (23:18)
[2023-05-15] MEDS: PIPER TAZO 3.375 GM in NA CHLORIDE 0.9% 100 ML IV SCH ×3 (02:01→17:02)
[2023-05-15] MEDS: TAMSULOSIN 0.4 MG SR CAP PO SCH (07:55)
[2023-05-15 09:33] LABS: Potassium 3.4 mEq/L (3.5-5.1)
[2023-05-15] MEDS ORDERED: POTASSIUM CL SA 10 MEQ TAB PO ONE ×2 (10:00→12:00)
--- NOTE | 2023-05-15 12:32 | PN ---
Date of Progress Note: 05/15/2023 Subjective: The patient was admitted to the hospital with acute kidney injury. Patient was hydrated very well. His acute kidney injury was prerenal, recovered very well. Acidosis has been resolved and hyperkalemia resolved. Kidney function back to baseline. Physical Examination: Vital Signs: When I saw the patient; blood pressure 111/60, pulse of 60, afebrile. Chest: Clear to auscultation. Heart: S1, S2. Regular. Abdomen: Minimal ascites, scrotal swelling. Extremity: Trace edema. Neurologic: Alert. No focality. Laboratory Data: Hemoglobin 8.5, sodium 137, potassium 3.4, bicarb 25, BUN 8, creatinine 0.7, calcium 8.3, phosphorus 1.6, magnesium of 2. Albumin 2.3, corrected calcium is 9.5. Current Medications: The patient on include Zosyn, Flomax, Zofran. Assessment And Plan: 1. Acute kidney injury secondary to prerenal/hepatorenal, recovered, resolved. Currently looked to me on the over volume side. I am going to give the patient Lasix to establish better volume control and we will follow up the patient. 2. Hypertension, controlled optimal. Continue current treatment. 3. Obstructive uropathy. Continue Flomax. 4. Hypokalemia. We will supplement. 5. Cirrhosis. Patient active on transplant list. We will follow up with primary. 6. Hypomagnesemia, status post supplement, recovered, resolved. time spent examining the patient [id number] reviewing that her lab and the radiology placing order discussing the case with the patient discussing the case with the sales team leader including hospitalists and nursing staff more than 35 minutes DESTINEY Voice ID: [id number] Report ID: [id number] JOSE J
[2023-05-15] MEDS: FUROSEMIDE 40 MG/4 ML VIAL IV SCH (12:44)
--- NOTE | 2023-05-15 16:57 | P.PN ---
Subjective Date of Service: 05/15/23 Chief Complaint: Abdominnal Pain, Inguinl hernia, liver failure Patient has no new complaint. He states he feels much better today. He has been tolerating liquid diet. He reports bowel movements this morning. Physical Examination - Vital Signs Temperature: 97.9 F Blood Pressure: 115/61 Pulse: 67 Respirations: 16 Pulse Ox (%): 96 Assessment And Plan - Plan Physical Exam: GEN: Alert, orientedx3, NAD HEENT: Scleral anicteric CV: Regular rate and rhythm (paced), trace pedal edema Pulm: clear to auscultation bilaterally, adequate breath sounds bilaterally. ABD: Soft, mild abdominal tenderness, ecchymosis surrounding trocar incisions and scrotum Neuro: Normal speech, normal affect, no focal motor deficit. vitals reviewed Problem List: Incarcerated right inguinal hernia, now s/p lap reduction and repair of incarcerated right inguinal hernia (05/11) Lactic acidosis acute blood loss anemia h/o reported GI bleed (~1 month ago) ARNEL, prerenal; resolved Hyperkalemia, resolved Cirrhosis of liver -ANGUIANO (on transplant list) h/o carotid artery stenosis s/p stent (summer 2022) h/o CAD s/p stents Hypertension Hyperlipidemia h/o prostate cancer Incarcerated right inguinal hernia, now s/p lap reduction and repair of i ncarcerated right inguinal hernia (05/11) Lactic acidosis Acute blood loss anemia h/o reported GI bleed (~1 month ago) CT abdomen (05/11): Incarcerated right inguinal hernia Seen by general surgery Dr. Funez s/p laparoscopic reduction and repair of incarcerated right inguinal hernia (05/11) On empiric zosyn (05/12-) PRN analgesics/antiemetics lactic acid 6.8 -> 4.9 (05/12); likely related to liver cirrhosis. Encourage incentive spirometry; PRN nebs. Bowel movements today (05/15) Status post 1 unit PRBC transfusion Monitor H&H closely. Transfuse PRBC for hgb < 7 Dr. Funez to follow for diet advancement. Activity as tolerated. ARNEL, prerenal; resolved Hyperkalemia, resolved Nephrology consulted Status post IV fluid renal u/s ordered (05/12): unremarkable left renal ultrasound. right kidney not seen secondary to bowel gas. Monitor renal function Cirrhosis of liver -ANGUIANO (on transplant list) h/o carotid artery stenosis s/p stent (summer 2022) Patient with a history of chronic liver failure; currently on the transplant list. based on admission labs, which reportedly are near/at baseline: MELD: 21 Child-Biswas: Class C patient with high risk of morbidity/mortality. admitted here for urgent hernia repair due to delay / denial of transfer to [facility] (at capacity), and [facility] general surgeon [facility] digital asset coordinator Talya Lauren telephone #[phone] s/p recent TIPS 04/08/23 Recent carotid artery stenting 12/2022 Stable. h/o CAD s/p stents Hypertension Hyperlipidemia h/o prostate cancer Continue home medications. VTE: SCD Code: Full Dispo: Home
[2023-05-15] MEDS ORDERED: POLYETHYL GLY 3350 17 GM/DOSE PO PRN (16:59)
[2023-05-15] MEDS: DIAZEPAM 5 MG TABLET PO PRN (22:15)
[2023-05-16] MEDS: PIPER TAZO 3.375 GM in NA CHLORIDE 0.9% 100 ML IV SCH ×3 (02:00→20:37)
[2023-05-16] MEDS: TAMSULOSIN 0.4 MG SR CAP PO SCH (07:52)
[2023-05-16] MEDS: FUROSEMIDE 40 MG/4 ML VIAL IV SCH ×2 (09:07→19:45)
[2023-05-16] MEDS: TRAMADOL HCL 50 MG TAB PO PRN (11:11)
[2023-05-16 11:41] LABS: Absolute Lymphocytes (CBC) 0.7 K/uL (0.7-4.9); Hematocrit 28.9 % (39.6-49.0); Lymphocytes % 12.3 % (15.3-44.8); MCV 95.7 fL (80-100); MPV 8.4 fL (7.6-11.3); Platelets 73 thou/uL (152-406); RBC Red Blood Cell Count 3.02 M/uL (4.33-5.43)
[2023-05-16 11:46] LABS: Protime INR 2.02
[2023-05-16 11:59] LABS: Albumin 2.1 g/dL (3.4-5.0); Bilirubin Total 4.2 mg/dL (0.2-1.0); Potassium 3.2 mEq/L (3.5-5.1); Protein, Total 5.8 g/dL (6.4-8.2)
[2023-05-16] MEDS ORDERED: SPIRONOLACTONE 25 MG TABLET PO SCH (13:00)
--- NOTE | 2023-05-16 14:50 | PN ---
Date of Progress Note: 05/16/2023 Subjective: Patient was admitted with acute kidney injury secondary to prerenal. Patient recovered back to baseline. Patient had significant scrotal swelling. Patient resumed diuresis yesterday. Physical Examination: Vital Signs: Blood pressure 141/67, pulse of 63, afebrile. Chest: Clear to auscultation. Heart: S1, S2. Systolic murmur. Abdomen: Ascites with scrotal swelling. Extremity: Plus edema. Neuro: No focality. Laboratory Data: Sodium 136, potassium 3.2, bicarb 26, BUN 8, creatinine 0.8, calcium 7.6. Phosphor us not done. Current Medications: The patient is on include: 1.Diazepam. 2.Albuterol. 3.Flomax. 4.Lasix 40 daily. Assessment And Plan: 1.Acute kidney injury secondary to prerenal, recovered, resolved. 2.Anasarca secondary to liver failure. I am going to send for protein, creatinine, and TSH and we w ill monitor. 3.Hyperkalemia, resolved. Currently hypokalemic. I am going to send the patient for protein, creat inine and we will start the patient on spironolactone and we will follow up. 4.Hypertension, controlled. We will utilize blood pressure for more diuresis as above. Continue La six and add spironolactone. DESTINEY Voice ID: [id number] Report ID: [id number]
--- NOTE | 2023-05-16 14:59 | P.PN ---
Date of Service: 05/16/23 S: Patient is up ambulating, feels much better. Still having some pain in the operative site and down into his testicles. Also concerned about the amount of bruising that area. O: Vital signs are stable, abdomen is soft, surgical incisions are clean. Has obvious bruising on his anterior abdominal wall. He has obvious hematomas down into his scrotum's consistent with the procedure done. Clinically however he has a strong repair that appears to be intact A: Surgical standpoint patient is doing quite well. Has a bruising that we had explained to the patient prior to his surgery that would be be appearing. He was able to void on his own, has been having bowel movements, and is tolerating a diet. Good effort on his incentive spirometry. P: Patient will be discharged when medically stable. He can follow-up with me in my office next Saturday. Should he have any questions or problems, he may return to the emergency room, or contact me.
--- NOTE | 2023-05-16 15:18 | P.PN ---
Subjective Date of Service: 05/16/23 Chief Complaint: Abdominnal Pain, Inguinl hernia, liver failure Patient is complaining of scrotal swelling worsening otherwise he states she feels better. He is ambulatory. He has been tolerating liquid diet. He reports bowel movement today. Physical Examination - Vital Signs Temperature: 99.7 F Blood Pressure: 141/67 Pulse: 63 Respirations: 16 Pulse Ox (%): 98 Assessment And Plan - Plan Physical Exam: GEN: Alert, orientedx3, NAD HEENT: Scleral anicteric CV: Regular rate and rhythm (paced), trace pedal edema Pulm: clear to auscultation bilaterally, adequate breath sounds bilaterally. ABD: Soft, mild abdominal tenderness, ecchymosis surrounding trocar incisions and scrotum Neuro: Normal speech, normal affect, no focal motor deficit. vitals reviewed Problem List: Incarcerated right inguinal hernia, now s/p lap reduction and repair of incarcerated right inguinal hernia (05/11) Lactic acidosis acute blood loss anemia h/o reported GI bleed (~1 month ago) ARNEL, prerenal; resolved Hyperkalemia, resolved Cirrhosis of liver -ANGUIANO (on transplant list) h/o carotid artery stenosis s/p stent (summer 2022) h/o CAD s/p stents Hypertension Hyperlipidemia h/o prostate cancer Incarcerated right inguinal hernia, now s/p lap reduction and repair of incarcerated right inguinal hernia (05/11) Lactic acidosis Acute blood loss anemia h/o reported GI bleed (~1 month ago) CT abdomen (05/11): Incarcerated right inguinal hernia Seen by general surgery Dr. Funez s/p laparoscopic reduction and repair of incarcerated right inguinal hernia (05/11) On empiric zosyn (05/12-) PRN analgesics/antiemetics lactic acid 6.8 -> 4.9 (05/12); likely related to liver cirrhosis. Encourage incentive spirometry; PRN nebs. Bowel movements today (05/15) Status post 1 unit PRBC transfusion Monitor H&H closely. Transfuse PRBC for hgb < [address] Funez. Activity as tolerated. ARNEL, prerenal; resolved Hyperkalemia, resolved Nephrology consulted Status post IV fluid renal u/s ordered (05/12): unremarkable left renal ultrasound. right kidney not seen secondary to bowel gas. Monitor renal function IV Lasix increased to 40 mg twice daily due to increasing scrotal edema. Cirrhosis of liver -ANGUIANO (on transplant list) h/o carotid artery stenosis s/p stent (summer 2022) Patient with a history of chronic liver failure; currently on the transplant list. based on admission labs, which reportedly are near/at baseline: MELD: 21 Child-Biswas: Class C patient with high risk of morbidity/mortality. admitted here for urgent hernia repair due to delay / denial of transfer to [facility] (at capacity), and [facility] general surgeon [facility] multi share program coordinator Talya Lauren telephone #[phone] s/p recent TIPS 04/08/23 Recent carotid artery stenting 12/2022 Stable. Increased Aldactone to 50 mg daily Resumed rifaximin and lactulose. h/o CAD s/p stents Hypertension Hyperlipidemia h/o prostate cancer Continue home medications. VTE: SCD Code: Full Dispo: Possible discharge to Home in a.m.
[2023-05-16] MEDS ORDERED: POTASSIUM CL SA 10 MEQ TAB PO ONE (16:06)
[2023-05-16] MEDS: PROPRANOLOL HCL 10 MG TAB PO SCH (19:45)
[2023-05-16] MEDS: LACTULOSE 20 GM/30 ML UCUP PO SCH (19:45)
[2023-05-16] MEDS: RIFAXIMIN 550 MG PO SCH (20:29)
[2023-05-16] MEDS: PANTOPRAZOLE 40MG TABLET PO SCH (20:38)
[2023-05-16] MEDS: DIAZEPAM 5 MG TABLET PO PRN (22:05)
[2023-05-17] MEDS: PIPER TAZO 3.375 GM in NA CHLORIDE 0.9% 100 ML IV SCH (03:09)
[2023-05-17 04:52] LABS: Protime INR 2.15
[2023-05-17 05:08] VITALS: BMI 23.6
[2023-05-17 05:26] LABS: Thyroid Stimulating Hormone 2.2 uIU/mL (0.358-3.740)
[2023-05-17 06:00] LABS: UR PROTEIN 16.2 mg/dL (<11.9); Urine Protein/Creatinine Ratio 0.11 ratio (<0.15)
[2023-05-17] MEDS ORDERED: LEVOTHYROXINE SOD 0.075 MG TAB PO SCH (06:00)
[2023-05-17 07:17] LABS: Magnesium 1.5 mg/dL (1.6-2.4); Phosphorus 2.9 mg/dL (2.5-4.9); Potassium 3.5 mEq/L (3.5-5.1)
[2023-05-17] MEDS: FUROSEMIDE 40 MG/4 ML VIAL IV SCH (09:00)
[2023-05-17] MEDS: LACTULOSE 20 GM/30 ML UCUP PO SCH (09:00)
[2023-05-17] MEDS: PROPRANOLOL HCL 10 MG TAB PO SCH (09:00)
[2023-05-17] MEDS ORDERED: OCUVITE (VIT A,C & E/LUTEIN/MINERAL) TABLET PO SCH (09:00)
[2023-05-17] MEDS ORDERED: VITAMIN D 5,000 UNIT CAP PO SCH (09:00)
[2023-05-17] MEDS ORDERED: SPIRONOLACTONE 25 MG TABLET PO SCH (09:00)
[2023-05-17] MEDS: RIFAXIMIN 550 MG PO SCH (09:00)
[2023-05-17] MEDS: PANTOPRAZOLE 40MG TABLET PO SCH (09:36)
[2023-05-17] MEDS: TAMSULOSIN 0.4 MG SR CAP PO SCH (09:37)
[2023-05-17 10:08] VITALS: BP 115/64; TEMP 97.6
[2023-05-17 10:15] VITALS: O2SAT 97
--- NOTE | 2023-05-17 10:51 | P.DS ---
Admission Date: 05/11/23 Discharge Date: 05/17/23 Disposition: ROUTINE DISCHARGE Discharge Condition: FAIR Reason for Admission: Abdominal Pain, Inguinl hernia, liver failure Brief History of Present Illness: Mr. Mullen 68-year-old male with primary history of hypertension, hyperlipidemia, sick sinus syndrome, cirrhosis of liver, CAD, adenocarcinoma of prostate presented to the emergency room via wheelchair with complaints of abdominal pain. Patient's reports that patient is on a liver transplant list and has known to have inguinal hernia that they have been monitoring. Patient with complicated medical history, has chronic liver failure, TIPs procedure on April 08, 2023 . Patient reported his inguinal hernia became larger and became more painful. He denied chest pain, palpitation but endorsed nausea. ED course: Blood pressure 158/76, pulse 50, respirations 16, temperature 97.6, pulse ox 100% on room air Patient was given analgesics and antiemetics Labs significant for elevated lactic acid 2.4, elevated bilirubin 3.47, elevated hepatic panel AST 71 ALT 50 lipase 105, CT abdomen and pelvis: With contrast showed narrow neck small bowel containing right inguinal hernia. Surgical consultation recommended. Patient is admitted to the hospital for further management. Hospital Course: Problem List: Incarcerated right inguinal hernia, now s/p lap reduction and repair of incarcerated right inguinal hernia (05/11) Lactic acidosis acute blood loss anemia h/o reported GI bleed (~1 month ago) ARNEL, prerenal; resolved Hyperkalemia, resolved Cirrhosis of liver -ANGUIANO (on transplant list) h/o carotid artery stenosis s/p stent (summer 2022) h/o CAD s/p stents Hypertension Hyperlipidemia h/o prostate cancer Incarcerated right inguinal hernia, now s/p lap reduction and repair of incarcerated right inguinal hernia (05/11) Lactic acidosis Acute blood loss anemia h/o reported GI bleed (~1 month ago) CT abdomen (05/11): Incarcerated right inguinal hernia Seen by general surgery Dr. Monson s/p laparoscopic reduction and repair of incarcerated right inguinal hernia (05/11) Treated empirically with zosyn (05/12-) managed with PRN analgesics/antiemetics lactic acid 6.8 -> 4.9 (05/12); likely related to liver cirrhosis. Encourage incentive spirometry; PRN nebs. Patient had multiple bowel movements after surgery. Status post 1 unit PRBC transfusion Hemoglobin remained relatively stable after blood transfusion. Diet advanced to soft consistency which he tolerated Patient has also been ambulatory. Patient deemed stable for discharge per Surgery. ARNEL, prerenal; resolved Hyperkalemia, resolved Nephrology consulted Patient treated with IV fluid. renal u/s ordered (05/12): unremarkable left renal ultrasound. right kidney not seen secondary to bowel gas. Monitor renal function He was also treated with IV Lasix for edema. Cirrhosis of liver -ANGUIANO (on transplant list) h/o carotid artery stenosis s/p stent (summer 2022) Patient with a history of chronic liver failure; currently on the transplant list. based on admission labs, which reportedly are near/at baseline: MELD: 21 Child-Biswas: Class C patient with high risk of morbidity/mortality. admitted here for urgent hernia repair due to delay / denial of transfer to [facility] (at capacity), and [facility] general surgeon [facility] client service coordinator Talya retana Leonidas telephone #[phone] s/p recent TIPS 04/08/23 Recent carotid artery stenting 12/2022 Stable. Increased Aldactone to 50 mg daily Resumed rifaximin and lactulose. Resumed Lasix maintainance dose on discharge h/o CAD s/p stents Hypertension Hyperlipidemia h/o prostate cancer Continued home medications. Held Plavix due to coagulopathy, scrotal hematoma and increased skin bruising. Vital Signs/Physical Exam: Temp Pulse Resp BP Pulse Ox 97.6 F 65 14 115/64 97 05/17/23 08:00 05/17/23 08:00 05/17/23 08:00 05/17/23 08:00 05/17/23 08:00 General: Alert, In no apparent distress, Oriented x3 HEENT: Mucous membr. moist/pink Neck: JVD not distended Respiratory: Clear to auscultation bilaterally, Normal air movement Cardiovascular: Regular rate/rhythm, Normal S1 S2, Edema (Scrotal) Gastrointestinal: Soft and benign, Non-distended Musculoskeletal: No swelling Integumentary: No cyanosis, Other (Bruising of whole scrotum, around trocar wounds on the abdomen.) Neurological: Normal strength at 5/5 x4 extr, Cranial nerves 3-12 intact Laboratory Data at Discharge: WBC 5.80 thou/uL (4.3-10.9) 05/16/23 11:32 Hgb 9.7 g/dL (13.6-17.9) L 05/16/23 11:32 Hct 28.9 % (39.6-49.0) L 05/16/23 11:32 Plt Count 73 thou/uL (152-406) L 05/16/23 11:32 PT 23.7 SECONDS (9.5-12.5) H 05/17/23 03:57 INR 2.15 05/17/23 03:57 Sodium Cancelled 05/17/23 06:00 Potassium Cancelled 05/17/23 06:00 BUN Cancelled 05/17/23 06:00 Creatinine Cancelled 05/17/23 06:00 Glucose Cancelled 05/17/23 06:00 Phosphorus Cancelled 05/17/23 06:00 Magnesium Cancelled 05/17/23 06:00 Total Bilirubin 4.2 mg/dL (0.2-1.0) H 05/16/23 11:32 AST 59 U/L (15-37) H 05/16/23 11:32 ALT 37 U/L (16-61) 05/16/23 11:32 Alkaline Phosphatase 139 U/L (45-117) H 05/16/23 11:32 Lipase 58 U/L (13-75) 05/12/23 04:20 Home Medications: Cholecalciferol (Vitamin D3) [Vitamin D 5,000 IU Cap*] 5,000 unit PO DAILY 05/11/23 Furosemide 40 mg PO BIDL 05/11/23 Lactulose 20 gm PO TID 05/11/23 Levothyroxine [Synthroid*] 75 mcg PO [id number] 05/11/23 Pantoprazole [Protonix Tab*] 40 mg PO BID 05/11/23 Perservision Areds-2 1 tab PO DAILY 05/11/23 Propranolol [Inderal*] 10 mg PO BID 05/11/23 Temazepam [Restoril] 7.5 mg PO BEDTIME 05/11/23 Zifoxan 550 mg PO BID 05/11/23 Zinc Sulfate 220 mg PO NOON 05/11/23 Oxycodone HCl 5 mg PO Q6H PRN #20 tab 05/17/23 Polyethyl Gly 3350 [Glycolax*] 17 gm PO DAILY PRN #30 packet 05/17/23 Spironolactone [Aldactone*] 50 mg PO DAILY #60 tab 05/17/23 Tamsulosin [Flomax*] 0.8 mg PO DAILY #60 cap 05/17/23 New Medications: Spironolactone [Aldactone*] 50 mg PO DAILY #60 tab Tamsulosin [Flomax*] 0.8 mg PO DAILY #60 cap Polyethyl Gly 3350 [Glycolax*] 17 gm PO DAILY PRN #30 packet PRN Reason: Constipation Oxycodone HCl 5 mg PO Q6H PRN #20 tab PRN Reason: PAIN Physician Discharge Instructions: PROBLEM: INGUINAL HERNIA REPAIR GOAL: Clear understanding of disease process INSTRUCTIONS: FOLLOW UP WITH DR MONSON IN 1-2 WEEKS FOLLOW UP WITH YOUR PCP IN 1-2 WEEKS RETURN TO ER FOR ANY EMERGENCY TAKE MEDICATIONS PRESCRIBED Diet: AHA Activity: Fall precautions DME DME: Date Ordered: Name of Company: [employer] Services Needed: None Name of Company: Date or Referral: IMMUNIZATION Influenza Vaccine Indicated: No Influenza Vaccine Given: Date Given: Pneumonia Vaccine Indicated: No Pneumonia Vaccine Given: Date Given: Diet: AHA Activity: Fall precautions Followup: Susan Howard NP [Primary Care Provider] - 1 Week Eligio Monson MD [ACTIVE - CAN ADMIT] - (on Saturday05/22/2023) Time spent managing pt's care (in minutes): 38
[2023-05-17] MEDS ORDERED: ZINC SULFATE 50 MG PO SCH (12:00)
[2023-05-17] MEDS ORDERED: ZINC SULFATE 220 MG CAP PO SCH (12:00)
== END 2023-05-17 12:49 | disposition home or self-care (01) | DRG 351 ==
LOC: ER 09:18 → ERHOLD 16:48 → 3RD-ICU 19:11 → 4TH 05-14 15:22
PROVIDERS: ADMIT Hospitalist; ATTEND Internal Medicine
PROC: 0YQ54ZZ Repair Right Inguinal Region, Percutaneous Endoscopic Approach (ICD-10-PCS; principal; 2023-05-11 16:00)
PROC: 30233N1 Transfusion of Nonautologous Red Blood Cells into Peripheral Vein, Percutaneous Approach (ICD-10-PCS; 2023-05-13)
DX: K40.31 Unilateral inguinal hernia, with obstruction, without gangrene, recurrent (principal); D62 Acute posthemorrhagic anemia; E87.20 Acidosis, unspecified; N17.9 Acute kidney failure, unspecified; N13.30 Unspecified hydronephrosis; E46 Unspecified protein-calorie malnutrition; K72.10 Chronic hepatic failure without coma; I10 Essential (primary) hypertension; E78.5 Hyperlipidemia, unspecified; E87.5 Hyperkalemia; C61 Malignant neoplasm of prostate; I49.5 Sick sinus syndrome; E83.42 Hypomagnesemia; E83.39 Other disorders of phosphorus metabolism; E87.6 Hypokalemia; K75.81 Nonalcoholic steatohepatitis (NASH); K74.60 Unspecified cirrhosis of liver; I25.10 Atherosclerotic heart disease of native coronary artery without angina pectoris; N40.1 Benign prostatic hyperplasia with lower urinary tract symptoms; R33.8 Other retention of urine; Z88.2 Allergy status to sulfonamides; Z95.5 Presence of coronary angioplasty implant and graft; Z95.0 Presence of cardiac pacemaker; Z79.02 Long term (current) use of antithrombotics/antiplatelets; Z68.23 Body mass index [BMI] 23.0-23.9, adult; Z76.82 Awaiting organ transplant status; Z91.018 Allergy to other foods; Z79.899 Other long term (current) drug therapy; Z79.890 Hormone replacement therapy
CPT/HCPCS: 36415; 74177; 76770; 76857; 80048; 80053; 81001; 82550; 82570; 83605; 83690; 83735; 84100; 84156; 84443; 85014; 85018; 85025; 85027; 85610; 86850; 86900; 86901; 86920; 87086; 87088; 96365; 96375; 99285; J0690; J1170; J1610; J1815; J1940; J2175; J2250; J2405; J2543; J2550; J2704; J2710; J3010; J3430; J3475; J7030; J7040; J7050; J7120; P9016; Q9967